=== PATIENT | female | born 1970 | race Caucasian/White ===

== ENCOUNTER 2016-05-22 15:23 | Emergency (ER) | payer MEDICAID ==
[2016-05-22] VITALS (7 sets, daily range): BP systolic 103–120; BP diastolic 65–81
[~2016-05-22] VITALS: Ht 157.5 cm; Wt 58.0 kg
[~2016-05-22 15:23] MED LIST: CEFD300C2 PO; CLIN300C93 PO; CLON2TAB PO; METH10SO PO; METH40TA3 PO; NICO1PAT5 TD; OXYC5CAP4 PO; PENI500T PO
[2016-05-22 17:10] LABS: BLOOD UREA NITROGEN 13 mg/dL (7-18)
[2016-05-22 17:11] LABS: HEMOGLOBIN 6.9 g/dL (11.7-16.4)
[2016-05-22 17:27] LABS: ANISOCYTOSIS 1+; HYPOCHROMIA 1+; MICROCYTOSIS 2+; OVALOCYTES 1+; POLYCHROMASIA 1+
[2016-05-23 00:34] VITALS: BP 110/75
[2016-05-23 01:20] VITALS: BP 119/78
== END 2016-05-23 01:24 | disposition home or self-care (01) ==
LOC: ED 21:46
DX: D50.0 Iron deficiency anemia secondary to blood loss (chronic) (principal); R60.0 Localized edema; E88.09 Other disorders of plasma-protein metabolism, not elsewhere classified; Z90.710 Acquired absence of both cervix and uterus; Z88.8 Allergy status to other drugs, medicaments and biological substances
CPT/HCPCS: 36415; 80048; 82040; 85025; 86850; 86900; 86923; 93005; 99285; P9016; 36430

== ENCOUNTER 2016-11-30 11:31 | Inpatient (IN) | payer MEDICAID ==
[~2016-11-30] VITALS: Ht 157.5 cm; Wt 72.3 kg
[2016-11-30] VITALS (13 sets, daily range): BP systolic 92–119; BP diastolic 57–78
[~2016-11-30 11:31] MED LIST changes: -CEFD300C2 PO; +CEFD300C37 PO; +CLIN300C8 PO; -CLIN300C93 PO; +NICO-487 TD; -NICO1PAT5 TD; +OXYC5CAP2 PO; -OXYC5CAP4 PO
[2016-11-30] MEDS ORDERED: SODIUM CHLORIDE 0.9% 1,000 ML IV ONE (12:14)
[2016-11-30] MEDS ORDERED: ASPIRIN 81 MG TABLET CHEW PO ONE (12:30)
[2016-11-30] MEDS ORDERED: LORazepam 2 MG/ML, 1ML IVPush ONE (12:30)
[2016-11-30 12:38] LABS: DAU SCREEN DISCLAIMER
[2016-11-30] MEDS ORDERED: ASPIRIN 81 MG TABLET CHEW ONE (12:39)
[2016-11-30] MEDS ORDERED: LORazepam 2 MG/ML, 1ML ONE (12:40)
[2016-11-30 12:56] LABS: BLOOD UREA NITROGEN 18 mg/dL (7-18)
[2016-11-30 12:57] LABS: WHITE BLOOD COUNT 15.3 x10^3/uL (3.4-10)
[2016-11-30 13:02] LABS: ASPARTATE AMINO TRANSFERASE 21 U/L (15-37)
[2016-11-30 13:03] LABS: IS PT STATUS REG ER OR PRE ER? YES
[2016-11-30 13:05] LABS: HEMOGLOBIN 5.2 g/dL (11.7-16.4)
[2016-11-30 13:06] LABS: HEMATOCRIT 18.3 % (34.6-47.8)
[2016-11-30 13:18] LABS: DIFF TOTAL CELLS COUNTED 100 CELL DIFF
[2016-11-30 13:21] LABS: ANISOCYTOSIS 2+; HYPOCHROMIA 1+; MICROCYTOSIS 2+; POLYCHROMASIA 1+; VERIFY COUNTS? YES
[2016-11-30 13:22] LABS: OVALOCYTES 1+; TARGET CELLS 1+
[2016-11-30 14:38] LABS: TOTAL IRON BINDING CAPACITY 584 mcg/dL (250-450)
[2016-11-30] MEDS ORDERED: OMNIPAQUE 350 MG/ML, 100ML BOTTLE ONE (15:24)
[2016-11-30] MEDS ORDERED: ACETAMINOPHEN 325 MG TABLET PO PRN (17:30)
[2016-11-30] MEDS ORDERED: ONDANSETRON ODT 4 MG PO PRN (17:30)
[2016-11-30] MEDS ORDERED: DOCUSATE 100 MG CAPSULE PO PRN (17:30)
[2016-11-30] MEDS ORDERED: BISACODYL 10 MG SUPP PR PRN (17:30)
[2016-11-30] MEDS ORDERED: ONDANSETRON 2MG/ML, 2ML IVPush PRN (17:30)
[2016-11-30] MEDS ORDERED: POLYETHYLENE GLYCOL 17 GM PACKET PO PRN (17:30)
[2016-11-30] MEDS: GUAIFENESIN 200 MG TABLET PO SCH ×2 (18:35→20:15)
[2016-11-30] MEDS: NICOTINE 7 MG/24 HR PATCH.TD24 TD SCH (19:17)
[2016-11-30] MEDS: AMOXICILLIN/CLAV 875-125MG TABLET PO SCH (20:15)
[2016-11-30] MEDS: SODIUM CHLORIDE NASAL SPRAY 45ML BOTTLE NAS SCH (21:41)
[2016-11-30] MEDS: FLUTICASONE NASAL SPRAY 16GM NAS SCH (21:41)
[2016-12-01] MEDS: SODIUM CHLORIDE 0.9% 1,000 ML IV SCH ×2 (00:15→11:41)
[2016-12-01 01:42] LABS: HEMATOCRIT 27.1 % (34.6-47.8); HEMOGLOBIN 8.4 g/dL (11.7-16.4)
[2016-12-01 01:49] VITALS: BP 103/63
[2016-12-01] MEDS: GUAIFENESIN 200 MG TABLET PO SCH ×3 (05:30→17:06)
[2016-12-01 06:28] LABS: BLOOD UREA NITROGEN 19 mg/dL (7-18)
[2016-12-01 06:32] LABS: ASPARTATE AMINO TRANSFERASE 14 U/L (15-37)
[2016-12-01 06:47] LABS: HEMATOCRIT 28.1 % (34.6-47.8); HEMOGLOBIN 8.7 g/dL (11.7-16.4); WHITE BLOOD COUNT 11.6 x10^3/uL (3.4-10)
[2016-12-01 06:48] LABS: DIFF TOTAL CELLS COUNTED 100 CELL DIFF
[2016-12-01 06:50] LABS: ANISOCYTOSIS 2+; HYPOCHROMIA 2+; MICROCYTOSIS 2+; POLYCHROMASIA 1+; VERIFY COUNTS? YES
[2016-12-01 06:51] LABS: OVALOCYTES 1+
[2016-12-01 07:00] LABS: SCHISTOCYTES 1+
[2016-12-01] MEDS ORDERED: PANTOPRAZOLE 40 MG IV IVPush SCH (07:30)
[2016-12-01 07:42] VITALS: BP 105/67
[2016-12-01] MEDS: AMOXICILLIN/CLAV 875-125MG TABLET PO SCH (08:31)
[2016-12-01] MEDS: SODIUM CHLORIDE NASAL SPRAY 45ML BOTTLE NAS SCH (08:31)
[2016-12-01] MEDS: FLUTICASONE NASAL SPRAY 16GM NAS SCH (08:31)
[2016-12-01] MEDS ORDERED: METHADONE 10 MG TABLET PO SCH (09:00)
[2016-12-01] MEDS ORDERED: IRON SUCROSE COMPLEX 100MG/5ML IV SCH (09:00)
[2016-12-01 11:54] LABS: HEMATOCRIT 27.4 % (34.6-47.8); HEMOGLOBIN 8.6 g/dL (11.7-16.4)
[2016-12-01 13:08] VITALS: BP 110/57
[2016-12-01] MEDS ORDERED: METH-356 PO (15:42)
[2016-12-01] MEDS ORDERED: FLUT16SP NAS (15:42)
[2016-12-01] MEDS ORDERED: AMOX1TAB12 PO (15:42)
[2016-12-01 16:16] LABS: HEMATOCRIT 27.2 % (34.6-47.8); HEMOGLOBIN 8.3 g/dL (11.7-16.4)
[2016-12-01] MEDS: NICOTINE 7 MG/24 HR PATCH.TD24 TD SCH (18:18)
[2016-12-02] MEDS ORDERED: METHADONE 10 MG TABLET PO SCH (09:00)
== END 2016-12-01 18:35 | disposition home or self-care (01) | DRG 812 ==
LOC: ED 15:26 → EDIP 15:27 → ED 15:36 → 3NW 16:31
PROVIDERS: ADMIT Hospitalist; ATTEND Hospitalist
PROC: 30233N1 Transfusion of Nonautologous Red Blood Cells into Peripheral Vein, Percutaneous Approach (ICD-10-PCS; principal; 2016-11-30)
DX: D50.9 Iron deficiency anemia, unspecified (principal); E44.0 Moderate protein-calorie malnutrition; E87.1 Hypo-osmolality and hyponatremia; D47.3 Essential (hemorrhagic) thrombocythemia; Z68.29 Body mass index [BMI] 29.0-29.9, adult; F15.10 Other stimulant abuse, uncomplicated; F17.200 Nicotine dependence, unspecified, uncomplicated; F41.1 Generalized anxiety disorder; I10 Essential (primary) hypertension; J01.90 Acute sinusitis, unspecified; J40 Bronchitis, not specified as acute or chronic; K44.9 Diaphragmatic hernia without obstruction or gangrene; Z85.43 Personal history of malignant neoplasm of ovary; Z87.11 Personal history of peptic ulcer disease; Z88.6 Allergy status to analgesic agent; Z88.8 Allergy status to other drugs, medicaments and biological substances
CPT/HCPCS: 36415; 71010; 71020; 71275; 80053; 80307; 82607; 82746; 83540; 83550; 83880; 84443; 84484; 85014; 85018; 85025; 85045; 85379; 85610; 86850; 86900; 86923; 93005; 93306; 94640; J1756; Q9967; C9113; G0479; J2060; J7030; P9016

== ENCOUNTER 2017-01-25 16:34 | Inpatient (IN) | payer MEDICAID ==
[~2017-01-25] VITALS: Ht 157.5 cm; Wt 76.8 kg
[2017-01-25] VITALS (7 sets, daily range): BP systolic 102–114; BP diastolic 63–78
[~2017-01-25 16:34] MED LIST changes: +AMOX1TAB12 PO; +FLUT16SP NAS; +METH-356 PO
[2017-01-25 17:31] LABS: ASPARTATE AMINO TRANSFERASE 14 U/L (15-37); BLOOD UREA NITROGEN 14 mg/dL (7-18); WHITE BLOOD COUNT 12.7 x10^3/uL (3.4-10)
[2017-01-25 17:33] LABS: HEMATOCRIT 16.1 % (34.6-47.8); HEMOGLOBIN 4.6 g/dL (11.7-16.4)
[2017-01-25] MEDS ORDERED: SODIUM CHLORIDE 0.9% 1,000ML IVBOLUS ONE (18:00)
[2017-01-25 18:06] LABS: DIFF TOTAL CELLS COUNTED 100 CELL DIFF
[2017-01-25 18:20] LABS: VERIFY COUNTS? YES
[2017-01-25 18:21] LABS: HYPOCHROMIA 3+; MICROCYTOSIS 2+; POLYCHROMASIA 1+
[2017-01-25 18:23] LABS: OVALOCYTES 1+; SPHEROCYTES 1+
[2017-01-25] MEDS ORDERED: SODIUM CHLORIDE FLUSH 10ML SYR IVF ONE (18:30)
[2017-01-25] MEDS ORDERED: SODIUM CHLORIDE FLUSH 10ML SYR IVF PRN (19:00)
[2017-01-25] MEDS ORDERED: CLON2TAB PO (20:40)
[2017-01-25] MEDS ORDERED: SODIUM CHLORIDE 0.9% 1,000 ML IV SCH (23:35)
[2017-01-26] VITALS (9 sets, daily range): BP systolic 99–124; BP diastolic 66–80
[2017-01-26] MEDS ORDERED: morphine SULFATE 10 MG/ML, 1ML IVPush PRN
[2017-01-26] MEDS ORDERED: POLYETHYLENE GLYCOL 17 GM PACKET PO PRN
[2017-01-26] MEDS ORDERED: hydrALAzine 20 MG/ML, 1ML IVPush PRN
[2017-01-26] MEDS ORDERED: OXYcodone IR 5MG TABLET PO PRN
[2017-01-26] MEDS ORDERED: ENALAPRILAT 1.25 MG/ML, 2ML IVPush PRN
[2017-01-26] MEDS ORDERED: BISACODYL 10 MG SUPP PR PRN
[2017-01-26] MEDS ORDERED: ONDANSETRON 2MG/ML, 2ML IVPush PRN
[2017-01-26] MEDS ORDERED: ACETAMINOPHEN 325 MG TABLET PO PRN
[2017-01-26] MEDS: NICOTINE 7 MG/24 HR PATCH.TD24 TD SCH (00:22)
[2017-01-26 01:33] LABS: C-REACTIVE PROTEIN, QUANT 0.31 mg/dL (0.02-0.49)
[2017-01-26 01:59] LABS: FERRITIN 1.4 ng/mL (8-252)
[2017-01-26 02:31] LABS: HIV 1&2 ANTIBODY SCREEN Nonreactive (Nonreactive); HIV-1 p24 ANTIGEN Nonreactive (Nonreactive)
[2017-01-26 06:23] LABS: WHITE BLOOD COUNT 7.8 x10^3/uL (3.4-10)
[2017-01-26 06:26] LABS: ASPARTATE AMINO TRANSFERASE 13 U/L (15-37); BLOOD UREA NITROGEN 15 mg/dL (7-18)
[2017-01-26 06:30] LABS: HEMATOCRIT 20.2 % (34.6-47.8); HEMOGLOBIN 6.3 g/dL (11.7-16.4)
[2017-01-26 06:40] LABS: DIFF TOTAL CELLS COUNTED 100 CELL DIFF
[2017-01-26 06:41] LABS: ANISOCYTOSIS 2+; HYPOCHROMIA 2+; MICROCYTOSIS 2+; OVALOCYTES 1+; VERIFY COUNTS? YES
[2017-01-26 06:42] LABS: SCHISTOCYTES 1+
[2017-01-26] MEDS: SENNA/DOCUSATE TABLET PO SCH (08:16)
[2017-01-26] MEDS: FLUTICASONE NASAL SPRAY 16GM NAS SCH ×3 (08:16→20:51)
[2017-01-26] MEDS ORDERED: METHADONE 10 MG TABLET PO SCH (09:00)
[2017-01-26] MEDS: IRON SUCROSE COMPLEX 100MG/5ML IV SCH (13:05)
[2017-01-26 13:56] LABS: HEMATOCRIT 26.6 % (34.6-47.8); HEMOGLOBIN 8.3 g/dL (11.7-16.4)
[2017-01-26 21:11] LABS: HEMATOCRIT 26.6 % (34.6-47.8); HEMOGLOBIN 8.3 g/dL (11.7-16.4)
[2017-01-27] MEDS: NICOTINE 7 MG/24 HR PATCH.TD24 TD SCH (00:53)
[2017-01-27 02:02] VITALS: BP 113/74
[2017-01-27 06:38] VITALS: BP 116/77
[2017-01-27] MEDS ORDERED: CHOL10003 PO (07:37)
[2017-01-27] MEDS ORDERED: FERR325T18 PO (07:37)
[2017-01-27] MEDS: FLUTICASONE NASAL SPRAY 16GM NAS SCH (07:49)
[2017-01-27] MEDS: IRON SUCROSE COMPLEX 100MG/5ML IV SCH (07:50)
[2017-01-27] MEDS: SENNA/DOCUSATE TABLET PO SCH (07:51)
[2017-01-27] MEDS: METHADONE 10 MG TABLET PO SCH ×2 (07:51→09:00)
[2017-01-27] MEDS ORDERED: CHOLECALCIFEROL 1,000 UNIT TABLET PO SCH (09:00)
[2017-01-27] MEDS ORDERED: PNEUMOCOCCAL 23 VACCINE IM-VACC ONE (10:30)
[2017-01-27] MEDS ORDERED: METR500T8 PO (14:22)
== END 2017-01-27 10:54 | disposition home or self-care (01) | DRG 812 ==
LOC: ED 18:31 → EDIP 18:32 → ED 18:36 → 4WST 20:12
PROVIDERS: ADMIT Internal Medicine; ATTEND Internal Medicine
PROC: 30233N1 Transfusion of Nonautologous Red Blood Cells into Peripheral Vein, Percutaneous Approach (ICD-10-PCS; principal; 2017-01-25)
DX: D50.0 Iron deficiency anemia secondary to blood loss (chronic) (principal); E44.0 Moderate protein-calorie malnutrition; I95.9 Hypotension, unspecified; B96.89 Other specified bacterial agents as the cause of diseases classified elsewhere; D58.9 Hereditary hemolytic anemia, unspecified; D72.829 Elevated white blood cell count, unspecified; F11.90 Opioid use, unspecified, uncomplicated; F15.10 Other stimulant abuse, uncomplicated; F17.200 Nicotine dependence, unspecified, uncomplicated; F41.1 Generalized anxiety disorder; J45.909 Unspecified asthma, uncomplicated; K44.9 Diaphragmatic hernia without obstruction or gangrene; N76.0 Acute vaginitis; Z90.710 Acquired absence of both cervix and uterus; G43.909 Migraine, unspecified, not intractable, without status migrainosus; Z90.49 Acquired absence of other specified parts of digestive tract; Z87.81 Personal history of (healed) traumatic fracture; Z71.6 Tobacco abuse counseling
CPT/HCPCS: 36415; 36430; 80053; 80061; 81001; 82247; 82248; 82306; 82607; 82728; 82746; 83010; 83036; 83540; 83550; 83615; 83735; 84439; 84443; 84466; 85014; 85018; 85025; 85045; 85610; 85651; 85730; 86140; 86157; 86703; 86850; 86900; 86923; 87086; 87899; 90732; 93005; 93306; J1756; G0435; J7030; P9016

== ENCOUNTER 2017-03-14 07:49 | Inpatient (IN) | payer MEDICAID ==
[2017-03-14] VITALS (9 sets, daily range): BP systolic 100–109; BP diastolic 63–77
[~2017-03-14] VITALS: Ht 157.5 cm; Wt 76.2 kg
[~2017-03-14 07:49] MED LIST changes: +CHOL10003 PO; +FERR325T18 PO; +METR500T8 PO
[2017-03-14] MEDS ORDERED: SODIUM CHLORIDE FLUSH 10ML SYR IVF ONE (08:00)
[2017-03-14] MEDS ORDERED: SODIUM CHLORIDE 0.9% 1,000ML IVBOLUS ONE (08:00)
[2017-03-14] MEDS ORDERED: MECLIZINE CHEWABLE 25 MG TAB PO ONE (08:00)
[2017-03-14 08:44] LABS: ANION GAP 6 mmol/L (5-15); CALCIUM 7.6 mg/dL (8.5-10.1); CHLORIDE 105 mmol/L (98-107); CREATININE 0.82 mg/dL (0.55-1.02)
[2017-03-14 08:45] LABS: MEAN CORPUSCULAR HEMOGLOBIN 19.1 pg (27.0-34.8); MEAN CORPUSCULAR VOLUME 64.6 fL (80-100); MEAN PLATELET VOLUME 8.9 fL (7.4-10.4); PLATELET COUNT 238 x10^3/uL (130-400); RED BLOOD COUNT 2.61 x10^6/uL (3.82-5.3); RED CELL DISTRIBUTION WIDTH 27.1 % (9.6-15.2)
[2017-03-14 08:48] LABS: TROPONIN I < 0.015 ng/mL (0.000-0.045)
[2017-03-14 08:57] LABS: MEAN CORPUSCULAR HGB CONC 29.2 g/dL (32.4-35.8)
[2017-03-14 08:58] LABS: HEMOGRAM NOTE RECHECKED
[2017-03-14 09:03] LABS: MD YES
[2017-03-14 09:05] LABS: BAND#(MANUAL) 0.11 x10^3/uL; BANDS%(MANUAL) 1 % (0-7); BASOS#(MANUAL) 0.11 x10^3/uL (0-0.1); BASOS% (MANUAL) 1 % (0-1); EOS#(MANUAL) 0.77 x10^3/uL (0.0-0.4); EOS% (MANUAL) 7 % (1-7); LYMPH#(MANUAL) 1.65 x10^3/uL (1-3.4); LYMPHS% (MANUAL) 15 % (22-44); MONOS#(MANUAL) 0.33 x10^3/uL (0.3-2.7); MONOS% (MANUAL) 3 % (2-9); SEG#(MANUAL) 8.03 x10^3/uL (1.8-6.8); SEGS% (MANUAL) 73 % (42-75)
[2017-03-14 09:09] LABS: ANISOCYTOSIS 2+; HYPOCHROMIA 2+; MICROCYTOSIS 2+; OVALOCYTES 1+
[2017-03-14 09:10] LABS: POLYCHROMASIA 1+; TEAR DROPS 1+
[2017-03-14 09:13] LABS: <PLATELET ESTIMATE> ADEQUATE; <PLT MORPHOLOGY> NORMAL PLT MORPH
[2017-03-14 09:28] LABS: INTERNATIONAL NORMALIZED RATIO 0.98 (0.93-1.1); PROTHROMBIN TIME 10.1 Seconds (9.6-11.5)
[2017-03-14] MEDS ORDERED: SODIUM CHLORIDE FLUSH 10ML SYR IVF PRN (09:30)
[2017-03-14] MEDS ORDERED: LABETALOL 5MG/ML, 20ML IVPush PRN (10:30)
[2017-03-14] MEDS ORDERED: HYDROcodone/APAP 5/325 TABLET PO PRN (10:30)
[2017-03-14] MEDS ORDERED: ONDANSETRON 2MG/ML, 2ML IVPush PRN (10:30)
[2017-03-14] MEDS ORDERED: ONDANSETRON ODT 4 MG PO PRN (10:30)
[2017-03-14] MEDS ORDERED: PANTOPRAZOLE 80 MG in SODIUM CHLORIDE 0.9% 50 ML IV ONE (12:16)
[2017-03-14 12:45] LABS: MICROSCOPIC AUTO
[2017-03-14 12:53] LABS: AMPHETAMINE SCREEN, URINE Positive (Negative); BARBITURATE SCREEN, URINE Negative (Negative); BENZODIAZEPINE SCREEN, URINE Positive (Negative); CANNABINOID SCREEN, URINE Negative (Negative); COCAINE SCREEN, URINE Negative (Negative); OPIATE SCREEN, URINE Negative (Negative)
[2017-03-14 12:54] LABS: METHADONE SCREEN, URINE Positive (Negative)
[2017-03-14] MEDS ORDERED: ALBUTEROL SULFATE 2.5 MG/3 ML NPPB PRN (16:00)
[2017-03-14] MEDS: D5%-0.45% NACL 1,000 ML IV SCH (16:33)
[2017-03-14] MEDS: PANTOPRAZOLE 80 MG in SODIUM CHLORIDE 0.9% 100 ML IV SCH (17:55)
[2017-03-14] MEDS: CEFTRIAXONE PMX 1GM/50ML 50 ML IV SCH (17:56)
[2017-03-14 18:31] LABS: RAPID INFLUENZA A Negative (Negative); RAPID INFLUENZA B Negative (Negative)
[2017-03-14] MEDS: FLUTICASONE NASAL SPRAY 16GM NAS SCH (21:02)
[2017-03-15] VITALS (8 sets, daily range): BP systolic 95–120; BP diastolic 58–78
[2017-03-15] MEDS: D5%-0.45% NACL 1,000 ML IV SCH ×2 (04:54→15:00)
[2017-03-15] MEDS: PANTOPRAZOLE 80 MG in SODIUM CHLORIDE 0.9% 100 ML IV SCH (04:54)
[2017-03-15 05:31] LABS: ALBUMIN 2.7 g/dL (3.4-5.0); ANION GAP 6 mmol/L (5-15); CALCIUM 7.6 mg/dL (8.5-10.1); CHLORIDE 107 mmol/L (98-107); CREATININE 0.82 mg/dL (0.55-1.02)
[2017-03-15] MEDS: METHADONE 10 MG TABLET PO SCH (06:05)
[2017-03-15 06:35] LABS: MEAN CORPUSCULAR HEMOGLOBIN 22.1 pg (27.0-34.8); MEAN CORPUSCULAR HGB CONC 31.2 g/dL (32.4-35.8); MEAN PLATELET VOLUME 10.5 fL (7.4-10.4); PLATELET COUNT 254 x10^3/uL (130-400); RED BLOOD COUNT 3.02 x10^6/uL (3.82-5.3); RED CELL DISTRIBUTION WIDTH 27.2 % (9.6-15.2)
[2017-03-15 06:38] LABS: MD YES
[2017-03-15 06:43] LABS: ANISOCYTOSIS 2+; LYMPH#(MANUAL) 0.74 x10^3/uL (1-3.4); LYMPHS% (MANUAL) 6 % (22-44); MONOS#(MANUAL) 0.74 x10^3/uL (0.3-2.7); MONOS% (MANUAL) 6 % (2-9); SEG#(MANUAL) 10.91 x10^3/uL (1.8-6.8); SEGS% (MANUAL) 88 % (42-75)
[2017-03-15 06:44] LABS: HYPOCHROMIA 1+; POLYCHROMASIA 1+
[2017-03-15 06:45] LABS: <PLATELET ESTIMATE> ADEQUATE; <PLT MORPHOLOGY> NORMAL PLT MORPH; MICROCYTOSIS 2+; OVALOCYTES 1+
[2017-03-15] MEDS ORDERED: METHADONE 10 MG TABLET PO SCH (09:00)
[2017-03-15] MEDS ORDERED: MIDAZOLAM 1 MG/ML, 2ML ONE (09:10)
[2017-03-15] MEDS ORDERED: FENTANYL PF 100 MCG/2ML ONE ×2 (09:10)
[2017-03-15] MEDS ORDERED: GOLYTELY 4,000ML ORAL.SOL PO ONE ×2 (10:00→22:00)
[2017-03-15] MEDS: CHOLECALCIFEROL 1,000 UNIT TABLET PO SCH (10:28)
[2017-03-15] MEDS: SENNA/DOCUSATE TABLET PO SCH (10:28)
[2017-03-15] MEDS: FLUTICASONE NASAL SPRAY 16GM NAS SCH ×2 (10:28→20:17)
[2017-03-15] MEDS: CEFTRIAXONE PMX 1GM/50ML 50 ML IV SCH (17:28)
[2017-03-15 18:05] LABS: OCCULT BLOOD POSITIVE (NEGATIVE)
[2017-03-15] MEDS: ACETAMINOPHEN 325 MG TABLET PO PRN (22:32)
[2017-03-16] MEDS: D5%-0.45% NACL 1,000 ML IV SCH ×2 (01:03→15:58)
[2017-03-16 01:35] VITALS: BP 124/73
[2017-03-16 06:35] LABS: MEAN CORPUSCULAR HEMOGLOBIN 22.4 pg (27.0-34.8); MEAN CORPUSCULAR HGB CONC 30.7 g/dL (32.4-35.8); MEAN CORPUSCULAR VOLUME 73.1 fL (80-100); MEAN PLATELET VOLUME 9.4 fL (7.4-10.4); PLATELET COUNT 212 x10^3/uL (130-400); RED BLOOD COUNT 3.42 x10^6/uL (3.82-5.3); RED CELL DISTRIBUTION WIDTH 26.3 % (9.6-15.2)
[2017-03-16 06:47] LABS: ALBUMIN 2.6 g/dL (3.4-5.0); ANION GAP 6 mmol/L (5-15); CALCIUM 7.8 mg/dL (8.5-10.1); CHLORIDE 107 mmol/L (98-107); CREATININE 0.69 mg/dL (0.55-1.02)
[2017-03-16 07:01] LABS: BASOPHILS # (AUTO) 0.01 x10^3/uL (0-0.1); BASOPHILS % (AUTO) 0 % (0-1); EOSINOPHILS # (AUTO) 0.09 x10^3/uL (0-0.4); EOSINOPHILS % (AUTO) 1 % (1-7); LYMPHOCYTES # (AUTO) 3.39 x10^3/uL (1-3.4); LYMPHOCYTES % (AUTO) 22 % (22-44); MD MORPH REVIEW ONLY; MONOCYTES % (AUTO) 6 % (2-9); NEUTROPHILS % (AUTO) 71 % (42-75)
[2017-03-16 07:04] LABS: <PLATELET ESTIMATE> ADEQUATE; <PLT MORPHOLOGY> NORMAL PLT MORPH; ANISOCYTOSIS 2+; HYPOCHROMIA 2+; MICROCYTOSIS 2+
[2017-03-16 08:13] VITALS: BP 116/72
[2017-03-16] MEDS ORDERED: MIDAZOLAM 1 MG/ML, 2ML ONE (08:26)
[2017-03-16] MEDS ORDERED: PROPOFOL 10 MG/ML, 20ML ONE (08:30)
[2017-03-16] MEDS: FLUTICASONE NASAL SPRAY 16GM NAS SCH ×2 (09:00→20:48)
[2017-03-16] MEDS: SENNA/DOCUSATE TABLET PO SCH (09:00)
[2017-03-16] MEDS ORDERED: FENTANYL PF 100 MCG/2ML IV PRN (09:00)
[2017-03-16] MEDS ORDERED: OXYcodone 5 MG/5 ML ORAL.SOL UDC PO PRN (09:00)
[2017-03-16] MEDS ORDERED: HYDROcodone/APAP 7.5-325MG/15ML UDC PO PRN (09:00)
[2017-03-16] MEDS ORDERED: ONDANSETRON 2MG/ML, 2ML IVPush PRN (09:00)
[2017-03-16] MEDS ORDERED: ACETAMINOPHEN 325 MG TABLET PO PRN (09:00)
[2017-03-16] MEDS ORDERED: ACETAMINOPHEN 650 MG/20.3 ML UDC ONE (09:07)
[2017-03-16] MEDS ORDERED: OXYcodone 5 MG/5 ML ORAL.SOL UDC ONE (09:07)
[2017-03-16] MEDS: ACETAMINOPHEN 325 MG TABLET PO PRN (09:10)
[2017-03-16] MEDS ORDERED: FENTANYL PF 100 MCG/2ML ONE (09:11)
[2017-03-16] MEDS: METHADONE 10 MG TABLET PO SCH (09:43)
[2017-03-16] MEDS: CHOLECALCIFEROL 1,000 UNIT TABLET PO SCH (09:45)
[2017-03-16] MEDS: OMEPRAZOLE 20 MG CAPSULE.DR PO SCH (09:46)
[2017-03-16] MEDS: IRON SUCROSE COMPLEX 100MG/5ML IV SCH (09:46)
[2017-03-16 15:20] VITALS: BP 123/75
[2017-03-16 15:59] VITALS: BP 123/75
[2017-03-16] MEDS: CEFTRIAXONE PMX 1GM/50ML 50 ML IV SCH (16:30)
[2017-03-16 19:26] VITALS: BP 123/74
[2017-03-17 01:10] VITALS: BP 110/69
[2017-03-17] MEDS: D5%-0.45% NACL 1,000 ML IV SCH ×2 (02:00→14:43)
[2017-03-17 02:57] LABS: MEAN CORPUSCULAR HEMOGLOBIN 22.3 pg (27.0-34.8); MEAN CORPUSCULAR HGB CONC 30.4 g/dL (32.4-35.8); MEAN CORPUSCULAR VOLUME 73.5 fL (80-100); MEAN PLATELET VOLUME 10.5 fL (7.4-10.4); PLATELET COUNT 238 x10^3/uL (130-400); RED BLOOD COUNT 3.36 x10^6/uL (3.82-5.3); RED CELL DISTRIBUTION WIDTH 27.9 % (9.6-15.2)
[2017-03-17 02:59] LABS: ALBUMIN 2.6 g/dL (3.4-5.0); ANION GAP 9 mmol/L (5-15); CALCIUM 7.7 mg/dL (8.5-10.1); CHLORIDE 106 mmol/L (98-107); CREATININE 0.75 mg/dL (0.55-1.02)
[2017-03-17 03:31] LABS: BASOPHILS # (AUTO) 0.01 x10^3/uL (0-0.1); BASOPHILS % (AUTO) 0 % (0-1); EOSINOPHILS # (AUTO) 0.01 x10^3/uL (0-0.4); EOSINOPHILS % (AUTO) 0 % (1-7); LYMPHOCYTES # (AUTO) 2.32 x10^3/uL (1-3.4); LYMPHOCYTES % (AUTO) 18 % (22-44); MD MORPH REVIEW ONLY; MONOCYTES # (AUTO) 0.78 x10^3/uL (0.2-0.8); MONOCYTES % (AUTO) 6 % (2-9); NEUTROPHILS # (AUTO) 10.11 x10^3/uL (1.8-6.8); NEUTROPHILS % (AUTO) 76 % (42-75)
[2017-03-17 03:32] LABS: ANISOCYTOSIS 2+; HYPOCHROMIA 2+; MICROCYTOSIS 2+; POLYCHROMASIA 1+
[2017-03-17 03:34] LABS: OVALOCYTES 1+; TEAR DROPS 1+
[2017-03-17 03:35] LABS: <PLATELET ESTIMATE> ADEQUATE; LARGE PLATELETS 1+
[2017-03-17] MEDS: METHADONE 10 MG TABLET PO SCH (05:39)
[2017-03-17 07:17] VITALS: BP 130/85
[2017-03-17] MEDS ORDERED: MAGNESIUM SULFATE PMX 2GM/50ML 50 ML IV ONE (08:00)
[2017-03-17] MEDS ORDERED: POTASSIUM CHLORIDE 20 MEQ TAB.ER.PRT PO ONE (08:00)
[2017-03-17] MEDS: SENNA/DOCUSATE TABLET PO SCH (08:02)
[2017-03-17] MEDS: CHOLECALCIFEROL 1,000 UNIT TABLET PO SCH (08:27)
[2017-03-17] MEDS: OMEPRAZOLE 20 MG CAPSULE.DR PO SCH (08:27)
[2017-03-17] MEDS: IRON SUCROSE COMPLEX 100MG/5ML IV SCH (08:27)
[2017-03-17] MEDS: FLUTICASONE NASAL SPRAY 16GM NAS SCH ×2 (09:00→21:07)
[2017-03-17 13:27] VITALS: BP 116/74
[2017-03-17] MEDS: CEFTRIAXONE PMX 1GM/50ML 50 ML IV SCH (18:12)
[2017-03-17 21:16] VITALS: BP 121/72
[2017-03-18 02:30] VITALS: BP 132/79
[2017-03-18] MEDS: D5%-0.45% NACL 1,000 ML IV SCH ×2 (03:10→11:00)
[2017-03-18 03:28] LABS: MEAN CORPUSCULAR HGB CONC 31.1 g/dL (32.4-35.8); MEAN CORPUSCULAR VOLUME 73.7 fL (80-100); MEAN PLATELET VOLUME 10.6 fL (7.4-10.4); PLATELET COUNT 247 x10^3/uL (130-400); RED BLOOD COUNT 3.41 x10^6/uL (3.82-5.3); RED CELL DISTRIBUTION WIDTH 27.8 % (9.6-15.2)
[2017-03-18 03:35] LABS: ALBUMIN 2.7 g/dL (3.4-5.0); ANION GAP 10 mmol/L (5-15); CALCIUM 7.8 mg/dL (8.5-10.1); CHLORIDE 106 mmol/L (98-107); CREATININE 0.84 mg/dL (0.55-1.02)
[2017-03-18 03:39] LABS: MD YES
[2017-03-18 03:47] LABS: ANISOCYTOSIS 2+; BASOS#(MANUAL) 0.14 x10^3/uL (0-0.1); BASOS% (MANUAL) 1 % (0-1); HYPOCHROMIA 2+; LYMPH#(MANUAL) 2.57 x10^3/uL (1-3.4); LYMPHS% (MANUAL) 18 % (22-44); MICROCYTOSIS 2+; MONOS#(MANUAL) 0.43 x10^3/uL (0.3-2.7); MONOS% (MANUAL) 3 % (2-9); POLYCHROMASIA 1+; SEG#(MANUAL) 11.15 x10^3/uL (1.8-6.8); SEGS% (MANUAL) 78 % (42-75)
[2017-03-18 03:49] LABS: <PLATELET ESTIMATE> ADEQUATE
[2017-03-18 03:50] LABS: LARGE PLATELETS 1+
[2017-03-18] MEDS: METHADONE 10 MG TABLET PO SCH (06:32)
[2017-03-18 06:55] VITALS: BP 137/88
[2017-03-18] MEDS: SENNA/DOCUSATE TABLET PO SCH (07:51)
[2017-03-18] MEDS: FLUTICASONE NASAL SPRAY 16GM NAS SCH (09:00)
[2017-03-18] MEDS: OMEPRAZOLE 20 MG CAPSULE.DR PO SCH (09:41)
[2017-03-18] MEDS: IRON SUCROSE COMPLEX 100MG/5ML IV SCH (09:41)
[2017-03-18] MEDS: CHOLECALCIFEROL 1,000 UNIT TABLET PO SCH (09:43)
[2017-03-18] MEDS ORDERED: OMEP-110 PO (11:21)
[2017-03-18] MEDS ORDERED: CEFTRIAXONE PMX 1GM/50ML 50 ML IV SCH (11:30)
[2017-03-18 13:31] VITALS: BP 127/76
== END 2017-03-18 15:55 | disposition home or self-care (01) | DRG 871 ==
LOC: ED 08:55 → EDIP 09:21 → 4WST 12:07
PROVIDERS: ADMIT Internal Medicine; ATTEND Internal Medicine
PROC: 30233N1 Transfusion of Nonautologous Red Blood Cells into Peripheral Vein, Percutaneous Approach (ICD-10-PCS; principal; 2017-03-14)
PROC: 02HV33Z Insertion of Infusion Device into Superior Vena Cava, Percutaneous Approach (ICD-10-PCS; 2017-03-14)
PROC: B5181ZA Fluoroscopy of Superior Vena Cava using Low Osmolar Contrast, Guidance (ICD-10-PCS; 2017-03-14)
PROC: B548ZZA Ultrasonography of Superior Vena Cava, Guidance (ICD-10-PCS; 2017-03-14)
PROC: 0DJ08ZZ Inspection of Upper Intestinal Tract, Via Natural or Artificial Opening Endoscopic (ICD-10-PCS; 2017-03-15)
DX: A41.9 Sepsis, unspecified organism (principal); E43 Unspecified severe protein-calorie malnutrition; J96.01 Acute respiratory failure with hypoxia; D62 Acute posthemorrhagic anemia; F11.10 Opioid abuse, uncomplicated; F15.10 Other stimulant abuse, uncomplicated; F17.200 Nicotine dependence, unspecified, uncomplicated; F41.9 Anxiety disorder, unspecified; I10 Essential (primary) hypertension; J45.909 Unspecified asthma, uncomplicated; K44.9 Diaphragmatic hernia without obstruction or gangrene; Z85.43 Personal history of malignant neoplasm of ovary; Z90.710 Acquired absence of both cervix and uterus; Z68.30 Body mass index [BMI] 30.0-30.9, adult
CPT/HCPCS: 36415; 36430; 36569; 71045; 71046; 76937; 77001; 80048; 80307; 81001; 82040; 82272; 82728; 83540; 83550; 83605; 83735; 84100; 84145; 84484; 85014; 85018; 85025; 85610; 85730; 86850; 86900; 86923; 87040; 87077; 87086; 87400; 93005; 99152; 99153; J0696; J1756; J2250; J2704; J3010; C1751; C9113; J3475; J7512; P9016

== ENCOUNTER 2017-05-02 20:54 | Inpatient (IN) | payer MEDICAID ==
[~2017-05-02] VITALS: Ht 157.5 cm; Wt 75.0 kg
[~2017-05-02 20:54] MED LIST changes: +OMEP-110 PO
[2017-05-02] MEDS ORDERED: CLINDAMYCIN PMX 600MG/50ML 50 ML IV ONE (22:00)
[2017-05-02] MEDS ORDERED: CLINDAMYCIN PMX 600MG/50ML 50 ML ONE ×2 (22:17→22:18)
[2017-05-02 22:29] LABS: MEAN CORPUSCULAR VOLUME 64.1 fL (80-100); MEAN PLATELET VOLUME 8.4 fL (7.4-10.4); PLATELET COUNT 450 x10^3/uL (130-400); RED BLOOD COUNT 3.17 x10^6/uL (3.82-5.3); RED CELL DISTRIBUTION WIDTH 26.5 % (9.6-15.2)
[2017-05-02 22:31] LABS: ALBUMIN 3.4 g/dL (3.4-5.0); ANION GAP 7 mmol/L (5-15); CALCIUM 7.8 mg/dL (8.5-10.1); CHLORIDE 106 mmol/L (98-107); CREATININE 1.22 mg/dL (0.55-1.02)
[2017-05-02 22:32] LABS: MEAN CORPUSCULAR HGB CONC 29.6 g/dL (32.4-35.8)
[2017-05-02 22:44] LABS: MD YES
[2017-05-02 22:47] LABS: LYMPH#(MANUAL) 3.69 x10^3/uL (1-3.4); LYMPHS% (MANUAL) 31 % (22-44); MONOS#(MANUAL) 0.12 x10^3/uL (0.3-2.7); MONOS% (MANUAL) 1 % (2-9); SEG#(MANUAL) 8.09 x10^3/uL (1.8-6.8); SEGS% (MANUAL) 68 % (42-75)
[2017-05-02 22:48] LABS: <PLATELET ESTIMATE> ADEQUATE; <PLT MORPHOLOGY> NORMAL PLT MORPH; ANISOCYTOSIS 2+; HYPOCHROMIA 2+; MICROCYTOSIS 2+; POLYCHROMASIA 1+
[2017-05-03] VITALS (13 sets, daily range): BP systolic 89–123; BP diastolic 49–81
[2017-05-03] MEDS ORDERED: ONDANSETRON 2MG/ML, 2ML IVPush PRN
[2017-05-03] MEDS ORDERED: HEPARIN 5,000 UNITS/ML, 1ML SQ SCH (00:30)
[2017-05-03] MEDS ORDERED: POLYETHYLENE GLYCOL 17 GM PACKET PO PRN (00:30)
[2017-05-03] MEDS ORDERED: BISACODYL 10 MG SUPP PR PRN (00:30)
[2017-05-03] MEDS ORDERED: KETOROLAC 30 MG/1 ML IVPush SCH (00:30)
[2017-05-03] MEDS ORDERED: POTASSIUM CHLORIDE 20 MEQ TAB.ER.PRT PO ONE (00:30)
[2017-05-03] MEDS ORDERED: CALCIUM GLUCONATE 4.6 MEQ in SODIUM CHLORIDE 0.9% 50 ML IV ONE (00:30)
[2017-05-03] MEDS ORDERED: ONDANSETRON ODT 4 MG PO PRN (00:30)
[2017-05-03] MEDS: CLINDAMYCIN PMX 600MG/50ML 50 ML IV SCH ×3 (01:23→20:15)
[2017-05-03] MEDS: ACETAMINOPHEN 325 MG TABLET PO PRN (01:24)
[2017-05-03] MEDS: ALPRazolam 1MG TABLET PO PRN ×2 (01:24→20:15)
[2017-05-03] MEDS: FERROUS SULFATE 325 MG TABLET PO SCH ×3 (02:54→12:26)
[2017-05-03] MEDS: METHADONE 10 MG TABLET PO SCH (06:44)
[2017-05-03 08:14] LABS: MEAN CORPUSCULAR HEMOGLOBIN 21.2 pg (27.0-34.8); MEAN CORPUSCULAR HGB CONC 30.5 g/dL (32.4-35.8); MEAN CORPUSCULAR VOLUME 69.6 fL (80-100); MEAN PLATELET VOLUME 9.3 fL (7.4-10.4); PLATELET COUNT 399 x10^3/uL (130-400); RED CELL DISTRIBUTION WIDTH 28.8 % (9.6-15.2)
[2017-05-03 08:18] LABS: ALANINE AMINOTRANSFERASE 17 U/L (12-78); ALBUMIN 2.9 g/dL (3.4-5.0); ANION GAP 7 mmol/L (5-15); CALCIUM 8.1 mg/dL (8.5-10.1); CHLORIDE 108 mmol/L (98-107); CREATININE 0.76 mg/dL (0.55-1.02)
[2017-05-03 08:21] LABS: ALKALINE PHOSPHATASE 75 U/L (45-117); BILIRUBIN,TOTAL 1.4 mg/dL (0.2-1.0); TOTAL PROTEIN 6.3 g/dL (6.4-8.2)
[2017-05-03] MEDS: OMEPRAZOLE 20 MG CAPSULE.DR PO SCH (08:30)
[2017-05-03 08:56] LABS: MD YES
[2017-05-03 08:59] LABS: ANISOCYTOSIS 2+; EOS#(MANUAL) 0.16 x10^3/uL (0.0-0.4); EOS% (MANUAL) 2 % (1-7); LYMPH#(MANUAL) 1.64 x10^3/uL (1-3.4); LYMPHS% (MANUAL) 20 % (22-44); MONOS#(MANUAL) 0.57 x10^3/uL (0.3-2.7); MONOS% (MANUAL) 7 % (2-9); SEG#(MANUAL) 5.82 x10^3/uL (1.8-6.8); SEGS% (MANUAL) 71 % (42-75)
[2017-05-03 09:00] LABS: HYPOCHROMIA 1+; MICROCYTOSIS 2+; POLYCHROMASIA 1+
[2017-05-03] MEDS ORDERED: METHADONE 10 MG TABLET PO SCH (09:00)
[2017-05-03 09:01] LABS: <PLATELET ESTIMATE> ADEQUATE; LARGE PLATELETS 1+
[2017-05-03] MEDS: CHOLECALCIFEROL 1,000 UNIT TABLET PO SCH (10:13)
[2017-05-03] MEDS: SENNA/DOCUSATE TABLET PO SCH (10:13)
[2017-05-03] MEDS: SODIUM CHLORIDE FLUSH 10ML SYR IVF SCH ×2 (10:16→20:23)
[2017-05-03] MEDS ORDERED: EPINEPHRINE 1 MG/ML, 1ML SQ ONE (13:30)
[2017-05-03] MEDS ORDERED: IRON DEXTRAN COMPLEX 25 MG in SODIUM CHLORIDE 0.9% 50 ML IV ONE (13:30)
[2017-05-03] MEDS ORDERED: IRON DEXTRAN IV PER PHARMACY IV PRN (13:30)
[2017-05-03] MEDS ORDERED: IRON DEXTRAN COMPLEX 1,450 MG in SODIUM CHLORIDE 0.9% 250 ML IV ONE (16:00)
[2017-05-04 01:14] VITALS: BP 103/70
[2017-05-04] MEDS: ACETAMINOPHEN 325 MG TABLET PO PRN (02:03)
[2017-05-04] MEDS: CLINDAMYCIN PMX 600MG/50ML 50 ML IV SCH ×3 (04:26→20:21)
[2017-05-04 05:37] LABS: MEAN CORPUSCULAR HEMOGLOBIN 21.8 pg (27.0-34.8); MEAN CORPUSCULAR HGB CONC 30.9 g/dL (32.4-35.8); MEAN CORPUSCULAR VOLUME 70.6 fL (80-100); MEAN PLATELET VOLUME 9.3 fL (7.4-10.4); PLATELET COUNT 408 x10^3/uL (130-400); RED BLOOD COUNT 3.67 x10^6/uL (3.82-5.3); RED CELL DISTRIBUTION WIDTH 29.2 % (9.6-15.2)
[2017-05-04 05:44] LABS: CALCIUM 7.9 mg/dL (8.5-10.1); CHLORIDE 112 mmol/L (98-107)
[2017-05-04 05:51] LABS: ALBUMIN 2.6 g/dL (3.4-5.0); ALKALINE PHOSPHATASE 75 U/L (45-117); ANION GAP 6 mmol/L (5-15); BILIRUBIN,TOTAL 0.2 mg/dL (0.2-1.0); CREATININE 0.82 mg/dL (0.55-1.02); TOTAL PROTEIN 6.1 g/dL (6.4-8.2)
[2017-05-04 05:54] LABS: ALANINE AMINOTRANSFERASE 15 U/L (12-78)
[2017-05-04 06:17] LABS: BASOPHILS % (AUTO) 0 % (0-1); EOSINOPHILS # (AUTO) 0.17 x10^3/uL (0-0.4); EOSINOPHILS % (AUTO) 2 % (1-7); LYMPHOCYTES # (AUTO) 2.59 x10^3/uL (1-3.4); LYMPHOCYTES % (AUTO) 26 % (22-44); MD MORPH REVIEW ONLY; MONOCYTES % (AUTO) 11 % (2-9); NEUTROPHILS % (AUTO) 62 % (42-75)
[2017-05-04] MEDS: METHADONE 10 MG TABLET PO SCH (06:25)
[2017-05-04 06:31] LABS: <PLATELET ESTIMATE> ADEQUATE; <PLT MORPHOLOGY> NORMAL PLT MORPH; ANISOCYTOSIS 2+; HYPOCHROMIA 2+; MICROCYTOSIS 2+
[2017-05-04 07:17] VITALS: BP 107/67
[2017-05-04] MEDS: CHOLECALCIFEROL 1,000 UNIT TABLET PO SCH (08:36)
[2017-05-04] MEDS: OMEPRAZOLE 20 MG CAPSULE.DR PO SCH (08:36)
[2017-05-04] MEDS: SODIUM CHLORIDE FLUSH 10ML SYR IVF SCH ×2 (08:37→20:22)
[2017-05-04] MEDS: SENNA/DOCUSATE TABLET PO SCH (08:40)
[2017-05-04] MEDS: ALPRazolam 1MG TABLET PO PRN ×2 (08:46→21:41)
[2017-05-04 14:25] VITALS: BP 94/62
[2017-05-04 15:00] LABS: ANION GAP 7 mmol/L (5-15); CALCIUM 7.8 mg/dL (8.5-10.1); CHLORIDE 111 mmol/L (98-107); CREATININE 0.89 mg/dL (0.55-1.02)
[2017-05-04 15:01] LABS: ALBUMIN 2.7 g/dL (3.4-5.0)
[2017-05-04 15:03] LABS: ALKALINE PHOSPHATASE 76 U/L (45-117); BILIRUBIN,TOTAL 0.2 mg/dL (0.2-1.0); TOTAL PROTEIN 6.2 g/dL (6.4-8.2)
[2017-05-04 15:18] LABS: BASOPHILS % (AUTO) 0 % (0-1); EOSINOPHILS # (AUTO) 0.24 x10^3/uL (0-0.4); EOSINOPHILS % (AUTO) 2 % (1-7); LYMPHOCYTES # (AUTO) 2.55 x10^3/uL (1-3.4); LYMPHOCYTES % (AUTO) 24 % (22-44); MD MORPH REVIEW ONLY; MEAN CORPUSCULAR HEMOGLOBIN 21.5 pg (27.0-34.8); MEAN CORPUSCULAR HGB CONC 30.4 g/dL (32.4-35.8); MEAN CORPUSCULAR VOLUME 70.7 fL (80-100); MEAN PLATELET VOLUME 9.2 fL (7.4-10.4); MONOCYTES # (AUTO) 1.22 x10^3/uL (0.2-0.8); MONOCYTES % (AUTO) 12 % (2-9); NEUTROPHILS # (AUTO) 6.47 x10^3/uL (1.8-6.8); NEUTROPHILS % (AUTO) 62 % (42-75); PLATELET COUNT 412 x10^3/uL (130-400); RED BLOOD COUNT 3.78 x10^6/uL (3.82-5.3); RED CELL DISTRIBUTION WIDTH 27.9 % (9.6-15.2)
[2017-05-04 15:19] LABS: <PLATELET ESTIMATE> ADEQUATE; ANISOCYTOSIS 2+; HYPOCHROMIA 2+; MICROCYTOSIS 1+; POLYCHROMASIA 1+
[2017-05-04 15:20] LABS: <PLT MORPHOLOGY> NORMAL PLT MORPH
[2017-05-04 15:23] LABS: ALANINE AMINOTRANSFERASE 16 U/L (12-78)
[2017-05-04 19:07] VITALS: BP 109/71
[2017-05-05 00:44] VITALS: BP 106/64
[2017-05-05] MEDS: CLINDAMYCIN PMX 600MG/50ML 50 ML IV SCH ×3 (03:59→19:46)
[2017-05-05] MEDS: METHADONE 10 MG TABLET PO SCH (05:37)
[2017-05-05] MEDS: ACETAMINOPHEN 325 MG TABLET PO PRN ×3 (05:58→21:47)
[2017-05-05 08:40] VITALS: BP 101/63
[2017-05-05] MEDS: CHOLECALCIFEROL 1,000 UNIT TABLET PO SCH (08:46)
[2017-05-05] MEDS: OMEPRAZOLE 20 MG CAPSULE.DR PO SCH (08:46)
[2017-05-05] MEDS: ALPRazolam 1MG TABLET PO PRN (08:46)
[2017-05-05] MEDS: SODIUM CHLORIDE FLUSH 10ML SYR IVF SCH ×2 (08:46→19:47)
[2017-05-05] MEDS: SENNA/DOCUSATE TABLET PO SCH (08:47)
[2017-05-05] MEDS ORDERED: ALPR0.25 PO (11:01)
[2017-05-05 12:09] VITALS: BP 113/77
[2017-05-05 19:10] VITALS: BP 119/72
[2017-05-06 02:19] VITALS: BP 108/67
[2017-05-06] MEDS: CLINDAMYCIN PMX 600MG/50ML 50 ML IV SCH ×2 (04:03→11:24)
[2017-05-06 05:06] LABS: ALANINE AMINOTRANSFERASE 11 U/L (12-78); ALBUMIN 2.6 g/dL (3.4-5.0); ANION GAP 9 mmol/L (5-15); CALCIUM 7.8 mg/dL (8.5-10.1); CHLORIDE 107 mmol/L (98-107); CREATININE 0.78 mg/dL (0.55-1.02)
[2017-05-06 05:09] LABS: ALKALINE PHOSPHATASE 71 U/L (45-117); BILIRUBIN,TOTAL 0.1 mg/dL (0.2-1.0); TOTAL PROTEIN 5.6 g/dL (6.4-8.2)
[2017-05-06] MEDS: METHADONE 10 MG TABLET PO SCH (06:00)
[2017-05-06 06:31] LABS: MEAN CORPUSCULAR HEMOGLOBIN 21.7 pg (27.0-34.8); MEAN CORPUSCULAR HGB CONC 30.3 g/dL (32.4-35.8); MEAN CORPUSCULAR VOLUME 71.6 fL (80-100); PLATELET COUNT 390 x10^3/uL (130-400); RED BLOOD COUNT 3.81 x10^6/uL (3.82-5.3); RED CELL DISTRIBUTION WIDTH 29.4 % (9.6-15.2)
[2017-05-06 06:47] LABS: MD MORPH REVIEW ONLY
[2017-05-06 06:48] LABS: ANISOCYTOSIS 1+; MICROCYTOSIS 1+
[2017-05-06 06:49] LABS: HYPOCHROMIA 2+; OVALOCYTES 1+; POLYCHROMASIA 1+; TARGET CELLS 1+
[2017-05-06 06:52] LABS: <PLATELET ESTIMATE> ADEQUATE
[2017-05-06 06:53] LABS: <PLT MORPHOLOGY> NORMAL PLT MORPH
[2017-05-06 06:54] LABS: BASOPHILS # (AUTO) 0.02 x10^3/uL (0-0.1); BASOPHILS % (AUTO) 0 % (0-1); EOSINOPHILS # (AUTO) 0.43 x10^3/uL (0-0.4); EOSINOPHILS % (AUTO) 5 % (1-7); LYMPHOCYTES # (AUTO) 2.23 x10^3/uL (1-3.4); LYMPHOCYTES % (AUTO) 26 % (22-44); MONOCYTES # (AUTO) 0.97 x10^3/uL (0.2-0.8); MONOCYTES % (AUTO) 12 % (2-9); NEUTROPHILS # (AUTO) 4.79 x10^3/uL (1.8-6.8); NEUTROPHILS % (AUTO) 57 % (42-75)
[2017-05-06 08:11] VITALS: BP 120/84
[2017-05-06] MEDS: SODIUM CHLORIDE FLUSH 10ML SYR IVF SCH (08:17)
[2017-05-06] MEDS: SENNA/DOCUSATE TABLET PO SCH (08:17)
[2017-05-06] MEDS: CHOLECALCIFEROL 1,000 UNIT TABLET PO SCH (08:17)
[2017-05-06] MEDS: ACETAMINOPHEN 325 MG TABLET PO PRN (11:30)
[2017-05-06] MEDS ORDERED: CLIN300C8 PO (13:53)
[2017-05-06] MEDS ORDERED: FERROUS SULFATE 325 MG TABLET PO SCH (14:00)
[2017-05-06 14:40] VITALS: BP 113/71
== END 2017-05-06 16:04 | disposition home or self-care (01) | DRG 602 ==
LOC: ED 22:00 → EDIP 23:49 → 4WST 05-03 00:27
PROVIDERS: ADMIT Internal Medicine; ATTEND Internal Medicine
PROC: 30233N1 Transfusion of Nonautologous Red Blood Cells into Peripheral Vein, Percutaneous Approach (ICD-10-PCS; principal; 2017-05-03)
DX: L03.113 Cellulitis of right upper limb (principal); E43 Unspecified severe protein-calorie malnutrition; N17.0 Acute kidney failure with tubular necrosis; F11.10 Opioid abuse, uncomplicated; D50.9 Iron deficiency anemia, unspecified; D72.829 Elevated white blood cell count, unspecified; E55.9 Vitamin D deficiency, unspecified; E87.6 Hypokalemia; F17.210 Nicotine dependence, cigarettes, uncomplicated; K21.9 Gastro-esophageal reflux disease without esophagitis; F41.9 Anxiety disorder, unspecified; I10 Essential (primary) hypertension; Z79.899 Other long term (current) drug therapy; Z68.30 Body mass index [BMI] 30.0-30.9, adult; Z88.8 Allergy status to other drugs, medicaments and biological substances
CPT/HCPCS: 36415; 80048; 80053; 82040; 82728; 83540; 83550; 83605; 83735; 84100; 84145; 85018; 85025; 86850; 86900; 86923; 87040; 87806; 96365; J0610; J1750; G0475; J7050; P9016

== ENCOUNTER 2017-09-08 11:00 | Emergency (ER) | payer MEDICAID ==
[~2017-09-08] VITALS: Ht 157.5 cm; Wt 75.1 kg
[~2017-09-08 11:00] MED LIST changes: +ALPR0.25 PO
[2017-09-08 11:05] VITALS: BP 120/81
[2017-09-08] MEDS ORDERED: LORazepam 1MG TABLET ONE (11:25)
[2017-09-08] MEDS ORDERED: LORazepam 1MG TABLET PO ONE (11:30)
[2017-09-08] MEDS ORDERED: ALBUTEROL/IPRATROPIUM 2.5MG/0.5MG, 3 ML ONE (11:30)
[2017-09-08] MEDS: ALBUTEROL/IPRATROPIUM 2.5MG/0.5MG, 3 ML NPPB SCH ×2 (11:40→11:41)
== END 2017-09-08 12:40 | disposition home or self-care (01) ==
LOC: ED 12:15
DX: J45.41 Moderate persistent asthma with (acute) exacerbation (principal); F17.200 Nicotine dependence, unspecified, uncomplicated; I10 Essential (primary) hypertension
CPT/HCPCS: 71046; 93005; 94640; 99284; J7512; J7620

== ENCOUNTER 2017-09-22 08:08 | Inpatient (IN) | payer MEDICAID ==
[~2017-09-22] VITALS: Ht 157.5 cm; Wt 68.0 kg
[2017-09-22] VITALS (12 sets, daily range): BP systolic 114–136; BP diastolic 76–94
[2017-09-22 09:07] LABS: BASOPHILS # (AUTO) 0.02 x10^3/uL (0-0.1); BASOPHILS % (AUTO) 0 % (0-1); EOSINOPHILS # (AUTO) 0.14 x10^3/uL (0-0.4); EOSINOPHILS % (AUTO) 2 % (1-7); LYMPHOCYTES # (AUTO) 1.64 x10^3/uL (1-3.4); LYMPHOCYTES % (AUTO) 19 % (22-44); MD NO; MEAN CORPUSCULAR HEMOGLOBIN 22.6 pg (27.0-34.8); MEAN PLATELET VOLUME 8.5 fL (7.4-10.4); MONOCYTES # (AUTO) 0.39 x10^3/uL (0.2-0.8); MONOCYTES % (AUTO) 4 % (2-9); NEUTROPHILS # (AUTO) 6.67 x10^3/uL (1.8-6.8); NEUTROPHILS % (AUTO) 75 % (42-75); PLATELET COUNT 358 x10^3/uL (130-400); RED BLOOD COUNT 3.24 x10^6/uL (3.82-5.3); RED CELL DISTRIBUTION WIDTH 16.1 % (9.6-15.2)
[2017-09-22 09:12] LABS: ALANINE AMINOTRANSFERASE 25 U/L (12-78); ALBUMIN 2.7 g/dL (3.4-5.0); ANION GAP 7 mmol/L (5-15); CALCIUM 7.9 mg/dL (8.5-10.1); CHLORIDE 105 mmol/L (98-107); CREATININE 0.79 mg/dL (0.55-1.02)
[2017-09-22 09:15] LABS: ALKALINE PHOSPHATASE 78 U/L (45-117); BILIRUBIN,TOTAL 0.2 mg/dL (0.2-1.0); TOTAL PROTEIN 6.8 g/dL (6.4-8.2)
[2017-09-22] MEDS ORDERED: LIDOCAINE 2%, 20ML SQ ONE (10:00)
[2017-09-22] MEDS ORDERED: LIDOCAINE-MPF 2%, 2ML ONE ×2 (10:06)
[2017-09-22] MEDS ORDERED: CLINDAMYCIN PMX 600MG/50ML 50 ML ONE (10:27)
[2017-09-22] MEDS ORDERED: PANTOPRAZOLE 40 MG IV ONE (10:27)
[2017-09-22] MEDS ORDERED: PANTOPRAZOLE 40 MG IV IVPush ONE (10:30)
[2017-09-22] MEDS ORDERED: CLINDAMYCIN PMX 600MG/50ML 50 ML IV ONE (10:30)
[2017-09-22] MEDS ORDERED: SODIUM CHLORIDE FLUSH 10ML SYR IVF ONE (10:30)
[2017-09-22] MEDS: PANTOPRAZOLE 80 MG in SODIUM CHLORIDE 0.9% 100 ML IV SCH ×2 (11:07→20:05)
[2017-09-22] MEDS ORDERED: ALPR1TAB2 PO (11:16)
[2017-09-22] MEDS ORDERED: SODIUM CHLORIDE FLUSH 10ML SYR IVF PRN (11:30)
[2017-09-22] MEDS ORDERED: SODIUM CHLORIDE 0.9% 1,000 ML IV SCH (11:48)
[2017-09-22] MEDS ORDERED: LORazepam 2 MG/ML, 1ML IVPush PRN (12:00)
[2017-09-22] MEDS ORDERED: ACETAMINOPHEN 325 MG TABLET PO PRN (12:00)
[2017-09-22] MEDS ORDERED: ONDANSETRON 2MG/ML, 2ML IVPush PRN (12:00)
[2017-09-22] MEDS: AMPICILLIN/SULBACTAM 3 GM in SODIUM CHLORIDE 0.9% 100 ML IV SCH ×2 (16:12→21:35)
[2017-09-22] MEDS: NICOTINE 14MG/24 HR PATCH.TD24 TD SCH (20:43)
[2017-09-22] MEDS: DOXYCYCLINE 100MG CAP PO SCH (21:35)
[2017-09-23 01:11] VITALS: BP 122/84
[2017-09-23] MEDS: AMPICILLIN/SULBACTAM 3 GM in SODIUM CHLORIDE 0.9% 100 ML IV SCH ×4 (04:14→22:11)
[2017-09-23 05:28] LABS: MEAN CORPUSCULAR HEMOGLOBIN 23.9 pg (27.0-34.8); MEAN CORPUSCULAR HGB CONC 31.5 g/dL (32.4-35.8); MEAN CORPUSCULAR VOLUME 75.9 fL (80-100); MEAN PLATELET VOLUME 9.1 fL (7.4-10.4); PLATELET COUNT 344 x10^3/uL (130-400); RED BLOOD COUNT 3.94 x10^6/uL (3.82-5.3); RED CELL DISTRIBUTION WIDTH 16.9 % (9.6-15.2)
[2017-09-23 05:30] LABS: ANION GAP 8 mmol/L (5-15); CHLORIDE 108 mmol/L (98-107); CREATININE 0.79 mg/dL (0.55-1.02)
[2017-09-23 06:00] LABS: BASOPHILS # (AUTO) 0.01 x10^3/uL (0-0.1); BASOPHILS % (AUTO) 0 % (0-1); EOSINOPHILS % (AUTO) 3 % (1-7); LYMPHOCYTES # (AUTO) 2.06 x10^3/uL (1-3.4); LYMPHOCYTES % (AUTO) 26 % (22-44); MD SCAN; MONOCYTES # (AUTO) 0.62 x10^3/uL (0.2-0.8); MONOCYTES % (AUTO) 8 % (2-9); NEUTROPHILS # (AUTO) 5.18 x10^3/uL (1.8-6.8); NEUTROPHILS % (AUTO) 64 % (42-75)
[2017-09-23] MEDS ORDERED: METHADONE 10 MG TABLET PO ONE (06:00)
[2017-09-23 07:33] VITALS: BP 116/82
[2017-09-23] MEDS: DOXYCYCLINE 100MG CAP PO SCH ×2 (09:03→22:10)
[2017-09-23] MEDS: NICOTINE 14MG/24 HR PATCH.TD24 TD SCH (12:00)
[2017-09-23 13:42] VITALS: BP 128/87
[2017-09-23 20:20] VITALS: BP 126/86
[2017-09-24 02:06] VITALS: BP 124/83
[2017-09-24] MEDS: AMPICILLIN/SULBACTAM 3 GM in SODIUM CHLORIDE 0.9% 100 ML IV SCH ×2 (04:19→09:53)
[2017-09-24] MEDS ORDERED: METHADONE 10 MG TABLET PO SCH (06:30)
[2017-09-24 07:44] VITALS: BP 123/93
[2017-09-24] MEDS: DOXYCYCLINE 100MG CAP PO SCH (08:43)
[2017-09-24 08:44] LABS: BASOPHILS # (AUTO) 0.01 x10^3/uL (0-0.1); BASOPHILS % (AUTO) 0 % (0-1); EOSINOPHILS # (AUTO) 0.26 x10^3/uL (0-0.4); EOSINOPHILS % (AUTO) 3 % (1-7); LYMPHOCYTES % (AUTO) 16 % (22-44); MD NO; MEAN CORPUSCULAR HEMOGLOBIN 23.7 pg (27.0-34.8); MEAN CORPUSCULAR HGB CONC 31.2 g/dL (32.4-35.8); MEAN CORPUSCULAR VOLUME 76.1 fL (80-100); MEAN PLATELET VOLUME 8.6 fL (7.4-10.4); MONOCYTES # (AUTO) 0.28 x10^3/uL (0.2-0.8); MONOCYTES % (AUTO) 3 % (2-9); NEUTROPHILS # (AUTO) 7.18 x10^3/uL (1.8-6.8); NEUTROPHILS % (AUTO) 78 % (42-75); PLATELET COUNT 356 x10^3/uL (130-400); RED BLOOD COUNT 4.38 x10^6/uL (3.82-5.3); RED CELL DISTRIBUTION WIDTH 16.9 % (9.6-15.2)
[2017-09-24 08:55] LABS: ANION GAP 7 mmol/L (5-15); CALCIUM 7.9 mg/dL (8.5-10.1); CHLORIDE 105 mmol/L (98-107); CREATININE 0.85 mg/dL (0.55-1.02)
[2017-09-24] MEDS ORDERED: DOXY100C2 PO (10:01)
[2017-09-24] MEDS ORDERED: AMOX1TAB64 PO (10:01)
[2017-09-24 10:27] VITALS: BP 123/93
[2017-09-24] MEDS: NICOTINE 14MG/24 HR PATCH.TD24 TD SCH (11:30)
[2017-09-24 12:42] VITALS: BP 149/64
== END 2017-09-24 13:00 | disposition home or self-care (01) | DRG 580 ==
LOC: ED 09:13 → EDIP 11:15 → 4NOR 12:41 → DCLOUNGE 09-24 12:50
PROVIDERS: ADMIT Internal Medicine; ATTEND Internal Medicine
PROC: 0J990ZZ Drainage of Buttock Subcutaneous Tissue and Fascia, Open Approach (ICD-10-PCS; principal; 2017-09-22)
PROC: 30233N1 Transfusion of Nonautologous Red Blood Cells into Peripheral Vein, Percutaneous Approach (ICD-10-PCS; 2017-09-22)
DX: L02.31 Cutaneous abscess of buttock (principal); L03.116 Cellulitis of left lower limb; D62 Acute posthemorrhagic anemia; K92.2 Gastrointestinal hemorrhage, unspecified; E44.0 Moderate protein-calorie malnutrition; F11.10 Opioid abuse, uncomplicated; I10 Essential (primary) hypertension; F15.90 Other stimulant use, unspecified, uncomplicated; M70.42 Prepatellar bursitis, left knee; F17.210 Nicotine dependence, cigarettes, uncomplicated; R73.9 Hyperglycemia, unspecified; B95.62 Methicillin resistant Staphylococcus aureus infection as the cause of diseases classified elsewhere; E66.01 Morbid (severe) obesity due to excess calories; Z87.11 Personal history of peptic ulcer disease; Z90.710 Acquired absence of both cervix and uterus; Z90.49 Acquired absence of other specified parts of digestive tract; Z91.19 Patient's noncompliance with other medical treatment and regimen; Z68.27 Body mass index [BMI] 27.0-27.9, adult; Z88.8 Allergy status to other drugs, medicaments and biological substances
CPT/HCPCS: 36415; 80048; 80053; 84702; 85025; 86850; 86900; 86923; 87070; 87077; 87186; 87205; 96365; 96375; 99285; J0295; J3490; C9113; J2060; P9016

== ENCOUNTER → 2017-10-01 | Outpatient (CLI) | payer MEDICAID ==
[~2017-10-01] MED LIST changes: +ALPR1TAB2 PO; +AMOX1TAB64 PO; +DOXY100C2 PO
== END | disposition home or self-care (01) ==
LOC: WOUND 12:47
PROVIDERS: ATTEND Internal Medicine
DX: L02.31 Cutaneous abscess of buttock (principal); J45.41 Moderate persistent asthma with (acute) exacerbation; F11.90 Opioid use, unspecified, uncomplicated; F17.210 Nicotine dependence, cigarettes, uncomplicated; F15.10 Other stimulant abuse, uncomplicated; I10 Essential (primary) hypertension; Z90.710 Acquired absence of both cervix and uterus; Z90.49 Acquired absence of other specified parts of digestive tract; Z88.8 Allergy status to other drugs, medicaments and biological substances
CPT/HCPCS: 99215

== ENCOUNTER 2017-11-11 16:19 | Emergency (ER) | payer MEDICAID ==
[~2017-11-11] VITALS: Ht 157.5 cm; Wt 73.0 kg
[2017-11-11] MEDS ORDERED: DIPHENHYDRAMINE 25 MG CAPSULE PO ONE (17:00)
[2017-11-11] MEDS ORDERED: DIPHENHYDRAMINE 25 MG CAPSULE ONE (17:02)
[2017-11-11 17:39] VITALS: BP 123/91
== END 2017-11-11 18:07 | disposition home or self-care (01) ==
LOC: ED 18:01
DX: S01.01XA Laceration without foreign body of scalp, initial encounter (principal); Y04.0XXA Assault by unarmed brawl or fight, initial encounter; I10 Essential (primary) hypertension; G43.909 Migraine, unspecified, not intractable, without status migrainosus; J45.909 Unspecified asthma, uncomplicated; Z90.89 Acquired absence of other organs; Z90.710 Acquired absence of both cervix and uterus; Y93.89 Activity, other specified; Y92.098 Other place in other non-institutional residence as the place of occurrence of the external cause; Y99.8 Other external cause status
CPT/HCPCS: 12001; 99283; Q0163

== ENCOUNTER 2017-11-27 12:40 | Inpatient (IN) | payer MEDICAID ==
[2017-11-27] VITALS (8 sets, daily range): BP systolic 108–125; BP diastolic 72–80
[~2017-11-27] VITALS: Ht 157.5 cm; Wt 77.0 kg
[2017-11-27] MEDS ORDERED: CLON0.5T20 PO (13:12)
[2017-11-27 14:09] LABS: ALANINE AMINOTRANSFERASE 18 U/L (12-78); ANION GAP 8 mmol/L (5-15); CHLORIDE 105 mmol/L (98-107); CREATININE 0.72 mg/dL (0.55-1.02)
[2017-11-27 14:13] LABS: ALKALINE PHOSPHATASE 75 U/L (45-117); BILIRUBIN,TOTAL 0.2 mg/dL (0.2-1.0); TOTAL PROTEIN 6.7 g/dL (6.4-8.2); TROPONIN I < 0.015 ng/mL (0.000-0.045)
[2017-11-27 14:27] LABS: MEAN CORPUSCULAR HEMOGLOBIN 18.5 pg (27.0-34.8); MEAN CORPUSCULAR VOLUME 62.9 fL (80-100); MEAN PLATELET VOLUME 10.2 fL (7.4-10.4); PLATELET COUNT 307 x10^3/uL (130-400); RED BLOOD COUNT 3.15 x10^6/uL (3.82-5.3)
[2017-11-27 14:33] LABS: MD YES; MEAN CORPUSCULAR HGB CONC 29.5 g/dL (32.4-35.8)
[2017-11-27 15:01] LABS: BASOS#(MANUAL) 0.07 x10^3/uL (0-0.1); BASOS% (MANUAL) 1 % (0-1); EOS#(MANUAL) 0.07 x10^3/uL (0.0-0.4); EOS% (MANUAL) 1 % (1-7); LYMPH#(MANUAL) 1.85 x10^3/uL (1-3.4); LYMPHS% (MANUAL) 26 % (22-44); MONOS#(MANUAL) 0.21 x10^3/uL (0.3-2.7); MONOS% (MANUAL) 3 % (2-9); SEGS% (MANUAL) 69 % (42-75)
[2017-11-27 15:02] LABS: ANISOCYTOSIS 2+; MICROCYTOSIS 2+
[2017-11-27 15:03] LABS: HYPOCHROMIA 2+; OVALOCYTES 1+; POLYCHROMASIA 1+
[2017-11-27 15:04] LABS: <PLATELET ESTIMATE> ADEQUATE; LARGE PLATELETS 1+
[2017-11-27] MEDS ORDERED: ONDANSETRON 2MG/ML, 2ML IVPush PRN (15:30)
[2017-11-27] MEDS ORDERED: NICOTINE 14MG/24 HR PATCH.TD24 TD SCH (15:30)
[2017-11-27] MEDS ORDERED: ONDANSETRON ODT 4 MG PO PRN (15:30)
[2017-11-27] MEDS ORDERED: ENALAPRILAT 1.25 MG/ML, 2ML IVPush PRN (15:30)
[2017-11-27] MEDS ORDERED: ACETAMINOPHEN 325 MG TABLET PO PRN (15:30)
[2017-11-27] MEDS ORDERED: FERROUS SULFATE 325 MG TABLET PO SCH (17:00)
[2017-11-28 02:00] VITALS: BP 120/73
[2017-11-28 05:22] LABS: MEAN CORPUSCULAR HEMOGLOBIN 19.7 pg (27.0-34.8); MEAN CORPUSCULAR HGB CONC 30.1 g/dL (32.4-35.8); MEAN CORPUSCULAR VOLUME 65.7 fL (80-100); MEAN PLATELET VOLUME 9.8 fL (7.4-10.4); PLATELET COUNT 279 x10^3/uL (130-400); RED BLOOD COUNT 3.48 x10^6/uL (3.82-5.3); RED CELL DISTRIBUTION WIDTH 22.1 % (9.6-15.2)
[2017-11-28 05:31] LABS: CHLORIDE 104 mmol/L (98-107)
[2017-11-28 05:36] LABS: ANION GAP 7 mmol/L (5-15); CALCIUM 8.6 mg/dL (8.5-10.1); CREATININE 0.76 mg/dL (0.55-1.02)
[2017-11-28 05:39] LABS: MD YES
[2017-11-28 05:41] LABS: BASOS#(MANUAL) 0.08 x10^3/uL (0-0.1); BASOS% (MANUAL) 1 % (0-1); EOS#(MANUAL) 0.24 x10^3/uL (0.0-0.4); EOS% (MANUAL) 3 % (1-7); LYMPH#(MANUAL) 2.37 x10^3/uL (1-3.4); LYMPHS% (MANUAL) 30 % (22-44); MONOS#(MANUAL) 0.32 x10^3/uL (0.3-2.7); MONOS% (MANUAL) 4 % (2-9); SEGS% (MANUAL) 62 % (42-75)
[2017-11-28 05:42] LABS: <PLATELET ESTIMATE> ADEQUATE; ANISOCYTOSIS 2+; HYPOCHROMIA 2+; LARGE PLATELETS 1+; MICROCYTOSIS 2+; OVALOCYTES 1+; POLYCHROMASIA 1+
[2017-11-28 07:27] VITALS: BP 115/76
[2017-11-28] MEDS ORDERED: METHADONE 10 MG TABLET PO SCH (09:00)
== END 2017-11-28 08:10 | disposition left against medical advice (07) | DRG 812 ==
LOC: ED 13:02 → EDIP 14:41 → 4EST 16:17
PROVIDERS: ADMIT Internal Medicine; ATTEND Internal Medicine
PROC: 30233N1 Transfusion of Nonautologous Red Blood Cells into Peripheral Vein, Percutaneous Approach (ICD-10-PCS; principal; 2017-11-27)
DX: D50.9 Iron deficiency anemia, unspecified (principal); F13.20 Sedative, hypnotic or anxiolytic dependence, uncomplicated; F19.20 Other psychoactive substance dependence, uncomplicated; F11.90 Opioid use, unspecified, uncomplicated; I10 Essential (primary) hypertension; J45.909 Unspecified asthma, uncomplicated; K44.9 Diaphragmatic hernia without obstruction or gangrene; G43.909 Migraine, unspecified, not intractable, without status migrainosus; F17.210 Nicotine dependence, cigarettes, uncomplicated; R00.0 Tachycardia, unspecified; F41.9 Anxiety disorder, unspecified; Z71.6 Tobacco abuse counseling; Z90.710 Acquired absence of both cervix and uterus; Z90.49 Acquired absence of other specified parts of digestive tract; Z91.19 Patient's noncompliance with other medical treatment and regimen; Z82.49 Family history of ischemic heart disease and other diseases of the circulatory system
CPT/HCPCS: 36415; 71045; 80048; 80053; 83880; 84484; 85014; 85018; 85025; 86850; 86900; 86923; 93005; 99285; G0378; P9016

== ENCOUNTER 2017-12-01 16:44 | Emergency (ER) | payer MEDICAID ==
[~2017-12-01] VITALS: Ht 157.5 cm; Wt 76.0 kg
[~2017-12-01 16:44] MED LIST changes: +CLON0.5T20 PO
[2017-12-01 17:51] LABS: MEAN CORPUSCULAR HEMOGLOBIN 19.4 pg (27.0-34.8); MEAN CORPUSCULAR VOLUME 65.7 fL (80-100); MEAN PLATELET VOLUME 8.8 fL (7.4-10.4); PLATELET COUNT 263 x10^3/uL (130-400); RED BLOOD COUNT 3.61 x10^6/uL (3.82-5.3); RED CELL DISTRIBUTION WIDTH 23.1 % (9.6-15.2)
[2017-12-01 17:56] LABS: ALBUMIN 3.5 g/dL (3.4-5.0); ANION GAP 11 mmol/L (5-15); CALCIUM 8.4 mg/dL (8.5-10.1); CHLORIDE 108 mmol/L (98-107)
[2017-12-01 18:07] LABS: MD YES
[2017-12-01 18:09] LABS: EOS#(MANUAL) 0.29 x10^3/uL (0.0-0.4); EOS% (MANUAL) 3 % (1-7); LYMPH#(MANUAL) 2.25 x10^3/uL (1-3.4); LYMPHS% (MANUAL) 23 % (22-44); SEG#(MANUAL) 6.76 x10^3/uL (1.8-6.8); SEGS% (MANUAL) 69 % (42-75)
[2017-12-01 18:10] LABS: <PLATELET ESTIMATE> ADEQUATE; ANISOCYTOSIS 2+; BASOS% (MANUAL) 2 % (0-1); HYPOCHROMIA 2+; MICROCYTOSIS 2+; MONOS#(MANUAL) 0.29 x10^3/uL (0.3-2.7); MONOS% (MANUAL) 3 % (2-9); OVALOCYTES 1+; POLYCHROMASIA 1+
[2017-12-01 18:11] LABS: LARGE PLATELETS 1+
[2017-12-01 18:14] LABS: MEAN CORPUSCULAR HGB CONC 29.6 g/dL (32.4-35.8)
[2017-12-01 18:36] VITALS: BP 114/61
[2017-12-01 18:52] VITALS: BP 105/66
[2017-12-01 19:52] VITALS: BP 97/65
[2017-12-01 20:26] VITALS: BP 108/65
== END 2017-12-01 20:55 | disposition home or self-care (01) ==
LOC: ED 20:49
DX: D50.8 Other iron deficiency anemias (principal); I10 Essential (primary) hypertension; G43.909 Migraine, unspecified, not intractable, without status migrainosus
CPT/HCPCS: 36415; 36430; 80048; 82040; 85025; 86850; 86900; 86923; 99285; P9016

== ENCOUNTER 2017-12-19 11:43 | Inpatient (IN) | payer MEDICAID ==
[~2017-12-19] VITALS: Ht 157.5 cm; Wt 79.8 kg
[2017-12-19 12:00] VITALS: BP 110/71
[2017-12-19 12:48] LABS: ALBUMIN 3.2 g/dL (3.4-5.0); ANION GAP 5 mmol/L (5-15); CALCIUM 7.9 mg/dL (8.5-10.1); CHLORIDE 106 mmol/L (98-107); CREATININE 0.85 mg/dL (0.55-1.02)
[2017-12-19 12:52] LABS: TROPONIN I < 0.015 ng/mL (0.000-0.045)
[2017-12-19 12:54] LABS: MEAN CORPUSCULAR HEMOGLOBIN 19.9 pg (27.0-34.8); MEAN CORPUSCULAR HGB CONC 29.9 g/dL (32.4-35.8); MEAN CORPUSCULAR VOLUME 66.4 fL (80-100); MEAN PLATELET VOLUME 9.4 fL (7.4-10.4); PLATELET COUNT 471 x10^3/uL (130-400); RED BLOOD COUNT 3.34 x10^6/uL (3.82-5.3); RED CELL DISTRIBUTION WIDTH 26.5 % (9.6-15.2)
[2017-12-19 13:02] LABS: MD YES
[2017-12-19 13:21] LABS: BAND#(MANUAL) 0.12 x10^3/uL; BANDS%(MANUAL) 1 % (0-7); EOS#(MANUAL) 0.23 x10^3/uL (0.0-0.4); EOS% (MANUAL) 2 % (1-7); LYMPH#(MANUAL) 2.42 x10^3/uL (1-3.4); LYMPHS% (MANUAL) 21 % (22-44); MONOS#(MANUAL) 0.46 x10^3/uL (0.3-2.7); MONOS% (MANUAL) 4 % (2-9); SEG#(MANUAL) 8.28 x10^3/uL (1.8-6.8); SEGS% (MANUAL) 72 % (42-75)
[2017-12-19 13:22] LABS: <PLATELET ESTIMATE> INCREASED; LARGE PLATELETS 1+
[2017-12-19 13:26] LABS: ANISOCYTOSIS 2+; HYPOCHROMIA 2+; MICROCYTOSIS 2+; POLYCHROMASIA 2+; SPHEROCYTES 1+
[2017-12-19] MEDS ORDERED: ONDANSETRON ODT 4 MG PO PRN (15:00)
[2017-12-19] MEDS ORDERED: ACETAMINOPHEN 325 MG TABLET PO PRN (15:00)
[2017-12-19 16:12] VITALS: BP 126/76
[2017-12-19 16:27] VITALS: BP 115/81
[2017-12-19 16:47] VITALS: BP 118/83
[2017-12-19 18:14] VITALS: BP 122/81
[2017-12-19] MEDS: LORazepam 1MG TABLET PO PRN (18:30)
[2017-12-19 20:00] VITALS: BP 120/82
[2017-12-19 20:46] LABS: AMPHETAMINE SCREEN, URINE Positive (Negative); BARBITURATE SCREEN, URINE Negative (Negative); BENZODIAZEPINE SCREEN, URINE Positive (Negative); CANNABINOID SCREEN, URINE Negative (Negative); COCAINE SCREEN, URINE Negative (Negative); METHADONE SCREEN, URINE Positive (Negative); OPIATE SCREEN, URINE Negative (Negative)
[2017-12-19] MEDS: PANTOPROZOLE 40MG TABLET PO SCH (21:42)
[2017-12-19] MEDS: NICOTINE 7 MG/24 HR PATCH.TD24 TD SCH (21:46)
[2017-12-20 02:00] VITALS: BP 101/65
[2017-12-20] MEDS: LORazepam 1MG TABLET PO PRN ×3 (04:23→20:33)
[2017-12-20 05:34] LABS: MEAN CORPUSCULAR HEMOGLOBIN 21.2 pg (27.0-34.8); MEAN CORPUSCULAR HGB CONC 30.6 g/dL (32.4-35.8); MEAN CORPUSCULAR VOLUME 69.4 fL (80-100); MEAN PLATELET VOLUME 9.2 fL (7.4-10.4); PLATELET COUNT 392 x10^3/uL (130-400); RED BLOOD COUNT 3.41 x10^6/uL (3.82-5.3); RED CELL DISTRIBUTION WIDTH 27.4 % (9.6-15.2)
[2017-12-20 05:36] LABS: ANION GAP 6 mmol/L (5-15); CALCIUM 8.1 mg/dL (8.5-10.1); CHLORIDE 107 mmol/L (98-107); CREATININE 0.88 mg/dL (0.55-1.02)
[2017-12-20 06:14] LABS: BASOPHILS # (AUTO) 0.05 x10^3/uL (0-0.1); BASOPHILS % (AUTO) 1 % (0-1); EOSINOPHILS # (AUTO) 0.31 x10^3/uL (0-0.4); EOSINOPHILS % (AUTO) 3 % (1-7); LYMPHOCYTES # (AUTO) 2.72 x10^3/uL (1-3.4); LYMPHOCYTES % (AUTO) 29 % (22-44); MD SCAN; MONOCYTES # (AUTO) 0.14 x10^3/uL (0.2-0.8); MONOCYTES % (AUTO) 2 % (2-9); NEUTROPHILS # (AUTO) 6.29 x10^3/uL (1.8-6.8); NEUTROPHILS % (AUTO) 66 % (42-75)
[2017-12-20 06:49] VITALS: BP 123/71
[2017-12-20] MEDS ORDERED: METHADONE 10 MG TABLET PO SCH (08:00)
[2017-12-20] MEDS: PANTOPROZOLE 40MG TABLET PO SCH ×2 (08:11→20:33)
[2017-12-20] MEDS: METHADONE 10 MG TABLET PO SCH (08:11)
[2017-12-20 10:45] LABS: OCCULT BLOOD POSITIVE (NEGATIVE)
[2017-12-20] MEDS: IRON SUCROSE COMPLEX 100MG/5ML IV SCH (12:20)
[2017-12-20 13:18] VITALS: BP 117/80
[2017-12-20 20:00] VITALS: BP 117/81
[2017-12-20] MEDS: NICOTINE 7 MG/24 HR PATCH.TD24 TD SCH (20:33)
[2017-12-21] VITALS (9 sets, daily range): BP systolic 114–136; BP diastolic 69–91
[2017-12-21] MEDS: LORazepam 1MG TABLET PO PRN ×2 (06:00→20:06)
[2017-12-21] MEDS ORDERED: METHADONE 5 MG TABLET ONE (06:05)
[2017-12-21 06:07] LABS: MEAN CORPUSCULAR HEMOGLOBIN 21.1 pg (27.0-34.8); MEAN CORPUSCULAR HGB CONC 30.2 g/dL (32.4-35.8); MEAN CORPUSCULAR VOLUME 69.8 fL (80-100); MEAN PLATELET VOLUME 9.4 fL (7.4-10.4); PLATELET COUNT 374 x10^3/uL (130-400); RED BLOOD COUNT 3.32 x10^6/uL (3.82-5.3); RED CELL DISTRIBUTION WIDTH 27.9 % (9.6-15.2)
[2017-12-21] MEDS: METHADONE 10 MG TABLET PO SCH (06:07)
[2017-12-21 06:29] LABS: MD YES
[2017-12-21 08:30] LABS: ANISOCYTOSIS 2+; LYMPHS% (MANUAL) 18 % (22-44); MICROCYTOSIS 2+; MONOS% (MANUAL) 2 % (2-9); SEGS% (MANUAL) 80 % (42-75)
[2017-12-21 08:31] LABS: HYPOCHROMIA 2+; TARGET CELLS 1+
[2017-12-21 08:32] LABS: <PLATELET ESTIMATE> ADEQUATE; <PLT MORPHOLOGY> NORMAL PLT MORPH; SPHEROCYTES 1+
[2017-12-21] MEDS: PANTOPROZOLE 40MG TABLET PO SCH ×2 (09:00→20:06)
[2017-12-21] MEDS: IRON SUCROSE COMPLEX 100MG/5ML IV SCH (13:15)
[2017-12-21] MEDS: NICOTINE 7 MG/24 HR PATCH.TD24 TD SCH (20:06)
[2017-12-22 00:02] VITALS: BP 126/87
[2017-12-22 05:15] LABS: ANION GAP 7 mmol/L (5-15); CALCIUM 8.6 mg/dL (8.5-10.1); CHLORIDE 101 mmol/L (98-107); CREATININE 0.76 mg/dL (0.55-1.02)
[2017-12-22 05:37] LABS: MEAN CORPUSCULAR HEMOGLOBIN 22.1 pg (27.0-34.8); MEAN CORPUSCULAR HGB CONC 30.8 g/dL (32.4-35.8); MEAN CORPUSCULAR VOLUME 71.8 fL (80-100); MEAN PLATELET VOLUME 9.7 fL (7.4-10.4); PLATELET COUNT 395 x10^3/uL (130-400); RED BLOOD COUNT 3.97 x10^6/uL (3.82-5.3); RED CELL DISTRIBUTION WIDTH 28.3 % (9.6-15.2)
[2017-12-22] MEDS: LORazepam 1MG TABLET PO PRN ×3 (06:00→21:31)
[2017-12-22] MEDS: METHADONE 10 MG TABLET PO SCH ×2 (06:00→09:37)
[2017-12-22 06:02] LABS: BASOPHILS # (AUTO) 0.06 x10^3/uL (0-0.1); BASOPHILS % (AUTO) 0 % (0-1); EOSINOPHILS # (AUTO) 0.56 x10^3/uL (0-0.4); EOSINOPHILS % (AUTO) 4 % (1-7); LYMPHOCYTES # (AUTO) 2.94 x10^3/uL (1-3.4); LYMPHOCYTES % (AUTO) 19 % (22-44); MD MORPH REVIEW ONLY; MONOCYTES # (AUTO) 1.07 x10^3/uL (0.2-0.8); MONOCYTES % (AUTO) 7 % (2-9); NEUTROPHILS # (AUTO) 10.52 x10^3/uL (1.8-6.8); NEUTROPHILS % (AUTO) 69 % (42-75)
[2017-12-22 06:48] LABS: <PLATELET ESTIMATE> ADEQUATE; <PLT MORPHOLOGY> NORMAL PLT MORPH; ANISOCYTOSIS 2+; HYPOCHROMIA 2+; MICROCYTOSIS 2+; OVALOCYTES 1+; SPHEROCYTES 2+; TARGET CELLS 1+
[2017-12-22 07:27] LABS: FOLATE LEVEL 11.4 ng/mL (3.1-17.5)
[2017-12-22 08:34] VITALS: BP 127/82
[2017-12-22] MEDS ORDERED: METHADONE 5 MG TABLET ONE (09:30)
[2017-12-22] MEDS: PANTOPROZOLE 40MG TABLET PO SCH ×2 (09:36→21:25)
[2017-12-22] MEDS: IRON SUCROSE COMPLEX 100MG/5ML IV SCH (09:36)
[2017-12-22 10:10] LABS: MICROSCOPIC NOT IND
[2017-12-22 14:22] VITALS: BP 140/96
[2017-12-22 18:26] VITALS: BP 122/84
[2017-12-22] MEDS: NICOTINE 7 MG/24 HR PATCH.TD24 TD SCH (21:25)
[2017-12-23 00:54] VITALS: BP 123/71
[2017-12-23] MEDS: METHADONE 10 MG TABLET PO SCH (05:31)
[2017-12-23 06:00] LABS: ALBUMIN 3.1 g/dL (3.4-5.0); ANION GAP 9 mmol/L (5-15); CALCIUM 8.5 mg/dL (8.5-10.1); CHLORIDE 100 mmol/L (98-107)
[2017-12-23 06:04] LABS: ALANINE AMINOTRANSFERASE 25 U/L (12-78); ALKALINE PHOSPHATASE 89 U/L (45-117); BILIRUBIN,TOTAL 0.3 mg/dL (0.2-1.0); CREATININE 0.75 mg/dL (0.55-1.02)
[2017-12-23 06:13] LABS: MEAN CORPUSCULAR HEMOGLOBIN 22.5 pg (27.0-34.8); MEAN CORPUSCULAR HGB CONC 31.4 g/dL (32.4-35.8); MEAN CORPUSCULAR VOLUME 71.4 fL (80-100); MEAN PLATELET VOLUME 10.7 fL (7.4-10.4); PLATELET COUNT 337 x10^3/uL (130-400); RED BLOOD COUNT 4.23 x10^6/uL (3.82-5.3); RED CELL DISTRIBUTION WIDTH 29.8 % (9.6-15.2)
[2017-12-23 06:14] LABS: MD YES
[2017-12-23] MEDS: LORazepam 1MG TABLET PO PRN ×3 (06:38→21:54)
[2017-12-23 07:03] LABS: ANISOCYTOSIS 2+; BANDS%(MANUAL) 2 % (0-7); BASOS% (MANUAL) 2 % (0-1); EOS#(MANUAL) 0.89 x10^3/uL (0.0-0.4); EOS% (MANUAL) 6 % (1-7); HYPOCHROMIA 2+; LYMPH#(MANUAL) 3.85 x10^3/uL (1-3.4); LYMPHS% (MANUAL) 26 % (22-44); METAMYELOCYTES% (MANUAL) 2 % (0-1); MICROCYTOSIS 2+; MONOS#(MANUAL) 0.59 x10^3/uL (0.3-2.7); MONOS% (MANUAL) 4 % (2-9); SEG#(MANUAL) 8.58 x10^3/uL (1.8-6.8); SEGS% (MANUAL) 58 % (42-75)
[2017-12-23 07:04] LABS: <PLATELET ESTIMATE> ADEQUATE; <PLT MORPHOLOGY> NORMAL PLT MORPH; SPHEROCYTES 1+; TARGET CELLS 1+
[2017-12-23 07:37] VITALS: BP 106/71
[2017-12-23] MEDS: PANTOPROZOLE 40MG TABLET PO SCH ×2 (10:04→21:53)
[2017-12-23] MEDS: IRON SUCROSE COMPLEX 100MG/5ML IV SCH (10:04)
[2017-12-23 13:50] VITALS: BP 109/74
[2017-12-23] MEDS ORDERED: GOLYTELY 4,000ML ORAL.SOL PO ONE (19:00)
[2017-12-23 19:01] VITALS: BP 115/83
[2017-12-23] MEDS: NICOTINE 7 MG/24 HR PATCH.TD24 TD SCH (21:54)
[2017-12-24 01:10] VITALS: BP 145/92
[2017-12-24 05:21] LABS: MEAN CORPUSCULAR HGB CONC 30.5 g/dL (32.4-35.8); MEAN CORPUSCULAR VOLUME 72.4 fL (80-100); MEAN PLATELET VOLUME 9.4 fL (7.4-10.4); PLATELET COUNT 342 x10^3/uL (130-400); RED BLOOD COUNT 4.26 x10^6/uL (3.82-5.3); RED CELL DISTRIBUTION WIDTH 31.3 % (9.6-15.2)
[2017-12-24] MEDS: METHADONE 10 MG TABLET PO SCH (05:35)
[2017-12-24 05:58] LABS: MD YES
[2017-12-24 06:02] LABS: <PLATELET ESTIMATE> ADEQUATE; ANISOCYTOSIS 2+; BAND#(MANUAL) 0.36 x10^3/uL; BANDS%(MANUAL) 3 % (0-7); EOS#(MANUAL) 0.12 x10^3/uL (0.0-0.4); EOS% (MANUAL) 1 % (1-7); HYPOCHROMIA 2+; LYMPH#(MANUAL) 2.02 x10^3/uL (1-3.4); LYMPHS% (MANUAL) 17 % (22-44); MICROCYTOSIS 2+; MONOS% (MANUAL) 5 % (2-9); SEG#(MANUAL) 8.81 x10^3/uL (1.8-6.8); SEGS% (MANUAL) 74 % (42-75)
[2017-12-24 06:03] LABS: GIANT PLATELETS 1+; LARGE PLATELETS 1+
[2017-12-24 06:05] LABS: BASOPHILLIC STIPPLING 1+
[2017-12-24 07:43] VITALS: BP 110/68
[2017-12-24] MEDS: PANTOPROZOLE 40MG TABLET PO SCH ×2 (08:44→20:37)
[2017-12-24] MEDS: IRON SUCROSE COMPLEX 100MG/5ML IV SCH (08:44)
[2017-12-24] MEDS: LORazepam 1MG TABLET PO PRN ×2 (08:45→20:42)
[2017-12-24] MEDS ORDERED: FENTANYL PF 250 MCG/5ML ONE (11:54)
[2017-12-24] MEDS ORDERED: MIDAZOLAM 1 MG/ML, 2ML ONE (11:54)
[2017-12-24] MEDS ORDERED: PROPOFOL 10 MG/ML, 20ML ONE (12:06)
[2017-12-24] MEDS ORDERED: SUCCINYLCHOLINE 20 MG/ML, 10ML ONE (12:06)
[2017-12-24] MEDS ORDERED: ONDANSETRON 2MG/ML, 2ML ONE (12:06)
[2017-12-24] MEDS ORDERED: DIPHENHYDRAMINE 50 MG/ML, 1ML IVPush PRN (13:00)
[2017-12-24] MEDS ORDERED: MEPERIDINE/PF 25MG/0.5ML IVPush PRN (13:00)
[2017-12-24] MEDS ORDERED: PROMETHAZINE 25 MG/ML, 1ML IV PRN (13:00)
[2017-12-24] MEDS ORDERED: OXYcodone 5 MG/5 ML ORAL.SOL UDC PO PRN (13:00)
[2017-12-24] MEDS ORDERED: ALBUTEROL/IPRATROPIUM 2.5MG/0.5MG, 3 ML NPPB PRN (13:00)
[2017-12-24] MEDS ORDERED: HYDROmorphone 1 MG/ML, 1ML IV PRN (13:00)
[2017-12-24] MEDS ORDERED: FENTANYL PF 100 MCG/2ML IV PRN (13:00)
[2017-12-24 14:00] VITALS: BP 110/68
[2017-12-24 19:42] VITALS: BP 116/74
[2017-12-24] MEDS: NICOTINE 7 MG/24 HR PATCH.TD24 TD SCH (20:37)
[2017-12-25 01:56] VITALS: BP 110/66
[2017-12-25 05:10] LABS: MEAN CORPUSCULAR HEMOGLOBIN 22.8 pg (27.0-34.8); MEAN CORPUSCULAR HGB CONC 31.1 g/dL (32.4-35.8); MEAN CORPUSCULAR VOLUME 73.2 fL (80-100); MEAN PLATELET VOLUME 9.9 fL (7.4-10.4); PLATELET COUNT 309 x10^3/uL (130-400); RED BLOOD COUNT 4.16 x10^6/uL (3.82-5.3)
[2017-12-25] MEDS: METHADONE 10 MG TABLET PO SCH (05:40)
[2017-12-25] MEDS: LORazepam 1MG TABLET PO PRN ×2 (05:42→09:27)
[2017-12-25 05:43] LABS: BASOPHILS % (AUTO) 0 % (0-1); EOSINOPHILS % (AUTO) 1 % (1-7); LYMPHOCYTES # (AUTO) 1.62 x10^3/uL (1-3.4); LYMPHOCYTES % (AUTO) 18 % (22-44); MD SCAN; MONOCYTES # (AUTO) 0.69 x10^3/uL (0.2-0.8); MONOCYTES % (AUTO) 8 % (2-9); NEUTROPHILS # (AUTO) 6.38 x10^3/uL (1.8-6.8); NEUTROPHILS % (AUTO) 73 % (42-75)
[2017-12-25 07:56] VITALS: BP 99/66
[2017-12-25] MEDS: PANTOPROZOLE 40MG TABLET PO SCH (09:28)
== END 2017-12-25 12:03 | disposition home or self-care (01) | DRG 394 ==
LOC: ED 12:08 → EDIP 12:55 → 3NE 13:28
PROVIDERS: ADMIT Hospitalist; ATTEND Family Medicine
PROC: 30233N1 Transfusion of Nonautologous Red Blood Cells into Peripheral Vein, Percutaneous Approach (ICD-10-PCS; 2017-12-19)
PROC: 0DJD8ZZ Inspection of Lower Intestinal Tract, Via Natural or Artificial Opening Endoscopic (ICD-10-PCS; 2017-12-24)
PROC: 0DB98ZX Excision of Duodenum, Via Natural or Artificial Opening Endoscopic, Diagnostic (ICD-10-PCS; principal; 2017-12-24 12:30)
DX: K64.8 Other hemorrhoids (principal); I82.611 Acute embolism and thrombosis of superficial veins of right upper extremity; D50.9 Iron deficiency anemia, unspecified; I10 Essential (primary) hypertension; F11.10 Opioid abuse, uncomplicated; D72.829 Elevated white blood cell count, unspecified; K44.9 Diaphragmatic hernia without obstruction or gangrene; Z72.0 Tobacco use; Z90.710 Acquired absence of both cervix and uterus; Z90.49 Acquired absence of other specified parts of digestive tract; F41.9 Anxiety disorder, unspecified; G43.909 Migraine, unspecified, not intractable, without status migrainosus; Z88.8 Allergy status to other drugs, medicaments and biological substances; Z79.899 Other long term (current) drug therapy
CPT/HCPCS: 36415; 71045; 80048; 80053; 80307; 81003; 82040; 82272; 82607; 82728; 82746; 83540; 83550; 83735; 83880; 84443; 84466; 84484; 85014; 85018; 85025; 86850; 86900; 86923; 88305; 93005; 99285; G0378; J1756; J2250; J2405; J2704; J3010; J0330; P9016

== ENCOUNTER 2018-02-05 11:25 | Emergency (ER) | payer MEDICAID ==
[2018-02-05] VITALS (9 sets, daily range): BP systolic 108–132; BP diastolic 64–87
[~2018-02-05] VITALS: Ht 157.5 cm; Wt 78.2 kg
[~2018-02-05 11:25] MED LIST changes: +METR-142 PO; -METR500T8 PO
--- NOTE | 2018-02-05 12:45 | NUR ---
PT ARRIVES TO ED WITH C/O OF NEEDING "BLOOD" PT REPORTS SHE GETS TRANSFUSION EVERY FEW MONTHS. PT HAS CHRONIC GI PROBLEMS THAT SHE HAS NOT FOLLOWED UP AT THIS TIME. PT IS PALE AND SOB AND HYPOXIC ON ARRIVAL. PT CONNECTED TO MONITORS AND PLACED ON SPO2. CALL LIGHT IN REACH, FALL TEACHING REVIEWED. AWAITING FURTHER ORDERS.
[2018-02-05 13:02] LABS: MEAN CORPUSCULAR HEMOGLOBIN 20.3 pg (27.0-34.8); MEAN CORPUSCULAR HGB CONC 30.2 g/dL (32.4-35.8); MEAN CORPUSCULAR VOLUME 67.2 fL (80-100); MEAN PLATELET VOLUME 8.7 fL (7.4-10.4); PLATELET COUNT 262 x10^3/uL (130-400); RED BLOOD COUNT 3.25 x10^6/uL (3.82-5.3); RED CELL DISTRIBUTION WIDTH 26.4 % (9.6-15.2)
[2018-02-05 13:03] LABS: INTERNATIONAL NORMALIZED RATIO 0.94 (0.93-1.1)
[2018-02-05 13:05] LABS: ALANINE AMINOTRANSFERASE 19 U/L (12-78); ALBUMIN 3.2 g/dL (3.4-5.0); ANION GAP 7 mmol/L (5-15); CALCIUM 8.2 mg/dL (8.5-10.1); CHLORIDE 105 mmol/L (98-107); CREATININE 0.82 mg/dL (0.55-1.02)
[2018-02-05 13:07] LABS: ALKALINE PHOSPHATASE 87 U/L (45-117); BILIRUBIN,TOTAL 0.2 mg/dL (0.2-1.0); TOTAL PROTEIN 6.9 g/dL (6.4-8.2)
[2018-02-05 13:17] LABS: MD YES
[2018-02-05 13:18] LABS: EOS% (MANUAL) 2 % (1-7); LYMPH#(MANUAL) 1.67 x10^3/uL (1-3.4); LYMPHS% (MANUAL) 17 % (22-44); MONOS#(MANUAL) 0.78 x10^3/uL (0.3-2.7); MONOS% (MANUAL) 8 % (2-9); SEG#(MANUAL) 7.15 x10^3/uL (1.8-6.8); SEGS% (MANUAL) 73 % (42-75)
[2018-02-05 13:20] LABS: ANISOCYTOSIS 2+; HYPOCHROMIA 2+; MICROCYTOSIS 2+; POLYCHROMASIA 1+
[2018-02-05 13:22] LABS: <PLATELET ESTIMATE> ADEQUATE; LARGE PLATELETS 1+
--- NOTE | 2018-02-05 14:16 | NUR ---
BLOOD INTIATED, TWO PIVS IN PLACE. NADN.
--- NOTE | 2018-02-05 14:53 | NUR ---
VITALS REMAIN STABLE AND NADN
--- NOTE | 2018-02-05 15:10 | NUR ---
PO FLUIDS PROVIDED FOR PATIENT.
--- NOTE | 2018-02-05 15:38 | NUR ---
First unit of Blood completed.
--- NOTE | 2018-02-05 15:49 | NUR ---
SECOND UNIT OF BLOOD STARTED.
--- NOTE | 2018-02-05 16:31 | NUR ---
PT GIVEN MEAL TRAY. TOLERATING TRANSFUSION WELL.
--- NOTE | 2018-02-05 16:58 | NUR ---
SECOND UNIT TOLERATED WELL, PT ABLE TO EAT MOST OF MEAL.
--- NOTE | 2018-02-05 17:23 | NUR ---
Patient/Caregiver given discharge instructions and they have confirmed that they understand the instructions. Patient ambulatory with steady gait.
== END 2018-02-05 17:24 | disposition home or self-care (01) ==
LOC: ED 11:50 → UNDOADMIN 13:19 → EDIP 13:19 → ED 17:24
DX: D50.0 Iron deficiency anemia secondary to blood loss (chronic) (principal); I10 Essential (primary) hypertension; Z90.49 Acquired absence of other specified parts of digestive tract; Z90.710 Acquired absence of both cervix and uterus
CPT/HCPCS: 36415; 36430; 71045; 80053; 85025; 85610; 85730; 86677; 86850; 86900; 86923; 93005; 99285; P9016

== ENCOUNTER 2018-02-23 19:09 | Emergency (ER) | payer MEDICAID ==
[~2018-02-23] VITALS: Ht 157.5 cm; Wt 77.0 kg
[~2018-02-23 19:09] MED LIST changes: -METH-356 PO; +METH10TA2 PO; -METR-142 PO; +METR-90 PO
[2018-02-23 19:15] VITALS: BP 125/83
== END 2018-02-23 19:45 | disposition home or self-care (01) ==
LOC: ED 19:39
DX: L02.414 Cutaneous abscess of left upper limb (principal); F17.200 Nicotine dependence, unspecified, uncomplicated
CPT/HCPCS: 99283

== ENCOUNTER 2018-04-15 15:16 | Inpatient (IN) | payer MEDICAID ==
[~2018-04-15] VITALS: Ht 157.5 cm; Wt 82.7 kg
[~2018-04-15 15:16] MED LIST changes: +PANT40TA3 PO
--- NOTE | 2018-04-15 15:44 | NUR ---
PT TO ED FOR SOB X4-5 DAYS. PT TO XRAY AT THIS TIME. AWAITING EDMD ASSESSMENT AND ORDERS.
[2018-04-15] MEDS ORDERED: ALBUTEROL/IPRATROPIUM 2.5MG/0.5MG, 3 ML ONE ×3 (15:46→21:55)
[2018-04-15] MEDS ORDERED: ALBUTEROL/IPRATROPIUM 2.5MG/0.5MG, 3 ML NPPB SCH (16:00)
--- NOTE | 2018-04-15 16:00 | NUR ---
pt back in room. connected to all monitors. placed on 2LNC for ra sat at 88%. sat recovered to 94%. all other vss. no needs at this time. call light within reach. no needs at this time. awaiting results at this time.
--- NOTE | 2018-04-15 16:24 | NUR ---
PT MEDICATED PER MAR. NO NEEDS AT THIS TIME. VSS. CALL LIGHT WITHIN REACH. AWAITING RESUTLS.
[2018-04-15 16:27] LABS: BASOPHILS # (AUTO) 0.02 x10^3/uL (0-0.1); BASOPHILS % (AUTO) 0 % (0-1); EOSINOPHILS # (AUTO) 0.47 x10^3/uL (0-0.4); EOSINOPHILS % (AUTO) 6 % (1-7); LYMPHOCYTES # (AUTO) 2.12 x10^3/uL (1-3.4); LYMPHOCYTES % (AUTO) 27 % (22-44); MD MORPH REVIEW ONLY; MEAN CORPUSCULAR HEMOGLOBIN 22.2 pg (27.0-34.8); MEAN CORPUSCULAR HGB CONC 30.2 g/dL (32.4-35.8); MEAN CORPUSCULAR VOLUME 73.4 fL (80-100); MEAN PLATELET VOLUME 9.1 fL (7.4-10.4); MONOCYTES # (AUTO) 0.49 x10^3/uL (0.2-0.8); MONOCYTES % (AUTO) 6 % (2-9); NEUTROPHILS # (AUTO) 4.74 x10^3/uL (1.8-6.8); NEUTROPHILS % (AUTO) 60 % (42-75); PLATELET COUNT 439 x10^3/uL (130-400); RED BLOOD COUNT 2.81 x10^6/uL (3.82-5.3); RED CELL DISTRIBUTION WIDTH 28.4 % (9.6-15.2)
[2018-04-15] MEDS ORDERED: ALBUTEROL/IPRATROPIUM 2.5MG/0.5MG, 3 ML NPPB ONE (16:30)
[2018-04-15 16:34] LABS: ALBUMIN 2.9 g/dL (3.4-5.0); ANION GAP 4 mmol/L (5-15); CALCIUM 7.8 mg/dL (8.5-10.1); CHLORIDE 107 mmol/L (98-107); CREATININE 0.79 mg/dL (0.55-1.02)
[2018-04-15 16:44] LABS: POLYCHROMASIA 1+
[2018-04-15 16:45] LABS: CRENATED 1+; HYPOCHROMIA 3+; OVALOCYTES 1+; TARGET CELLS 1+
[2018-04-15 16:46] LABS: <PLATELET ESTIMATE> ADEQUATE; <PLT MORPHOLOGY> NORMAL PLT MORPH
[2018-04-15] MEDS ORDERED: HEPARIN 5,000 UNITS/ML, 1ML SQ SCH (18:30)
[2018-04-15] MEDS ORDERED: ACETAMINOPHEN 325 MG TABLET PO PRN (18:30)
[2018-04-15] MEDS ORDERED: ONDANSETRON 2MG/ML, 2ML IVPush PRN (18:30)
[2018-04-15] MEDS ORDERED: ENALAPRILAT 1.25 MG/ML, 2ML IVPush PRN (18:30)
[2018-04-15 19:05] VITALS: BP 110/72
[2018-04-15 19:20] VITALS: BP 120/54
--- NOTE | 2018-04-15 19:45 | NUR ---
BREAK RN: BLOOD INFUSING. NO REACTION NOTED IN PT. VSS. BILAT BEDRAILS UP. PT REQUESTING FOOD. WILL VERIFY WITH ERP. CALL LIGHT WITHIN REACH.
--- NOTE | 2018-04-15 20:26 | NUR ---
pt given food
[2018-04-15 20:43] VITALS: BP 118/71
--- NOTE | 2018-04-15 20:44 | NUR ---
PT RESTING IN ROOM WATCHING TV. VSS. BLOOD INFUSING AT THIS TIME. NO NEEDS. CALL LIGHT WITHIN REACH.
[2018-04-15 21:50] VITALS: BP 112/67
--- NOTE | 2018-04-15 22:11 | NUR ---
ASSUMED CARE OF PT, BLOOD TRANSFUSION COMPLETED. PT WALKED TO RESTROOM. PT RESTING IN BED WITH GOOD APPETITE.
--- NOTE | 2018-04-15 22:54 | NUR ---
REPORT TO ERIKA ANAND
[2018-04-15 23:10] VITALS: BP 121/79
[2018-04-15] MEDS ORDERED: AZITHROMYCIN 500 MG in SODIUM CHLORIDE 0.9% 250 ML IV SCH (23:30)
[2018-04-16] VITALS (7 sets, daily range): BP systolic 98–133; BP diastolic 65–87
[2018-04-16 01:39] LABS: AMPHETAMINE SCREEN, URINE Positive (Negative); BARBITURATE SCREEN, URINE Negative (Negative); BENZODIAZEPINE SCREEN, URINE Positive (Negative); CANNABINOID SCREEN, URINE Negative (Negative); COCAINE SCREEN, URINE Negative (Negative); METHADONE SCREEN, URINE Positive (Negative); OPIATE SCREEN, URINE Positive (Negative)
[2018-04-16] MEDS ORDERED: METHADONE 10 MG TABLET PO SCH ×2 (06:00→09:00)
[2018-04-16] MEDS: methylPREDNISolone SOD SUCC 125 MG/2 ML IVPush SCH ×2 (06:01→12:00)
[2018-04-16] MEDS: FERROUS SULFATE 325 MG TABLET PO SCH ×2 (07:56→08:01)
[2018-04-16] MEDS: PANTOPROZOLE 40MG TABLET PO SCH ×2 (07:56→08:01)
[2018-04-16] MEDS: ALBUTEROL/IPRATROPIUM 2.5MG/0.5MG, 3 ML NPPB SCH ×3 (08:10→15:00)
[2018-04-16 09:04] LABS: MEAN CORPUSCULAR HEMOGLOBIN 22.7 pg (27.0-34.8); MEAN CORPUSCULAR VOLUME 75.6 fL (80-100); MEAN PLATELET VOLUME 9.8 fL (7.4-10.4); PLATELET COUNT 335 x10^3/uL (130-400); RED BLOOD COUNT 3.42 x10^6/uL (3.82-5.3)
[2018-04-16 09:07] LABS: ALANINE AMINOTRANSFERASE 22 U/L (12-78); ALBUMIN 2.9 g/dL (3.4-5.0); ANION GAP 5 mmol/L (5-15); CALCIUM 8.1 mg/dL (8.5-10.1); CHLORIDE 108 mmol/L (98-107); CREATININE 0.93 mg/dL (0.55-1.02)
[2018-04-16 09:10] LABS: ALKALINE PHOSPHATASE 84 U/L (45-117); BILIRUBIN,TOTAL 0.2 mg/dL (0.2-1.0); TOTAL PROTEIN 6.6 g/dL (6.4-8.2)
[2018-04-16 09:25] LABS: ANISOCYTOSIS 2+; BASOPHILS # (AUTO) 0.01 x10^3/uL (0-0.1); BASOPHILS % (AUTO) 0 % (0-1); EOSINOPHILS # (AUTO) 0.01 x10^3/uL (0-0.4); EOSINOPHILS % (AUTO) 0 % (1-7); LYMPHOCYTES % (AUTO) 7 % (22-44); MD MORPH REVIEW ONLY; MICROCYTOSIS 1+; MONOCYTES # (AUTO) 0.12 x10^3/uL (0.2-0.8); MONOCYTES % (AUTO) 1 % (2-9); NEUTROPHILS # (AUTO) 12.57 x10^3/uL (1.8-6.8); NEUTROPHILS % (AUTO) 92 % (42-75)
[2018-04-16 09:26] LABS: HYPOCHROMIA 2+; OVALOCYTES 1+; POLYCHROMASIA 1+; TARGET CELLS 1+
[2018-04-16 09:28] LABS: <PLATELET ESTIMATE> ADEQUATE; <PLT MORPHOLOGY> NORMAL PLT MORPH; TEAR DROPS 1+
[2018-04-16] MEDS ORDERED: AZIT500T PO (11:52)
[2018-04-16] MEDS ORDERED: FLUT1DIS3 INH (11:52)
[2018-04-16] MEDS ORDERED: GUAI1TBM11 PO (11:52)
[2018-04-16] MEDS ORDERED: IPRA3AMP30 NPPB (11:52)
[2018-04-16] MEDS ORDERED: PRED10TA PO (11:52)
== END 2018-04-16 16:48 | disposition home or self-care (01) | DRG 189 ==
LOC: SUATTDRO 17:37 → ED 17:46 → EDIP 17:47 → 4NOR 22:59
PROVIDERS: ADMIT Hospitalist; ATTEND Hospitalist
PROC: 30233N1 Transfusion of Nonautologous Red Blood Cells into Peripheral Vein, Percutaneous Approach (ICD-10-PCS; principal; 2018-04-15)
DX: J96.01 Acute respiratory failure with hypoxia (principal); J44.1 Chronic obstructive pulmonary disease with (acute) exacerbation; D50.0 Iron deficiency anemia secondary to blood loss (chronic); E66.9 Obesity, unspecified; F41.1 Generalized anxiety disorder; I10 Essential (primary) hypertension; K22.2 Esophageal obstruction; K44.9 Diaphragmatic hernia without obstruction or gangrene; Z68.33 Body mass index [BMI] 33.0-33.9, adult; Z82.49 Family history of ischemic heart disease and other diseases of the circulatory system; Z87.891 Personal history of nicotine dependence; Z90.710 Acquired absence of both cervix and uterus; Z88.8 Allergy status to other drugs, medicaments and biological substances; Z90.89 Acquired absence of other organs; Z90.49 Acquired absence of other specified parts of digestive tract
CPT/HCPCS: 36415; 99285; J7620; 71046; 80048; 80053; 80307; 82040; 83735; 83880; 84100; 85014; 85018; 85025; 86850; 86900; 86923; 93005; 93306; 94640; G0378; J0456; J2930; J7050; J7512; P9016

== ENCOUNTER 2018-06-05 10:54 | Emergency (ER) | payer MEDICAID ==
[~2018-06-05] VITALS: Ht 157.5 cm; Wt 78.6 kg
[2018-06-05] VITALS (11 sets, daily range): BP systolic 98–118; BP diastolic 54–77
[~2018-06-05 10:54] MED LIST changes: +AZIT500T PO; +FLUT1DIS3 INH; +GUAI1TBM11 PO; +IPRA3AMP30 NPPB; +PRED10TA PO
--- NOTE | 2018-06-05 11:15 | NUR ---
pt to ed for intermittent epigastric pain x1 hour. pt has hx of ulcers, gi bleeds and anemia. connected to monitors. vss. no needs at this time. awaiting edmd assessment.
--- NOTE | 2018-06-05 11:35 | NUR ---
edmd to bs for assessment.
[2018-06-05] MEDS ORDERED: ONDANSETRON 2MG/ML, 2ML IVPush ONE (12:00)
[2018-06-05] MEDS ORDERED: MORPHINE SULFATE 4 MG/ML, 1ML ONE ×2 (12:05→17:06)
[2018-06-05] MEDS ORDERED: ONDANSETRON 2MG/ML, 2ML ONE (12:05)
[2018-06-05] MEDS: MORPHINE SULFATE 4 MG/ML, 1ML IVPush PRN ×2 (12:21→17:09)
--- NOTE | 2018-06-05 12:24 | NUR ---
pt medicated per mar. vss. us at [facility].
[2018-06-05 12:30] LABS: INTERNATIONAL NORMALIZED RATIO 0.98 (0.93-1.1); PROTHROMBIN TIME 10.3 Seconds (9.6-11.5)
[2018-06-05 12:35] LABS: ANION GAP 4 mmol/L (5-15); CALCIUM 8.4 mg/dL (8.5-10.1); CHLORIDE 107 mmol/L (98-107)
[2018-06-05 12:38] LABS: CREATININE 0.91 mg/dL (0.55-1.02)
[2018-06-05 12:39] LABS: ALANINE AMINOTRANSFERASE 18 U/L (12-78); ALKALINE PHOSPHATASE 90 U/L (45-117); BILIRUBIN,TOTAL 0.4 mg/dL (0.2-1.0); TOTAL PROTEIN 6.7 g/dL (6.4-8.2)
[2018-06-05 12:47] LABS: MEAN CORPUSCULAR HEMOGLOBIN 17.8 pg (27.0-34.8); MEAN CORPUSCULAR VOLUME 61.1 fL (80-100); MEAN PLATELET VOLUME 8.9 fL (7.4-10.4); PLATELET COUNT 304 x10^3/uL (130-400); RED BLOOD COUNT 3.12 x10^6/uL (3.82-5.3); RED CELL DISTRIBUTION WIDTH 27.2 % (9.6-15.2)
[2018-06-05 12:48] LABS: MEAN CORPUSCULAR HGB CONC 29.1 g/dL (32.4-35.8)
--- NOTE | 2018-06-05 12:48 | NUR ---
critical h/h reported to edmd. pt resting in room. no needs requested. vss. call lit within reach.
[2018-06-05 12:57] LABS: MD YES
[2018-06-05] MEDS ORDERED: PANTOPRAZOLE 40 MG IV IVPush ONE (13:00)
[2018-06-05 13:05] LABS: BAND#(MANUAL) 0.07 x10^3/uL; BANDS%(MANUAL) 1 % (0-7); EOS#(MANUAL) 0.42 x10^3/uL (0.0-0.4); EOS% (MANUAL) 6 % (1-7); LYMPH#(MANUAL) 2.94 x10^3/uL (1-3.4); LYMPHS% (MANUAL) 42 % (22-44); MONOS#(MANUAL) 0.21 x10^3/uL (0.3-2.7); MONOS% (MANUAL) 3 % (2-9); SEG#(MANUAL) 3.36 x10^3/uL (1.8-6.8); SEGS% (MANUAL) 48 % (42-75)
[2018-06-05 13:06] LABS: ANISOCYTOSIS 2+
[2018-06-05 13:07] LABS: HYPOCHROMIA 3+; MICROCYTOSIS 1+
[2018-06-05 13:09] LABS: OVALOCYTES 1+; POLYCHROMASIA 1+; TARGET CELLS 1+
[2018-06-05 13:10] LABS: <PLATELET ESTIMATE> ADEQUATE
[2018-06-05 13:11] LABS: LARGE PLATELETS 1+
[2018-06-05] MEDS ORDERED: PANTOPRAZOLE 40 MG IV ONE (13:22)
--- NOTE | 2018-06-05 13:24 | NUR ---
RN NATIVIDAD IS ASSISTING THE PRIMARY CARE RN WITH THE PT.'S CARE. VITALS MONITORED. PT. IS RESTING WITHOUT CONCERNS. PULSE OX AND BP CUFF REMAIN IN PLACE. PT.'S HOB IS ELEVATED GREATER THAN 30 DEGREES. SIDERAILS REMAIN UP X 2 WITH THE CALL LIGHT IN PLACE.
--- NOTE | 2018-06-05 14:12 | NUR ---
PT RESTING IN ROOM. VSS. PT REQUESTING BREATHING TREATMENT. WILL NOTIFY EDMD. AWAITING BLOOD AT THIS TIME. CALL LIGHT WITHIN REACH.
--- NOTE | 2018-06-05 15:36 | NUR ---
bs report to jefferson renteria. blood verified with jefferson renteria and started.
--- NOTE | 2018-06-05 15:38 | NUR ---
BEDSIDE REPORT FROM CHENG SALTER. PT RESTING IN [facility] NOTED. FIRST UNIT PRB HUNG PER PROTOCOL W/ TWO RN SIGN OFF. PT EDUCATED ON S/S OF BLOOD TRANSFUSION REACTION AND AGREES TO NOTIFY RN IMMEDIATELY IN ANY OCCURE. BLOOD CONSENT SIGNED BY PT PRIOR TO RECEIVING TRANSFUSION BP/SPO2 MONITOR IN PLACE
--- NOTE | 2018-06-05 15:53 | NUR ---
BLOOD CONTINUES TO INFUSE. PT DENIES PAIN/WEAKNESS/DIZZINESS/NAUSEA/SOB. MILD WHEEZING UPON LUNG AUSCULTATION. NO S/S OF PULMONARY EDEMA NOTED. SPO2 >90% ON 2L BY NC. PT PROVIDED CRACKERS AND PO FLUIDS, OKAY PER ERP
--- NOTE | 2018-06-05 16:12 | NUR ---
PT CONTINUES TO DENY S/S OF TRANSFUSION RXN. VS REMAIN STABLE. LUNG THAO WITH DIFFUSE WHEEZING. NO S/S OF PULM EDEMA.
--- NOTE | 2018-06-05 17:03 | NUR ---
PT RESTING COMFORTABLY IN GURENY, NAD NOTED. TRANSFUSION ENDED. NO S/S OF TRANSFUSION RXN NOTED. SECOND UNIT REQUESTED FROM BB
--- NOTE | 2018-06-05 17:13 | NUR ---
PT MEDICATED PER EMAR FOR 9/10 ABD PAIN. AWAITING SECOND UNIT OF BLOOD
--- NOTE | 2018-06-05 17:20 | NUR ---
SECOND UNIT PRB HUNG. SECOND RN SIGN OFF BY CHENG VALDES.
--- NOTE | 2018-06-05 17:35 | NUR ---
SECOND UNIT TRANSFUSING. NO S/S OF TRANSFUSION RXN NOTED. LUNG THAO WITH DIFFUSE WHEEZING, OTHERWISE CLEAR. PT REPORTS IMPROVEMENT IN PAIN W MEDICATIONS.
--- NOTE | 2018-06-05 18:48 | NUR ---
PT RESTING IN GURNEY W/ EYES CLOSED, EASILY ARROUSABLE TO VOICE. PT PROVIDED CRACKERS/PO FLUIDS. PT SITTING UP EATING. PT CONTINUES TO DENY S/S OF TRANSFUSION RXN. DIFFUSE WHEEZING IN ALL LUNG THAO. NO EVIDENCE OF PULM EDEMA
--- NOTE | 2018-06-05 18:55 | NUR ---
REPORT TO CHENG KHAN
--- NOTE | 2018-06-05 19:54 | NUR ---
PT RESTING CALMLY IN BED. PT VSS. NO NOTED REACTION TO BLOOD PRODUCTS NOTED AT THIS TIME. IV REMOBED. WILL CONTINUE TO MONITOR.
--- NOTE | 2018-06-05 20:01 | NUR ---
PT SATING 85% ON RA. PT PLACED BACK ON 2L O2 PER N/C. WILL INFORM ERP. PT STATED SHE DOES NOT USE O2 T HOME.
== END 2018-06-05 20:55 | disposition home or self-care (01) ==
LOC: ED 16:52
DX: K26.4 Chronic or unspecified duodenal ulcer with hemorrhage (principal); J44.9 Chronic obstructive pulmonary disease, unspecified; I10 Essential (primary) hypertension; Z88.5 Allergy status to narcotic agent
CPT/HCPCS: 36415; 36430; 76700; 80053; 83690; 85025; 85610; 86850; 86900; 86923; 96374; 96375; 96376; 99285; C9113; J2405; P9016

== ENCOUNTER 2018-07-03 07:44 | Inpatient (IN) | payer MEDICAID ==
[~2018-07-03] VITALS: Ht 157.5 cm; Wt 80.4 kg
[2018-07-03] VITALS (9 sets, daily range): BP systolic 96–119; BP diastolic 62–80
--- NOTE | 2018-07-03 07:54 | NUR ---
Pt BIB EMS from methadone clinic for feeling weak. Pt states she has hx of duodenal ulcers and needs periodic transfusions with similar sx. Pt also states that she was sick last week with GI upset. Feels better but still feels dehydrated.
[2018-07-03] MEDS ORDERED: SODIUM CHLORIDE 0.9% 1,000ML IVBOLUS ONE (08:00)
[2018-07-03] MEDS ORDERED: FAMO-79 PO (08:01)
[2018-07-03 08:41] LABS: ALANINE AMINOTRANSFERASE 18 U/L (12-78); ANION GAP 7 mmol/L (5-15); CHLORIDE 106 mmol/L (98-107)
[2018-07-03 08:42] LABS: ALKALINE PHOSPHATASE 74 U/L (45-117); BILIRUBIN,TOTAL 0.2 mg/dL (0.2-1.0); CREATININE 0.79 mg/dL (0.55-1.02); TOTAL PROTEIN 6.4 g/dL (6.4-8.2)
[2018-07-03] MEDS ORDERED: SODIUM CHLORIDE FLUSH 10ML SYR IVF ONE (09:00)
[2018-07-03 10:44] LABS: MEAN CORPUSCULAR HEMOGLOBIN 18.8 pg (27.0-34.8); MEAN PLATELET VOLUME 8.9 fL (7.4-10.4); PLATELET COUNT 220 x10^3/uL (130-400); RED BLOOD COUNT 2.33 x10^6/uL (3.82-5.3); RED CELL DISTRIBUTION WIDTH 27.5 % (9.6-15.2)
[2018-07-03 10:46] LABS: MEAN CORPUSCULAR HGB CONC 28.9 g/dL (32.4-35.8)
[2018-07-03 10:56] LABS: MD YES
[2018-07-03] MEDS ORDERED: ALBUTEROL/IPRATROPIUM 2.5MG/0.5MG, 3 ML NPPB SCH (11:00)
[2018-07-03] MEDS ORDERED: ALBUTEROL/IPRATROPIUM 2.5MG/0.5MG, 3 ML ONE ×2 (11:03→11:04)
[2018-07-03 11:29] LABS: BASOS#(MANUAL) 0.07 x10^3/uL (0-0.1); BASOS% (MANUAL) 1 % (0-1); EOS#(MANUAL) 0.27 x10^3/uL (0.0-0.4); EOS% (MANUAL) 4 % (1-7); LYMPH#(MANUAL) 1.61 x10^3/uL (1-3.4); LYMPHS% (MANUAL) 24 % (22-44); MONOS#(MANUAL) 0.27 x10^3/uL (0.3-2.7); MONOS% (MANUAL) 4 % (2-9); NRBC % (MANUAL) 2 % (0-1); SEG#(MANUAL) 4.49 x10^3/uL (1.8-6.8); SEGS% (MANUAL) 67 % (42-75)
[2018-07-03 11:31] LABS: ANISOCYTOSIS 2+; OVALOCYTES 1+; POLYCHROMASIA 1+
[2018-07-03 11:32] LABS: <PLATELET ESTIMATE> ADEQUATE
[2018-07-03 11:34] LABS: HYPOCHROMIA 3+; LARGE PLATELETS 1+; TARGET CELLS 1+
[2018-07-03 11:35] LABS: MICROCYTOSIS 1+
[2018-07-03] MEDS ORDERED: ZOLPIDEM 5MG TABLET PO PRN (12:00)
[2018-07-03] MEDS ORDERED: ONDANSETRON 2MG/ML, 2ML IVPush PRN (12:00)
[2018-07-03] MEDS ORDERED: DOCUSATE 100 MG CAPSULE PO PRN (12:00)
--- NOTE | 2018-07-03 12:04 | NUR ---
TASK RN: PTS BLOOD INFUSING WITHOUT ISSUE, PT HAVING NO TRANSFUSION REACTION SYMPTOMS AT THIS TIME. PT GIVEN SNACKS.
--- NOTE | 2018-07-03 12:20 | NUR ---
SPOKE WITH HOSPITALIST REGARDING GETTING SOCIAL WORK AND CASE MANAGEMENT INVOLVED. AGREED AT THIS TIME FOR CONSULT.
[2018-07-03] MEDS ORDERED: MORPHINE SULFATE 4 MG/ML, 1ML ONE (12:24)
[2018-07-03] MEDS: morphine SULFATE 10 MG/ML, 1ML IVPush PRN ×2 (12:27→20:11)
--- NOTE | 2018-07-03 12:28 | NUR ---
TASK RN: PT MEDICATED FOR PAIN.
[2018-07-03] MEDS ORDERED: ESCI20TA10 PO (17:17)
[2018-07-03] MEDS ORDERED: PANTOPRAZOLE 40 MG IV IVPush ONE (17:30)
[2018-07-03] MEDS: PANTOPRAZOLE 40 MG IV IVPush SCH (18:07)
[2018-07-03 18:11] LABS: MEAN CORPUSCULAR HEMOGLOBIN 21.3 pg (27.0-34.8); MEAN CORPUSCULAR HGB CONC 30.1 g/dL (32.4-35.8); MEAN CORPUSCULAR VOLUME 70.8 fL (80-100); PLATELET COUNT 241 x10^3/uL (130-400); RED BLOOD COUNT 2.62 x10^6/uL (3.82-5.3); RED CELL DISTRIBUTION WIDTH 29.8 % (9.6-15.2)
[2018-07-03 18:13] LABS: HEMOGRAM NOTE RECHECKED
[2018-07-03 18:42] LABS: MD YES
[2018-07-03 18:49] LABS: BAND#(MANUAL) 0.06 x10^3/uL; BANDS%(MANUAL) 1 % (0-7); BASOS#(MANUAL) 0.06 x10^3/uL (0-0.1); BASOS% (MANUAL) 1 % (0-1); EOS#(MANUAL) 0.43 x10^3/uL (0.0-0.4); EOS% (MANUAL) 7 % (1-7); LYMPH#(MANUAL) 1.36 x10^3/uL (1-3.4); LYMPHS% (MANUAL) 22 % (22-44); MONOS#(MANUAL) 0.56 x10^3/uL (0.3-2.7); MONOS% (MANUAL) 9 % (2-9); NRBC % (MANUAL) 3 % (0-1); SEG#(MANUAL) 3.72 x10^3/uL (1.8-6.8); SEGS% (MANUAL) 60 % (42-75)
[2018-07-03 18:50] LABS: ANISOCYTOSIS 2+
[2018-07-03 18:51] LABS: HYPOCHROMIA 2+; OVALOCYTES 2+
[2018-07-03 18:52] LABS: MICROCYTOSIS 2+
[2018-07-03 18:53] LABS: <PLATELET ESTIMATE> ADEQUATE; LARGE PLATELETS 1+
[2018-07-03] MEDS: FERROUS SULFATE 325 MG TABLET PO SCH (20:10)
[2018-07-03] MEDS: ALBUTEROL/IPRATROPIUM 2.5MG/0.5MG, 3 ML NPPB PRN (20:31)
[2018-07-04] VITALS (9 sets, daily range): BP systolic 97–117; BP diastolic 55–76
[2018-07-04 00:01] LABS: MEAN CORPUSCULAR HEMOGLOBIN 22.2 pg (27.0-34.8); MEAN CORPUSCULAR VOLUME 74.1 fL (80-100); MEAN PLATELET VOLUME 9.2 fL (7.4-10.4); PLATELET COUNT 237 x10^3/uL (130-400); RED BLOOD COUNT 3.01 x10^6/uL (3.82-5.3); RED CELL DISTRIBUTION WIDTH 29.9 % (9.6-15.2)
[2018-07-04 00:33] LABS: BASOPHILS # (AUTO) 0.01 x10^3/uL (0-0.1); BASOPHILS % (AUTO) 0 % (0-1); EOSINOPHILS # (AUTO) 0.41 x10^3/uL (0-0.4); EOSINOPHILS % (AUTO) 6 % (1-7); LYMPHOCYTES % (AUTO) 28 % (22-44); MD MORPH REVIEW ONLY; MONOCYTES % (AUTO) 9 % (2-9); NEUTROPHILS # (AUTO) 3.58 x10^3/uL (1.8-6.8); NEUTROPHILS % (AUTO) 56 % (42-75)
[2018-07-04 00:34] LABS: ANISOCYTOSIS 2+; HYPOCHROMIA 2+; MICROCYTOSIS 2+; POLYCHROMASIA 1+; TARGET CELLS 1+
[2018-07-04 00:35] LABS: <PLATELET ESTIMATE> ADEQUATE; <PLT MORPHOLOGY> NORMAL PLT MORPH; OVALOCYTES 1+
[2018-07-04] MEDS: morphine SULFATE 10 MG/ML, 1ML IVPush PRN ×5 (01:50→20:26)
[2018-07-04] MEDS: ALBUTEROL/IPRATROPIUM 2.5MG/0.5MG, 3 ML NPPB PRN (01:58)
[2018-07-04] MEDS ORDERED: FUROSEMIDE 20 MG/2 ML IV ONE (04:00)
[2018-07-04] MEDS ORDERED: METHADONE 10 MG TABLET ONE ×2 (05:25→08:44)
[2018-07-04] MEDS: METHADONE 40 MG TABLET.SOL PO SCH ×2 (05:28→08:47)
[2018-07-04 06:26] LABS: MEAN CORPUSCULAR HEMOGLOBIN 23.6 pg (27.0-34.8); MEAN CORPUSCULAR HGB CONC 30.8 g/dL (32.4-35.8); MEAN CORPUSCULAR VOLUME 76.7 fL (80-100); MEAN PLATELET VOLUME 9.4 fL (7.4-10.4); PLATELET COUNT 227 x10^3/uL (130-400); RED BLOOD COUNT 3.42 x10^6/uL (3.82-5.3); RED CELL DISTRIBUTION WIDTH 29.7 % (9.6-15.2)
[2018-07-04 06:34] LABS: ANION GAP 8 mmol/L (5-15); CHLORIDE 106 mmol/L (98-107); CREATININE 0.85 mg/dL (0.55-1.02)
[2018-07-04 06:55] LABS: BASOPHILS # (AUTO) 0.08 x10^3/uL (0-0.1); BASOPHILS % (AUTO) 1 % (0-1); EOSINOPHILS # (AUTO) 0.44 x10^3/uL (0-0.4); EOSINOPHILS % (AUTO) 6 % (1-7); LYMPHOCYTES # (AUTO) 1.92 x10^3/uL (1-3.4); LYMPHOCYTES % (AUTO) 28 % (22-44); MD MORPH REVIEW ONLY; MONOCYTES # (AUTO) 0.64 x10^3/uL (0.2-0.8); MONOCYTES % (AUTO) 9 % (2-9); NEUTROPHILS # (AUTO) 3.82 x10^3/uL (1.8-6.8); NEUTROPHILS % (AUTO) 55 % (42-75)
[2018-07-04 06:58] LABS: ANISOCYTOSIS 2+; HYPOCHROMIA 2+; MICROCYTOSIS 1+; OVALOCYTES 1+; POLYCHROMASIA 1+
[2018-07-04 06:59] LABS: <PLATELET ESTIMATE> ADEQUATE; <PLT MORPHOLOGY> NORMAL PLT MORPH
[2018-07-04] MEDS ORDERED: PANTOPRAZOLE 40 MG IV IVPush SCH (07:30)
[2018-07-04] MEDS: FERROUS SULFATE 325 MG TABLET PO SCH ×2 (08:50→20:26)
[2018-07-04] MEDS: PANTOPRAZOLE 40 MG IV IVPush SCH (08:50)
[2018-07-04] MEDS ORDERED: METHADONE 10 MG TABLET PO SCH (09:00)
[2018-07-04] MEDS: ALBUTEROL/IPRATROPIUM 2.5MG/0.5MG, 3 ML NPPB SCH ×4 (09:41→19:10)
[2018-07-04] MEDS: SUCRALFATE 1 GM/10 ML UDC PO SCH ×3 (12:40→20:26)
[2018-07-04 12:57] LABS: MD YES; MEAN CORPUSCULAR HEMOGLOBIN 23.5 pg (27.0-34.8); MEAN CORPUSCULAR VOLUME 75.8 fL (80-100); PLATELET COUNT 239 x10^3/uL (130-400); RED BLOOD COUNT 3.45 x10^6/uL (3.82-5.3); RED CELL DISTRIBUTION WIDTH 29.6 % (9.6-15.2)
[2018-07-04 12:59] LABS: NRBC % (MANUAL) 4 % (0-1)
[2018-07-04 13:00] LABS: ANISOCYTOSIS 2+; BASOS#(MANUAL) 0.07 x10^3/uL (0-0.1); BASOS% (MANUAL) 1 % (0-1); EOS#(MANUAL) 0.54 x10^3/uL (0.0-0.4); EOS% (MANUAL) 8 % (1-7); HYPOCHROMIA 2+; LYMPH#(MANUAL) 1.36 x10^3/uL (1-3.4); LYMPHS% (MANUAL) 20 % (22-44); MICROCYTOSIS 1+; MONOS#(MANUAL) 0.34 x10^3/uL (0.3-2.7); MONOS% (MANUAL) 5 % (2-9); POLYCHROMASIA 1+; SEG#(MANUAL) 4.49 x10^3/uL (1.8-6.8); SEGS% (MANUAL) 66 % (42-75)
[2018-07-04 13:01] LABS: <PLATELET ESTIMATE> ADEQUATE; LARGE PLATELETS 1+; OVALOCYTES 1+
[2018-07-05 01:15] VITALS: BP 113/66
[2018-07-05] MEDS: morphine SULFATE 10 MG/ML, 1ML IVPush PRN ×2 (05:29→10:43)
[2018-07-05 05:59] LABS: ANION GAP 3 mmol/L (5-15); CALCIUM 8.6 mg/dL (8.5-10.1); CHLORIDE 105 mmol/L (98-107); CREATININE 0.84 mg/dL (0.55-1.02)
[2018-07-05] MEDS: ALBUTEROL/IPRATROPIUM 2.5MG/0.5MG, 3 ML NPPB SCH (06:00)
[2018-07-05 07:10] VITALS: BP 116/69
[2018-07-05] MEDS: PANTOPRAZOLE 40 MG IV IVPush SCH (07:40)
[2018-07-05] MEDS: SUCRALFATE 1 GM/10 ML UDC PO SCH ×2 (07:40→11:11)
[2018-07-05] MEDS ORDERED: METHADONE 10 MG TABLET ONE (07:57)
[2018-07-05] MEDS: FERROUS SULFATE 325 MG TABLET PO SCH (08:06)
[2018-07-05] MEDS: METHADONE 40 MG TABLET.SOL PO SCH (08:07)
[2018-07-05] MEDS ORDERED: PANT20TA3 PO (08:25)
[2018-07-05] MEDS ORDERED: SUCR1ORA5 PO (08:25)
[2018-07-05] MEDS ORDERED: PRED20TA PO (08:25)
[2018-07-05 09:14] LABS: MEAN CORPUSCULAR HEMOGLOBIN 22.8 pg (27.0-34.8); MEAN CORPUSCULAR VOLUME 76.9 fL (80-100); MEAN PLATELET VOLUME 10.3 fL (7.4-10.4); PLATELET COUNT 236 x10^3/uL (130-400); RED BLOOD COUNT 3.44 x10^6/uL (3.82-5.3); RED CELL DISTRIBUTION WIDTH 30.9 % (9.6-15.2)
[2018-07-05 09:15] LABS: MD YES; MEAN CORPUSCULAR HGB CONC 29.6 g/dL (32.4-35.8)
[2018-07-05 09:20] LABS: ANISOCYTOSIS 2+; BASOS#(MANUAL) 0.14 x10^3/uL (0-0.1); BASOS% (MANUAL) 1 % (0-1); HYPOCHROMIA 2+; LYMPH#(MANUAL) 1.29 x10^3/uL (1-3.4); LYMPHS% (MANUAL) 9 % (22-44); MICROCYTOSIS 1+; MONOS#(MANUAL) 0.14 x10^3/uL (0.3-2.7); MONOS% (MANUAL) 1 % (2-9); NRBC % (MANUAL) 3 % (0-1); POLYCHROMASIA 1+; SEG#(MANUAL) 12.73 x10^3/uL (1.8-6.8); SEGS% (MANUAL) 89 % (42-75)
[2018-07-05 09:21] LABS: <PLATELET ESTIMATE> ADEQUATE; LARGE PLATELETS 1+; OVALOCYTES 1+
== END 2018-07-05 11:30 | disposition home or self-care (01) | DRG 812 ==
LOC: ED 11:22 → OBSVTOIN 11:49 → EDIP 11:49 → 4EST 15:35
PROVIDERS: ADMIT Internal Medicine; ATTEND Internal Medicine
PROC: 30233N1 Transfusion of Nonautologous Red Blood Cells into Peripheral Vein, Percutaneous Approach (ICD-10-PCS; principal; 2018-07-03)
DX: D50.0 Iron deficiency anemia secondary to blood loss (chronic) (principal); J44.1 Chronic obstructive pulmonary disease with (acute) exacerbation; F17.210 Nicotine dependence, cigarettes, uncomplicated; F19.90 Other psychoactive substance use, unspecified, uncomplicated; F41.1 Generalized anxiety disorder; I10 Essential (primary) hypertension; G43.909 Migraine, unspecified, not intractable, without status migrainosus; K26.9 Duodenal ulcer, unspecified as acute or chronic, without hemorrhage or perforation; Z82.0 Family history of epilepsy and other diseases of the nervous system; Z83.3 Family history of diabetes mellitus; Z87.11 Personal history of peptic ulcer disease; Z90.710 Acquired absence of both cervix and uterus; Z88.6 Allergy status to analgesic agent
CPT/HCPCS: 36415; J7620; 36430; 71045; 80048; 80053; 85025; 86850; 86900; 86923; 93005; 94640; 99285; G0378; C9113; J1940; J2270; J7030; J7512; P9016

== ENCOUNTER 2018-08-16 01:22 | Inpatient (IN) | payer MEDICAID ==
[2018-08-16] VITALS (10 sets, daily range): BP systolic 115–140; BP diastolic 74–85
[~2018-08-16] VITALS: Ht 157.5 cm; Wt 76.0 kg
[~2018-08-16 01:22] MED LIST changes: +ESCI20TA10 PO; +FAMO-79 PO; -FLUT16SP NAS; +FLUT16SP24 NAS; +PANT20TA3 PO; +PRED20TA PO; +SUCR1ORA5 PO
[2018-08-16] MEDS ORDERED: CEPHALEXIN 500 MG CAPSULE PO ONE (02:00)
[2018-08-16] MEDS ORDERED: SULFAMETH./TRIMETHOPRIM DS 800MG/160MG TABLET PO ONE (02:00)
[2018-08-16] MEDS ORDERED: SULFAMETH./TRIMETHOPRIM DS 800MG/160MG TABLET ONE (02:09)
[2018-08-16] MEDS ORDERED: CEPHALEXIN 500 MG CAPSULE ONE (02:09)
--- NOTE | 2018-08-16 02:11 | NUR ---
PT MEDICATED PER APR. PT HAS CALL LIGHT WITHIN REACH AT THIS TIME.
[2018-08-16 02:18] LABS: ALBUMIN 3.2 g/dL (3.4-5.0); ANION GAP 7 mmol/L (5-15); CALCIUM 8.2 mg/dL (8.5-10.1); CHLORIDE 104 mmol/L (98-107); CREATININE 0.84 mg/dL (0.55-1.02)
[2018-08-16 02:22] LABS: MEAN CORPUSCULAR HEMOGLOBIN 18.8 pg (27.0-34.8); MEAN CORPUSCULAR VOLUME 65.2 fL (80-100); MEAN PLATELET VOLUME 8.9 fL (7.4-10.4); PLATELET COUNT 269 x10^3/uL (130-400); RED CELL DISTRIBUTION WIDTH 28.4 % (9.6-15.2)
[2018-08-16 02:24] LABS: MEAN CORPUSCULAR HGB CONC 28.8 g/dL (32.4-35.8)
--- NOTE | 2018-08-16 02:29 | NUR ---
PT AMBULATES TO RESTROOM WITH STEADY GAIT AT THIS TIME.
[2018-08-16 02:43] LABS: ANISOCYTOSIS 2+; BASOPHILS # (AUTO) 0.05 x10^3/uL (0-0.1); BASOPHILS % (AUTO) 1 % (0-1); EOSINOPHILS % (AUTO) 4 % (1-7); HYPOCHROMIA 2+; LYMPHOCYTES # (AUTO) 1.72 x10^3/uL (1-3.4); LYMPHOCYTES % (AUTO) 23 % (22-44); MD MORPH REVIEW ONLY; MICROCYTOSIS 1+; MONOCYTES # (AUTO) 0.53 x10^3/uL (0.2-0.8); MONOCYTES % (AUTO) 7 % (2-9); NEUTROPHILS # (AUTO) 4.91 x10^3/uL (1.8-6.8); NEUTROPHILS % (AUTO) 65 % (42-75)
[2018-08-16 02:44] LABS: OVALOCYTES 1+; POLYCHROMASIA 1+
[2018-08-16 02:45] LABS: <PLATELET ESTIMATE> ADEQUATE; LARGE PLATELETS 1+
--- NOTE | 2018-08-16 03:01 | NUR ---
IV ACCESS INITIATED. LABS DRAWN FOR TYPE AND MATCH AND GIVEN TO [employer] TECH. PT RESTING COMFORTABLY IN [facility] AT THIS TIME WITH CALL LIGHT WITHIN REACH.
[2018-08-16] MEDS: SODIUM CHLORIDE 0.9% 1,000 ML IV SCH ×2 (03:03→20:01)
[2018-08-16] MEDS: AMPICILLIN/SULBACTAM 3 GM in SODIUM CHLORIDE 0.9% 100 ML IV SCH ×4 (03:30→23:12)
[2018-08-16] MEDS ORDERED: hydrALAzine 20 MG/ML, 1ML IVPush PRN (03:30)
[2018-08-16] MEDS ORDERED: VANCOMYCIN PER PHARMACY MC PRN (03:30)
[2018-08-16 03:38] LABS: % IRON SATURATION 2 % (20-55); IRON LEVEL 10 mcg/dL (50-170); TOTAL IRON BINDING CAPACITY 523 mcg/dL (250-450)
--- NOTE | 2018-08-16 03:56 | NUR ---
PT RESTING IN [facility] AT THIS TIME. VSS. PURPLE SHEET SENT TO BLOOD BLANK FOR BLOOD AND YELLOW SHEET TO PHARMACY FOR IV ABX. AWAITING MEDICATIONS AND BLOOD AT THIS TIME.
--- NOTE | 2018-08-16 04:30 | NUR ---
REPORT OF PT TO CHENG HUBBARD, ALL QUESTIONS ANSWERED. PT EDUCATED ON ROOM ASSIGNMENT AND VERBALIZES UNDERSTANDING. BLOOD AND ABX STILL INFUSING PER MAR. VSS. PT DENIES ANY OTHER NEEDS AT THIS TIME. TECH PAGED FOR PT TRANSPORT.
[2018-08-16] MEDS ORDERED: PHARMACOKINETIC MONITORING MC PRN (05:00)
[2018-08-16] MEDS: VANCOMYCIN 1,600 MG in SODIUM CHLORIDE 0.9% 250 ML IV SCH ×2 (05:12→23:09)
[2018-08-16] MEDS ORDERED: FERROUS SULFATE 325 MG TABLET PO SCH (09:00)
[2018-08-16] MEDS ORDERED: METHADONE 10 MG TABLET PO SCH (09:00)
[2018-08-16] MEDS: IRON SUCROSE COMPLEX 100MG/5ML IV SCH (10:16)
[2018-08-16] MEDS: PANTOPRAZOLE 40 MG IV IVPush SCH ×2 (10:16→20:01)
[2018-08-17] MEDS: VANCOMYCIN 1,600 MG in SODIUM CHLORIDE 0.9% 250 ML IV SCH ×2 (00:08→19:39)
[2018-08-17 01:08] VITALS: BP 115/75
[2018-08-17] MEDS: AMPICILLIN/SULBACTAM 3 GM in SODIUM CHLORIDE 0.9% 100 ML IV SCH ×3 (05:03→18:51)
[2018-08-17] MEDS ORDERED: ALBUTEROL/IPRATROPIUM 2.5MG/0.5MG, 3 ML ONE (05:23)
[2018-08-17 05:36] LABS: ALBUMIN 3.2 g/dL (3.4-5.0); ANION GAP 6 mmol/L (5-15); CALCIUM 8.3 mg/dL (8.5-10.1); CHLORIDE 110 mmol/L (98-107)
[2018-08-17 05:39] LABS: ALANINE AMINOTRANSFERASE 14 U/L (12-78); ALKALINE PHOSPHATASE 94 U/L (45-117); BILIRUBIN,TOTAL 0.6 mg/dL (0.2-1.0); CREATININE 0.85 mg/dL (0.55-1.02); TOTAL PROTEIN 6.8 g/dL (6.4-8.2)
[2018-08-17 06:00] LABS: MEAN CORPUSCULAR HEMOGLOBIN 20.6 pg (27.0-34.8); MEAN CORPUSCULAR HGB CONC 30.2 g/dL (32.4-35.8); MEAN CORPUSCULAR VOLUME 68.1 fL (80-100); MEAN PLATELET VOLUME 8.8 fL (7.4-10.4); PLATELET COUNT 267 x10^3/uL (130-400); RED BLOOD COUNT 3.95 x10^6/uL (3.82-5.3); RED CELL DISTRIBUTION WIDTH 30.2 % (9.6-15.2)
[2018-08-17] MEDS: METHADONE 10 MG TABLET PO SCH (06:03)
[2018-08-17 06:25] LABS: MD YES
[2018-08-17 06:31] LABS: EOS#(MANUAL) 0.66 x10^3/uL (0.0-0.4); EOS% (MANUAL) 8 % (1-7); LYMPH#(MANUAL) 1.56 x10^3/uL (1-3.4); LYMPHS% (MANUAL) 19 % (22-44); MONOS#(MANUAL) 0.49 x10^3/uL (0.3-2.7); MONOS% (MANUAL) 6 % (2-9); SEG#(MANUAL) 5.49 x10^3/uL (1.8-6.8); SEGS% (MANUAL) 67 % (42-75)
[2018-08-17 06:32] LABS: ANISOCYTOSIS 2+; HYPOCHROMIA 2+; POLYCHROMASIA 1+
[2018-08-17 06:34] LABS: MICROCYTOSIS 2+
[2018-08-17 06:35] LABS: <PLATELET ESTIMATE> ADEQUATE; LARGE PLATELETS 1+
[2018-08-17 07:37] VITALS: BP 138/84
[2018-08-17] MEDS: IRON SUCROSE COMPLEX 100MG/5ML IV SCH (08:53)
[2018-08-17] MEDS: PANTOPRAZOLE 40 MG IV IVPush SCH ×2 (08:53→22:04)
[2018-08-17] MEDS: ALBUTEROL/IPRATROPIUM 2.5MG/0.5MG, 3 ML NPPB SCH ×2 (09:00→21:30)
[2018-08-17] MEDS: SODIUM CHLORIDE 0.9% 1,000 ML IV SCH (12:24)
[2018-08-17 15:16] VITALS: BP 145/89
[2018-08-17 21:25] VITALS: BP 127/79
[2018-08-18] MEDS: AMPICILLIN/SULBACTAM 3 GM in SODIUM CHLORIDE 0.9% 100 ML IV SCH ×4 (00:48→17:58)
[2018-08-18] MEDS: SODIUM CHLORIDE 0.9% 1,000 ML IV SCH ×3 (01:20→20:54)
[2018-08-18 03:11] VITALS: BP 170/91
[2018-08-18 03:20] VITALS: BP 136/80
[2018-08-18 05:29] LABS: ANION GAP 7 mmol/L (5-15); CALCIUM 8.4 mg/dL (8.5-10.1); CHLORIDE 108 mmol/L (98-107); CREATININE 0.87 mg/dL (0.55-1.02)
[2018-08-18 05:31] LABS: MEAN CORPUSCULAR HGB CONC 29.9 g/dL (32.4-35.8); MEAN CORPUSCULAR VOLUME 70.2 fL (80-100); MEAN PLATELET VOLUME 10.4 fL (7.4-10.4); PLATELET COUNT 353 x10^3/uL (130-400); RED BLOOD COUNT 4.14 x10^6/uL (3.82-5.3); RED CELL DISTRIBUTION WIDTH 31.5 % (9.6-15.2)
[2018-08-18 06:04] LABS: MD YES
[2018-08-18 06:06] LABS: EOS#(MANUAL) 0.63 x10^3/uL (0.0-0.4); EOS% (MANUAL) 4 % (1-7); LYMPH#(MANUAL) 2.05 x10^3/uL (1-3.4); LYMPHS% (MANUAL) 13 % (22-44); MONOS#(MANUAL) 0.47 x10^3/uL (0.3-2.7); MONOS% (MANUAL) 3 % (2-9); SEG#(MANUAL) 12.64 x10^3/uL (1.8-6.8); SEGS% (MANUAL) 80 % (42-75)
[2018-08-18 06:07] LABS: <PLATELET ESTIMATE> ADEQUATE; ANISOCYTOSIS 2+; HYPOCHROMIA 2+; MICROCYTOSIS 1+; OVALOCYTES 1+; POLYCHROMASIA 1+
[2018-08-18 06:08] LABS: LARGE PLATELETS 1+
[2018-08-18 06:12] LABS: SPHEROCYTES 1+
[2018-08-18] MEDS: METHADONE 10 MG TABLET PO SCH (06:18)
[2018-08-18 08:20] VITALS: BP 112/70
[2018-08-18] MEDS: IRON SUCROSE COMPLEX 100MG/5ML IV SCH (08:52)
[2018-08-18] MEDS: PANTOPRAZOLE 40 MG IV IVPush SCH ×2 (08:52→20:54)
[2018-08-18] MEDS: ALBUTEROL/IPRATROPIUM 2.5MG/0.5MG, 3 ML NPPB SCH ×2 (09:45→19:40)
[2018-08-18] MEDS: VANCOMYCIN 1,600 MG in SODIUM CHLORIDE 0.9% 250 ML IV SCH (12:00)
[2018-08-18] MEDS: VANCOMYCIN 1,800 MG in SODIUM CHLORIDE 0.9% 250 ML IV SCH (13:22)
[2018-08-18 14:53] VITALS: BP 139/81
[2018-08-18 21:36] VITALS: BP 111/66
[2018-08-19] MEDS: AMPICILLIN/SULBACTAM 3 GM in SODIUM CHLORIDE 0.9% 100 ML IV SCH ×2 (01:00→06:11)
[2018-08-19 03:06] VITALS: BP 140/86
[2018-08-19 05:31] LABS: MEAN CORPUSCULAR HEMOGLOBIN 20.5 pg (27.0-34.8); MEAN CORPUSCULAR VOLUME 71.4 fL (80-100); MEAN PLATELET VOLUME 10.7 fL (7.4-10.4); PLATELET COUNT 298 x10^3/uL (130-400); RED CELL DISTRIBUTION WIDTH 31.6 % (9.6-15.2)
[2018-08-19 05:38] LABS: ANION GAP 7 mmol/L (5-15); CALCIUM 8.2 mg/dL (8.5-10.1); CHLORIDE 109 mmol/L (98-107)
[2018-08-19 05:39] LABS: CREATININE 0.87 mg/dL (0.55-1.02)
[2018-08-19] MEDS: METHADONE 10 MG TABLET PO SCH (06:11)
[2018-08-19 06:13] LABS: MD YES; MEAN CORPUSCULAR HGB CONC 28.8 g/dL (32.4-35.8)
[2018-08-19 06:15] LABS: ANISOCYTOSIS 2+; EOS#(MANUAL) 0.54 x10^3/uL (0.0-0.4); EOS% (MANUAL) 6 % (1-7); LYMPH#(MANUAL) 2.07 x10^3/uL (1-3.4); LYMPHS% (MANUAL) 23 % (22-44); METAMYELOCYTES# (MANUAL) 0.09 x10^3/uL (0-0); METAMYELOCYTES% (MANUAL) 1 % (0-1); MONOS#(MANUAL) 0.27 x10^3/uL (0.3-2.7); MONOS% (MANUAL) 3 % (2-9); MYELOCYTES# (MANUAL) 0.18 x10^3/uL (0-0); MYELOCYTES% (MANUAL) 2 % (0-0); SEG#(MANUAL) 5.85 x10^3/uL (1.8-6.8); SEGS% (MANUAL) 65 % (42-75)
[2018-08-19 06:16] LABS: <PLATELET ESTIMATE> ADEQUATE; HYPOCHROMIA 2+; LARGE PLATELETS 1+; OVALOCYTES 1+; POLYCHROMASIA 1+; SPHEROCYTES 1+; TARGET CELLS 1+
[2018-08-19 06:17] LABS: MICROCYTOSIS 2+
[2018-08-19 06:53] VITALS: BP 129/79
[2018-08-19] MEDS: VANCOMYCIN 1,800 MG in SODIUM CHLORIDE 0.9% 250 ML IV SCH (08:47)
[2018-08-19] MEDS: PANTOPRAZOLE 40 MG IV IVPush SCH (08:47)
[2018-08-19] MEDS: SODIUM CHLORIDE 0.9% 1,000 ML IV SCH (08:47)
[2018-08-19 09:23] LABS: OCCULT BLOOD NEGATIVE (NEGATIVE)
[2018-08-19] MEDS ORDERED: AMOXICILLIN/CLAV 875-125MG TABLET PO SCH (09:30)
[2018-08-19] MEDS ORDERED: AMOX1TAB12 PO (11:53)
[2018-08-19] MEDS ORDERED: FERR325T18 PO (11:53)
[2018-08-19] MEDS ORDERED: SULF1TAB24 PO (12:01)
[2018-08-19 13:25] VITALS: BP 132/86
[2018-08-19] MEDS ORDERED: ALBUTEROL/IPRATROPIUM 2.5MG/0.5MG, 3 ML NPPB SCH (21:00)
== END 2018-08-19 13:40 | disposition home or self-care (01) | DRG 603 ==
LOC: ED 01:39 → EDIP 02:47 → 4NOR 04:43
PROVIDERS: ADMIT Family Medicine; ATTEND Family Medicine
PROC: 30233N1 Transfusion of Nonautologous Red Blood Cells into Peripheral Vein, Percutaneous Approach (ICD-10-PCS; principal; 2018-08-16)
DX: L03.115 Cellulitis of right lower limb (principal); D50.9 Iron deficiency anemia, unspecified; L03.116 Cellulitis of left lower limb; F11.10 Opioid abuse, uncomplicated; F17.200 Nicotine dependence, unspecified, uncomplicated; F41.9 Anxiety disorder, unspecified; I10 Essential (primary) hypertension; J44.9 Chronic obstructive pulmonary disease, unspecified; K27.9 Peptic ulcer, site unspecified, unspecified as acute or chronic, without hemorrhage or perforation; Z79.899 Other long term (current) drug therapy; Z86.14 Personal history of Methicillin resistant Staphylococcus aureus infection; Z90.710 Acquired absence of both cervix and uterus
CPT/HCPCS: 36415; 76881; 80048; 80053; 80202; 82040; 82272; 83540; 83550; 84145; 85014; 85018; 85025; 86850; 86900; 86923; 94640; G0378; J0295; J1756; J3370; C9113; J7030; J7050; P9016

== ENCOUNTER 2019-01-06 07:56 | Emergency (ER) | payer MEDICAID ==
[~2019-01-06] VITALS: Ht 157.5 cm; Wt 70.9 kg
[~2019-01-06 07:56] MED LIST changes: +SULF1TAB24 PO
--- NOTE | 2019-01-06 08:49 | NUR ---
PT HERE WITH SOB AND LIGHTHEADEDNESS. STATES SHE IS HERE ABOUT ONCE A MONTH FOR TRANSFUSION FOR ANEMIA. DENIES BLEEDING. TALKING IN FULL SENTENCES. REPORT TO PRIMARY RN BRANDO.
--- NOTE | 2019-01-06 08:50 | NUR ---
report received from CHENG Garcia at bedside. pt attached to all monitors. pt a&o, resps even and unlabored, nadn. awaiting lab results and dispo at this time.
--- NOTE | 2019-01-06 08:55 | NUR ---
EDTA at bedside for PIV start. lab at bedside.
[2019-01-06] MEDS ORDERED: SODIUM CHLORIDE FLUSH 10ML SYR IVF ONE (09:00)
[2019-01-06 09:17] LABS: ALANINE AMINOTRANSFERASE 22 U/L (12-78); ALBUMIN 3.4 g/dL (3.4-5.0); ANION GAP 9 mmol/L (5-15); CALCIUM 8.6 mg/dL (8.5-10.1); CHLORIDE 102 mmol/L (98-107); CREATININE 0.83 mg/dL (0.55-1.02)
[2019-01-06 09:20] LABS: ALKALINE PHOSPHATASE 112 U/L (45-117); BILIRUBIN,TOTAL 0.3 mg/dL (0.2-1.0); TOTAL PROTEIN 8.1 g/dL (6.4-8.2)
[2019-01-06] MEDS ORDERED: PANTOPRAZOLE 40 MG IV ONE (09:20)
[2019-01-06] MEDS ORDERED: PANTOPRAZOLE 40 MG IV IVPush ONE (09:30)
[2019-01-06 09:31] LABS: INTERNATIONAL NORMALIZED RATIO 0.98 (0.93-1.1); PROTHROMBIN TIME 10.3 Seconds (9.6-11.5)
[2019-01-06] MEDS ORDERED: METH10TA2 PO (09:34)
[2019-01-06] MEDS ORDERED: CLON0.5T11 PO (09:34)
[2019-01-06 09:37] LABS: MEAN CORPUSCULAR HEMOGLOBIN 16.3 pg (27.0-34.8); MEAN CORPUSCULAR VOLUME 57.6 fL (80-100); MEAN PLATELET VOLUME 9.7 fL (7.4-10.4); PLATELET COUNT 481 x10^3/uL (130-400); RED BLOOD COUNT 3.62 x10^6/uL (3.82-5.3); RED CELL DISTRIBUTION WIDTH 30.6 % (9.6-15.2)
[2019-01-06 09:39] LABS: MEAN CORPUSCULAR HGB CONC 28.3 g/dL (32.4-35.8)
--- NOTE | 2019-01-06 09:41 | NUR ---
EDMD RADHA NOTIFIED OF CRITICAL HEMOGLOBIN AND HEMATOCRIT LEVELS, MD NOTIFIED OF EXP WHEEZES NOTED TO LEFT LOWER LOBE, AND PATIENT REPORT OF COUGH. NO ORDERS RECEIVED AT THIS TIME.
[2019-01-06 09:48] LABS: MD YES
[2019-01-06 09:51] LABS: ANISOCYTOSIS 2+; BASOS#(MANUAL) 0.08 x10^3/uL (0-0.1); BASOS% (MANUAL) 1 % (0-1); EOS#(MANUAL) 0.16 x10^3/uL (0.0-0.4); EOS% (MANUAL) 2 % (1-7); LYMPH#(MANUAL) 1.84 x10^3/uL (1-3.4); LYMPHS% (MANUAL) 23 % (22-44); MICROCYTOSIS 2+; MONOS% (MANUAL) 5 % (2-9); OVALOCYTES 1+; POLYCHROMASIA 1+; SEG#(MANUAL) 5.52 x10^3/uL (1.8-6.8); SEGS% (MANUAL) 69 % (42-75)
[2019-01-06 09:52] LABS: <PLATELET ESTIMATE> INCREASED; <PLT MORPHOLOGY> NORMAL PLT MORPH; HYPOCHROMIA 3+
--- NOTE | 2019-01-06 09:52 | NUR ---
REPORT GIVEN TO CHENG SALTER WHO IS TO ASSUME CARE AT THIS TIME.
--- NOTE | 2019-01-06 09:52 | NUR ---
report from CHENG Medina. assumed care of pt at this time.
--- NOTE | 2019-01-06 10:09 | NUR ---
PT RESTING IN ROOM. VSS. AWAITING BLOOD FROM BLOOD BANK.
[2019-01-06 10:51] VITALS: BP 123/72
[2019-01-06 11:07] VITALS: BP 117/65
[2019-01-06 11:42] VITALS: BP 111/75
--- NOTE | 2019-01-06 11:45 | NUR ---
blood transfusion complete. vss. no reaction noted. chart up for recheck.
[2019-01-06 12:39] VITALS: BP 121/71
--- NOTE | 2019-01-06 12:39 | NUR ---
pt resting in room. vss. no needs expressed. awaiting gi consult.
== END 2019-01-06 13:24 | disposition home or self-care (01) ==
LOC: ED 10:15
DX: D50.0 Iron deficiency anemia secondary to blood loss (chronic) (principal); I10 Essential (primary) hypertension; J44.9 Chronic obstructive pulmonary disease, unspecified; R53.1 Weakness
CPT/HCPCS: 36415; 36430; 80053; 84703; 85025; 85610; 85730; 86850; 86900; 86923; 93005; 96374; 99285; C9113; P9016

== ENCOUNTER 2019-02-18 14:53 | Inpatient (IN) | payer MEDICAID ==
[2019-02-18] VITALS (9 sets, daily range): BP systolic 96–132; BP diastolic 58–85
[~2019-02-18] VITALS: Ht 157.5 cm; Wt 71.3 kg
[~2019-02-18 14:53] MED LIST changes: +CLON0.5T11 PO
[2019-02-18] MEDS ORDERED: SODIUM CHLORIDE FLUSH 10ML SYR IVF ONE (15:30)
--- NOTE | 2019-02-18 15:38 | NUR ---
IRON MINER BLASTING: PT TO ROOM FROM LOBBY, GAIT SLOW AND STEADY
[2019-02-18 15:57] LABS: ALANINE AMINOTRANSFERASE 15 U/L (12-78); ALBUMIN 2.8 g/dL (3.4-5.0); ANION GAP 7 mmol/L (5-15); CALCIUM 7.7 mg/dL (8.5-10.1); CHLORIDE 107 mmol/L (98-107)
--- NOTE | 2019-02-18 16:00 | NUR ---
THIS IS A 48 YO F WHO STATES "I NEED A BLOOD TRANSFUSION". C/O DIZZINES AND WEAKNESS WELL INTERMITTENT NAUSEA. DENIES CP/SOB. RESPIRATIONS ARE EVEN AND UNLABORED. NADN. PT IS RESTING ON GURNEY WITH CALL LIGHT IN REACH. DENIES FURTHER NEEDS AT THIS TIME.
[2019-02-18 16:01] LABS: ALKALINE PHOSPHATASE 86 U/L (45-117); BILIRUBIN,TOTAL 0.3 mg/dL (0.2-1.0); CREATININE 0.85 mg/dL (0.55-1.02); TROPONIN I 0.035 ng/mL (0.000-0.045)
[2019-02-18 16:12] LABS: MD YES; MEAN CORPUSCULAR HEMOGLOBIN 14.7 pg (27.0-34.8); MEAN CORPUSCULAR VOLUME 54.7 fL (80-100); MEAN PLATELET VOLUME 11.1 fL (7.4-10.4); PLATELET COUNT 297 x10^3/uL (130-400); RED BLOOD COUNT 2.25 x10^6/uL (3.82-5.3); RED CELL DISTRIBUTION WIDTH 24.9 % (9.6-15.2)
[2019-02-18 16:15] LABS: MEAN CORPUSCULAR HGB CONC 26.9 g/dL (32.4-35.8)
[2019-02-18 16:19] LABS: ANISOCYTOSIS 2+; BASOS#(MANUAL) 0.12 x10^3/uL (0-0.1); BASOS% (MANUAL) 1 % (0-1); EOS#(MANUAL) 0.36 x10^3/uL (0.0-0.4); EOS% (MANUAL) 3 % (1-7); LYMPH#(MANUAL) 2.06 x10^3/uL (1-3.4); LYMPHS% (MANUAL) 17 % (22-44); MICROCYTOSIS 2+; MONOS#(MANUAL) 0.36 x10^3/uL (0.3-2.7); MONOS% (MANUAL) 3 % (2-9); SEGS% (MANUAL) 76 % (42-75)
--- NOTE | 2019-02-18 16:19 | NUR ---
RECEIVED PHONE CALL FROM ALEJANDRA W. CRITICAL VALUES. PROVIDER UPDATED.
[2019-02-18 16:20] LABS: <PLATELET ESTIMATE> ADEQUATE; HYPOCHROMIA 3+; LARGE PLATELETS 2+; OVALOCYTES 1+; POLYCHROMASIA 1+
--- NOTE | 2019-02-18 16:22 | NUR ---
PROVIDER AT BEDSIDE, UPDATING PT ON POC.
--- NOTE | 2019-02-18 16:36 | NUR ---
BLOOD REQUEST SENT TO BLOOD BANK.
--- NOTE | 2019-02-18 17:32 | NUR ---
PT AMBULATED TO THE BATHROOM W/ A STEADY GAIT. GIVEN URINE COLLECTION CUP.
[2019-02-18 18:07] LABS: MICROSCOPIC AUTO
[2019-02-18 18:08] LABS: CULTURE INDICATED? YES
--- NOTE | 2019-02-18 18:10 | NUR ---
ATTEMPTED TO CALL REPORT WITH NO ANSWER.
--- NOTE | 2019-02-18 18:22 | NUR ---
ADMITTED PROVIDER AT BEDSIDE.
--- NOTE | 2019-02-18 18:46 | NUR ---
REPORT GIVEN TO CINDY ANAND. PT READY FOR TRANSPORT TO FLOOR.
[2019-02-18] MEDS: PANTOPRAZOLE 40 MG IV IVPush SCH (22:30)
[2019-02-18] MEDS: NICOTINE 14MG/24 HR PATCH.TD24 TD SCH (22:31)
[2019-02-19] VITALS (11 sets, daily range): BP systolic 114–132; BP diastolic 75–89
[2019-02-19] MEDS: METHADONE 10 MG TABLET PO SCH ×2 (06:11→09:00)
[2019-02-19 06:17] LABS: MEAN CORPUSCULAR HEMOGLOBIN 20.3 pg (27.0-34.8); MEAN CORPUSCULAR VOLUME 67.4 fL (80-100); PLATELET COUNT 257 x10^3/uL (130-400); RED BLOOD COUNT 3.26 x10^6/uL (3.82-5.3); RED CELL DISTRIBUTION WIDTH 35.4 % (9.6-15.2)
[2019-02-19 06:22] LABS: ANION GAP 7 mmol/L (5-15); CALCIUM 7.8 mg/dL (8.5-10.1); CHLORIDE 108 mmol/L (98-107)
[2019-02-19 07:37] LABS: MD YES
[2019-02-19 07:40] LABS: BASOS#(MANUAL) 0.12 x10^3/uL (0-0.1); BASOS% (MANUAL) 1 % (0-1); EOS#(MANUAL) 0.36 x10^3/uL (0.0-0.4); EOS% (MANUAL) 3 % (1-7); LYMPH#(MANUAL) 0.73 x10^3/uL (1-3.4); LYMPHS% (MANUAL) 6 % (22-44); MONOS#(MANUAL) 0.48 x10^3/uL (0.3-2.7); MONOS% (MANUAL) 4 % (2-9); SEG#(MANUAL) 10.41 x10^3/uL (1.8-6.8); SEGS% (MANUAL) 86 % (42-75)
[2019-02-19 07:44] LABS: ANISOCYTOSIS 2+; HYPOCHROMIA 3+; MICROCYTOSIS 2+; OVALOCYTES 1+; POLYCHROMASIA 1+
[2019-02-19 07:46] LABS: TARGET CELLS 1+
[2019-02-19 07:47] LABS: <PLATELET ESTIMATE> ADEQUATE; <PLT MORPHOLOGY> NORMAL PLT MORPH
[2019-02-19] MEDS: PANTOPRAZOLE 40 MG IV IVPush SCH ×2 (08:00→21:07)
[2019-02-19] MEDS ORDERED: FERROUS SULFATE 325 MG TABLET PO SCH (08:00)
[2019-02-19] MEDS: ALBUTEROL SULFATE 2.5 MG/3 ML NPPB PRN (14:03)
[2019-02-19] MEDS ORDERED: GOLYTELY 4,000ML ORAL.SOL PO ONE (15:00)
[2019-02-19] MEDS: IRON SUCROSE COMPLEX 100MG/5ML IV SCH (18:04)
[2019-02-19 19:08] LABS: CLOSTRIDIUM DIFFICILE ANTIGEN NEGATIVE; CLOSTRIDIUM DIFFICILE TOXIN NEGATIVE (Negative)
[2019-02-19] MEDS: NICOTINE 14MG/24 HR PATCH.TD24 TD SCH (21:06)
[2019-02-20 00:05] VITALS: BP 129/81
[2019-02-20] MEDS: METHADONE 10 MG TABLET PO SCH (05:35)
[2019-02-20 08:34] VITALS: BP 119/80
[2019-02-20 09:02] LABS: MEAN CORPUSCULAR HEMOGLOBIN 21.5 pg (27.0-34.8); MEAN CORPUSCULAR HGB CONC 30.2 g/dL (32.4-35.8); MEAN CORPUSCULAR VOLUME 71.2 fL (80-100); RED BLOOD COUNT 3.62 x10^6/uL (3.82-5.3); RED CELL DISTRIBUTION WIDTH 35.9 % (9.6-15.2)
[2019-02-20 09:05] LABS: INTERNATIONAL NORMALIZED RATIO 0.99 (0.93-1.1); PROTHROMBIN TIME 10.5 Seconds (9.6-11.5)
[2019-02-20 09:26] LABS: MD YES
[2019-02-20 09:28] LABS: ANION GAP 7 mmol/L (5-15); CHLORIDE 108 mmol/L (98-107)
[2019-02-20 09:29] LABS: CREATININE 0.77 mg/dL (0.55-1.02)
[2019-02-20 09:56] LABS: MEAN PLATELET VOLUME 10.2 fL (7.4-10.4); PLATELET COUNT 320 x10^3/uL (130-400)
[2019-02-20 09:59] LABS: ANISOCYTOSIS 2+; BANDS%(MANUAL) 2 % (0-7); EOS#(MANUAL) 0.89 x10^3/uL (0.0-0.4); EOS% (MANUAL) 6 % (1-7); LYMPH#(MANUAL) 1.18 x10^3/uL (1-3.4); LYMPHS% (MANUAL) 8 % (22-44); MICROCYTOSIS 2+; MONOS#(MANUAL) 0.74 x10^3/uL (0.3-2.7); MONOS% (MANUAL) 5 % (2-9); SEG#(MANUAL) 11.69 x10^3/uL (1.8-6.8); SEGS% (MANUAL) 79 % (42-75)
[2019-02-20 10:00] LABS: HYPOCHROMIA 3+; OVALOCYTES 1+; POLYCHROMASIA 1+; TEAR DROPS 1+
[2019-02-20 10:01] LABS: <PLATELET ESTIMATE> ADEQUATE; LARGE PLATELETS 2+
[2019-02-20] MEDS: PANTOPRAZOLE 40 MG IV IVPush SCH ×2 (10:44→21:36)
[2019-02-20] MEDS: IRON SUCROSE COMPLEX 100MG/5ML IV SCH (10:44)
[2019-02-20] MEDS: ALBUTEROL SULFATE 2.5 MG/3 ML NPPB PRN (11:11)
[2019-02-20] MEDS ORDERED: SIMETHICONE DROPS 40 MG/0.6 ML BOTTLE ONE (12:17)
[2019-02-20] MEDS ORDERED: MIDAZOLAM 1 MG/ML, 2ML ONE (12:33)
[2019-02-20] MEDS ORDERED: FENTANYL PF 100 MCG/2ML ONE (12:33)
[2019-02-20] MEDS ORDERED: PROPOFOL 10 MG/ML, 20ML ONE (12:40)
[2019-02-20] MEDS ORDERED: KETAMINE 10 MG/ML, 20ML ONE (12:40)
[2019-02-20] MEDS ORDERED: MEPERIDINE/PF 25MG/ML,1ML IVPush PRN (13:30)
[2019-02-20] MEDS ORDERED: HYDROmorphone 2 MG/ML, 1ML IVPush PRN (13:30)
[2019-02-20] MEDS ORDERED: FENTANYL PF 100 MCG/2ML IV PRN (13:30)
[2019-02-20] MEDS ORDERED: hydrALAzine 20 MG/ML, 1ML IV PRN (13:30)
[2019-02-20] MEDS ORDERED: ONDANSETRON 2MG/ML, 2ML IV PRN (13:30)
[2019-02-20] MEDS ORDERED: BISACODYL 5 MG EC TABLET PO ONE (13:30)
[2019-02-20] MEDS ORDERED: OXYcodone 5 MG/5 ML ORAL.SOL UDC PO PRN (13:30)
[2019-02-20 14:22] VITALS: BP 138/74
[2019-02-20] MEDS ORDERED: IRON DEXTRAN COMPLEX 25 MG in SODIUM CHLORIDE 0.9% 50 ML IV ONE (16:00)
[2019-02-20] MEDS ORDERED: EPINEPHRINE SYRINGE 0.1 MG/ML, 10ML IVPush PRN (16:30)
[2019-02-20] MEDS ORDERED: EPINEPHRINE 1 MG/ML, 1ML IVPush PRN (16:34)
[2019-02-20] MEDS ORDERED: IRON DEXTRAN COMPLEX 1,300 MG in SODIUM CHLORIDE 0.9% 250 ML IV ONE (17:30)
[2019-02-20] MEDS ORDERED: MAGNESIUM CITRATE 300ML ORAL SOL PO ONE (18:00)
[2019-02-20 18:46] VITALS: BP 129/85
[2019-02-20] MEDS: NICOTINE 14MG/24 HR PATCH.TD24 TD SCH (21:36)
[2019-02-20] MEDS ORDERED: ACETAMINOPHEN 325 MG TABLET PO PRN (22:30)
[2019-02-20 23:38] VITALS: BP 128/81
[2019-02-20 23:48] LABS: MICROSCOPIC INDICATED
[2019-02-20 23:49] LABS: CULTURE INDICATED? YES
[2019-02-21 00:02] VITALS: BP 116/77
[2019-02-21] MEDS: CEFTRIAXONE PMX 1GM/50ML 50 ML IV SCH (01:12)
[2019-02-21 02:52] LABS: ANION GAP 9 mmol/L (5-15); CALCIUM 8.2 mg/dL (8.5-10.1); CHLORIDE 107 mmol/L (98-107); CREATININE 0.75 mg/dL (0.55-1.02)
[2019-02-21 03:07] LABS: MEAN CORPUSCULAR HEMOGLOBIN 22.1 pg (27.0-34.8); MEAN CORPUSCULAR VOLUME 71.2 fL (80-100); MEAN PLATELET VOLUME 10.6 fL (7.4-10.4); PLATELET COUNT 345 x10^3/uL (130-400); RED BLOOD COUNT 3.51 x10^6/uL (3.82-5.3); RED CELL DISTRIBUTION WIDTH 37.5 % (9.6-15.2)
[2019-02-21 03:43] LABS: MD YES
[2019-02-21 03:44] LABS: EOS#(MANUAL) 0.53 x10^3/uL (0.0-0.4); EOS% (MANUAL) 2 % (1-7); LYMPH#(MANUAL) 0.27 x10^3/uL (1-3.4); LYMPHS% (MANUAL) 1 % (22-44); MONOS#(MANUAL) 1.33 x10^3/uL (0.3-2.7); MONOS% (MANUAL) 5 % (2-9); SEG#(MANUAL) 24.47 x10^3/uL (1.8-6.8); SEGS% (MANUAL) 92 % (42-75)
[2019-02-21 03:45] LABS: ANISOCYTOSIS 2+; HYPOCHROMIA 3+; MICROCYTOSIS 2+; POLYCHROMASIA 1+
[2019-02-21 03:46] LABS: <PLATELET ESTIMATE> ADEQUATE; OVALOCYTES 1+; SCHISTOCYTES 1+; TEAR DROPS 1+
[2019-02-21 03:47] LABS: LARGE PLATELETS 1+
[2019-02-21] MEDS ORDERED: GOLYTELY 4,000ML ORAL.SOL PO ONE (04:00)
[2019-02-21] MEDS: METHADONE 10 MG TABLET PO SCH (05:31)
[2019-02-21 07:01] VITALS: BP 107/75
[2019-02-21] MEDS: PANTOPRAZOLE 40 MG IV IVPush SCH ×3 (08:58→21:32)
[2019-02-21] MEDS ORDERED: PROMETHAZINE 25 MG/ML, 1ML IV PRN (11:30)
[2019-02-21] MEDS ORDERED: FENTANYL PF 100 MCG/2ML IV PRN (11:30)
[2019-02-21] MEDS ORDERED: ONDANSETRON 2MG/ML, 2ML IV PRN (11:30)
[2019-02-21] MEDS ORDERED: hydrALAzine 20 MG/ML, 1ML IV PRN (11:30)
[2019-02-21] MEDS ORDERED: OXYcodone 5 MG/5 ML ORAL.SOL UDC PO PRN (11:30)
[2019-02-21] MEDS ORDERED: MIDAZOLAM 1 MG/ML, 2ML IV PRN (11:30)
[2019-02-21] MEDS ORDERED: LABETALOL 5MG/ML, 20ML IV PRN (11:30)
[2019-02-21] MEDS ORDERED: HYDROmorphone 2 MG/ML, 1ML IVPush PRN (11:30)
[2019-02-21] MEDS ORDERED: FENTANYL PF 100 MCG/2ML ONE (13:51)
[2019-02-21] MEDS ORDERED: MIDAZOLAM 1 MG/ML, 2ML ONE (13:52)
[2019-02-21] MEDS ORDERED: PROPOFOL 10 MG/ML, 20ML ONE ×3 (14:48→15:28)
[2019-02-21] MEDS ORDERED: VANCOMYCIN PER PHARMACY MC PRN (17:00)
[2019-02-21 17:22] VITALS: BP 137/82
[2019-02-21] MEDS ORDERED: PHARMACOKINETIC MONITORING MC PRN (18:00)
[2019-02-21] MEDS: VANCOMYCIN 1,500 MG in SODIUM CHLORIDE 0.9% 250 ML IV SCH (18:46)
[2019-02-21] MEDS: ALBUTEROL SULFATE 2.5 MG/3 ML NPPB PRN (19:51)
[2019-02-21 20:43] VITALS: BP 123/72
[2019-02-21] MEDS: NICOTINE 14MG/24 HR PATCH.TD24 TD SCH (21:42)
[2019-02-21] MEDS ORDERED: OMNIPAQUE 350 MG/ML, 100ML BOTTLE ONE (23:53)
[2019-02-22] MEDS: CEFTRIAXONE PMX 1GM/50ML 50 ML IV SCH (01:03)
[2019-02-22 03:19] VITALS: BP 129/76
[2019-02-22] MEDS: VANCOMYCIN 1,500 MG in SODIUM CHLORIDE 0.9% 250 ML IV SCH (05:42)
[2019-02-22] MEDS: METHADONE 10 MG TABLET PO SCH (05:43)
[2019-02-22 05:59] LABS: MEAN CORPUSCULAR HEMOGLOBIN 22.4 pg (27.0-34.8); MEAN CORPUSCULAR HGB CONC 30.5 g/dL (32.4-35.8); MEAN CORPUSCULAR VOLUME 73.5 fL (80-100); MEAN PLATELET VOLUME 10.9 fL (7.4-10.4); PLATELET COUNT 357 x10^3/uL (130-400); RED BLOOD COUNT 3.58 x10^6/uL (3.82-5.3)
[2019-02-22 06:00] LABS: ALBUMIN 2.6 g/dL (3.4-5.0); ANION GAP 7 mmol/L (5-15); CALCIUM 7.7 mg/dL (8.5-10.1); CHLORIDE 107 mmol/L (98-107)
[2019-02-22 06:04] LABS: ALKALINE PHOSPHATASE 88 U/L (45-117); BILIRUBIN,TOTAL 0.2 mg/dL (0.2-1.0); CREATININE 0.84 mg/dL (0.55-1.02); TOTAL PROTEIN 6.4 g/dL (6.4-8.2)
[2019-02-22 06:07] LABS: ALANINE AMINOTRANSFERASE < 6 U/L (12-78)
[2019-02-22 06:35] LABS: MD YES
[2019-02-22 06:36] LABS: ANISOCYTOSIS 2+; EOS#(MANUAL) 0.54 x10^3/uL (0.0-0.4); EOS% (MANUAL) 4 % (1-7); HYPOCHROMIA 3+; LYMPH#(MANUAL) 1.77 x10^3/uL (1-3.4); LYMPHS% (MANUAL) 13 % (22-44); MICROCYTOSIS 2+; MONOS#(MANUAL) 1.09 x10^3/uL (0.3-2.7); MONOS% (MANUAL) 8 % (2-9); NRBC % (MANUAL) 1 % (0-1); SEGS% (MANUAL) 75 % (42-75)
[2019-02-22 06:37] LABS: OVALOCYTES 1+; POLYCHROMASIA 1+; TEAR DROPS 1+
[2019-02-22 06:38] LABS: SPHEROCYTES 1+
[2019-02-22 06:39] LABS: <PLATELET ESTIMATE> ADEQUATE; LARGE PLATELETS 1+
[2019-02-22 07:14] VITALS: BP 115/71
[2019-02-22] MEDS: PANTOPRAZOLE 40 MG IV IVPush SCH (08:16)
[2019-02-22] MEDS: IRON SUCROSE COMPLEX 100MG/5ML IV SCH (08:16)
[2019-02-22] MEDS ORDERED: POTASSIUM CHLORIDE 20 MEQ TAB.ER.PRT PO ONE (10:30)
[2019-02-22 15:14] VITALS: BP 137/94
[2019-02-22 16:27] LABS: CRYPTOSPORIDIUM ANTIGEN Negative (Negative)
[2019-02-22 20:24] VITALS: BP 132/77
[2019-02-22] MEDS: DOXYCYCLINE 100MG TABLET PO SCH (21:32)
[2019-02-22] MEDS: NICOTINE 14MG/24 HR PATCH.TD24 TD SCH (21:32)
[2019-02-22] MEDS: GUAIFENESIN ER 600 MG TABLET PO SCH (21:32)
[2019-02-22] MEDS: PANTOPROZOLE 40MG TABLET PO SCH (21:32)
[2019-02-22] MEDS: ALBUTEROL SULFATE 2.5 MG/3 ML NPPB PRN (21:39)
[2019-02-23] MEDS: CEFTRIAXONE PMX 1GM/50ML 50 ML IV SCH (00:56)
[2019-02-23 01:55] VITALS: BP 142/87
[2019-02-23] MEDS: METHADONE 10 MG TABLET PO SCH (05:45)
[2019-02-23 06:22] LABS: CHLORIDE 111 mmol/L (98-107)
[2019-02-23 06:28] LABS: ANION GAP 9 mmol/L (5-15); CALCIUM 8.1 mg/dL (8.5-10.1); CREATININE 0.73 mg/dL (0.55-1.02)
[2019-02-23 06:45] LABS: MD YES; MEAN CORPUSCULAR HEMOGLOBIN 22.6 pg (27.0-34.8); MEAN CORPUSCULAR HGB CONC 30.3 g/dL (32.4-35.8); MEAN CORPUSCULAR VOLUME 74.6 fL (80-100); MEAN PLATELET VOLUME 11.2 fL (7.4-10.4); PLATELET COUNT 358 x10^3/uL (130-400); RED BLOOD COUNT 3.62 x10^6/uL (3.82-5.3); RED CELL DISTRIBUTION WIDTH 40.3 % (9.6-15.2)
[2019-02-23 06:46] LABS: BAND#(MANUAL) 0.12 x10^3/uL; BANDS%(MANUAL) 1 % (0-7); LYMPH#(MANUAL) 0.62 x10^3/uL (1-3.4); LYMPHS% (MANUAL) 5 % (22-44); MONOS#(MANUAL) 0.37 x10^3/uL (0.3-2.7); MONOS% (MANUAL) 3 % (2-9)
[2019-02-23 06:47] LABS: ANISOCYTOSIS 3+; EOS#(MANUAL) 0.49 x10^3/uL (0.0-0.4); EOS% (MANUAL) 4 % (1-7); HYPOCHROMIA 3+; MICROCYTOSIS 2+; OVALOCYTES 1+; POLYCHROMASIA 1+; SEGS% (MANUAL) 87 % (42-75); SPHEROCYTES 1+
[2019-02-23 06:48] LABS: TEAR DROPS 1+
[2019-02-23 06:49] LABS: <PLATELET ESTIMATE> ADEQUATE; LARGE PLATELETS 2+
[2019-02-23] MEDS: PANTOPROZOLE 40MG TABLET PO SCH (07:21)
[2019-02-23] MEDS: DOXYCYCLINE 100MG TABLET PO SCH (07:21)
[2019-02-23] MEDS: GUAIFENESIN ER 600 MG TABLET PO SCH (07:21)
[2019-02-23] MEDS: IRON SUCROSE COMPLEX 100MG/5ML IV SCH (07:22)
[2019-02-23 08:03] VITALS: BP 127/86
[2019-02-23] MEDS ORDERED: POTASSIUM CHLORIDE 20 MEQ TAB.ER.PRT PO ONE (08:30)
[2019-02-23] MEDS: ALBUTEROL SULFATE 2.5 MG/3 ML NPPB PRN (09:25)
[2019-02-23] MEDS ORDERED: DOXY100T PO (11:49)
[2019-02-23] MEDS ORDERED: CEFD300C37 PO (11:49)
[2019-02-23] MEDS ORDERED: PANT40TA5 PO (11:49)
[2019-02-23 13:16] VITALS: BP 144/92
== END 2019-02-23 15:47 | disposition home or self-care (01) | DRG 394 ==
LOC: ED 17:04 → EDIP 17:05 → ED 17:09 → 3N 19:06
PROVIDERS: ADMIT Internal Medicine; ATTEND Internal Medicine
PROC: 30233N1 Transfusion of Nonautologous Red Blood Cells into Peripheral Vein, Percutaneous Approach (ICD-10-PCS; 2019-02-18)
PROC: 0DB98ZX Excision of Duodenum, Via Natural or Artificial Opening Endoscopic, Diagnostic (ICD-10-PCS; 2019-02-20)
PROC: 0DB68ZX Excision of Stomach, Via Natural or Artificial Opening Endoscopic, Diagnostic (ICD-10-PCS; 2019-02-20)
PROC: 0DJD8ZZ Inspection of Lower Intestinal Tract, Via Natural or Artificial Opening Endoscopic (ICD-10-PCS; 2019-02-20)
PROC: 0DBH8ZX Excision of Cecum, Via Natural or Artificial Opening Endoscopic, Diagnostic (ICD-10-PCS; principal; 2019-02-21 14:15)
DX: K63.3 Ulcer of intestine (principal); E87.2 Acidosis; F11.20 Opioid dependence, uncomplicated; R65.10 Systemic inflammatory response syndrome (SIRS) of non-infectious origin without acute organ dysfunction; D62 Acute posthemorrhagic anemia; F17.200 Nicotine dependence, unspecified, uncomplicated; F32.9 Major depressive disorder, single episode, unspecified; F41.1 Generalized anxiety disorder; G89.29 Other chronic pain; E66.9 Obesity, unspecified; R19.7 Diarrhea, unspecified; I10 Essential (primary) hypertension; J44.9 Chronic obstructive pulmonary disease, unspecified; Z87.11 Personal history of peptic ulcer disease; Z90.710 Acquired absence of both cervix and uterus; Z91.14 Patient's other noncompliance with medication regimen; Z91.19 Patient's noncompliance with other medical treatment and regimen; Z90.49 Acquired absence of other specified parts of digestive tract; Z79.899 Other long term (current) drug therapy; Z68.28 Body mass index [BMI] 28.0-28.9, adult
CPT/HCPCS: 36415; 84145; 87046; 87427; 99291; J7613; 36430; 71045; 74177; 76881; 80048; 80053; 81001; 83605; 84484; 85014; 85018; 85025; 85610; 86850; 86900; 86923; 87040; 87086; 87186; 87324; 87328; 87329; 88305; 93005; 93306; 94640; G0378; J0696; J1750; J1756; J2250; J2704; J3010; J3370; Q9967; C9113; J7050; P9016

== ENCOUNTER 2019-03-14 09:35 | Emergency (ER) | payer MEDICAID ==
[~2019-03-14] VITALS: Ht 157.5 cm; Wt 72.2 kg
[~2019-03-14 09:35] MED LIST changes: +CLON-364 PO; -CLON0.5T11 PO; +DOXY100T PO; +PANT40TA5 PO
--- NOTE | 2019-03-14 10:02 | NUR ---
PT CAME STRAIGHT HERE FROM [facility] AFTER NURSE AT CLINIC NOTED PT TO BE SATING 83% ON RA. PT CURRENTLY ON 3LNC AT THIS TIME SATING 93%. PT DROWSY STATES SHE WAS GIVEN 60MG METHADONE. PT WITH RECENT PNA PER PT AND HX COPD, PT STATES OUT OF BREATHING TX MEDICATIONS
[2019-03-14] MEDS ORDERED: methylPREDNISolone SOD SUCC 125 MG/2 ML ONE (10:41)
[2019-03-14] MEDS ORDERED: ALBUTEROL SULFATE 2.5 MG/3 ML ONE (10:49)
[2019-03-14] MEDS ORDERED: ALBUTEROL/IPRATROPIUM 2.5MG/0.5MG, 3 ML ONE (10:49)
[2019-03-14] MEDS ORDERED: ALBUTEROL SULFATE 2.5 MG/3 ML NPPB ONE (11:00)
[2019-03-14] MEDS ORDERED: ALBUTEROL/IPRATROPIUM 2.5MG/0.5MG, 3 ML NEB ONE (11:00)
[2019-03-14] MEDS ORDERED: SODIUM CHLORIDE FLUSH 10ML SYR IVF ONE (11:00)
[2019-03-14] MEDS ORDERED: methylPREDNISolone SOD SUCC 125 MG/2 ML IV ONE (11:00)
--- NOTE | 2019-03-14 11:06 | NUR ---
PIV INITITATED, PT MEDICATED PER APR, RT IN TO GIVE BREATHING TX. DX CHEST COMPLETED. VSS, NAD NOTED AT THIS TIME
--- NOTE | 2019-03-14 12:06 | NUR ---
UNABLE TO WEEN PT OFF O2 AT THIS TIME, PT DESATING TO 83-85% ON RA, ERMD UPDATED. ERMD IN TO UPDATE PT ON POC, THIS RN IN WHILE ERMD PERFORMED RECTAL EXAM, PT TOLERATED WELL. PT TO REMAIN NPO AT THIS TIME.
[2019-03-14 12:08] LABS: INTERNATIONAL NORMALIZED RATIO 0.95 (0.93-1.1); PROTHROMBIN TIME 10.1 Seconds (9.6-11.5)
[2019-03-14 12:09] LABS: ALBUMIN 3.2 g/dL (3.4-5.0); ANION GAP 6 mmol/L (5-15); CALCIUM 8.2 mg/dL (8.5-10.1); CHLORIDE 108 mmol/L (98-107)
[2019-03-14 12:11] LABS: MEAN CORPUSCULAR HEMOGLOBIN 25.3 pg (27.0-34.8); MEAN CORPUSCULAR HGB CONC 31.4 g/dL (32.4-35.8); MEAN CORPUSCULAR VOLUME 80.5 fL (80-100); MEAN PLATELET VOLUME 10.8 fL (7.4-10.4); PLATELET COUNT 344 x10^3/uL (130-400); RED BLOOD COUNT 3.87 x10^6/uL (3.82-5.3); RED CELL DISTRIBUTION WIDTH 33.8 % (9.6-15.2)
[2019-03-14 12:14] LABS: ALANINE AMINOTRANSFERASE 18 U/L (12-78); ALKALINE PHOSPHATASE 83 U/L (45-117); BILIRUBIN,TOTAL 0.2 mg/dL (0.2-1.0); CREATININE 0.75 mg/dL (0.55-1.02); TOTAL PROTEIN 7.1 g/dL (6.4-8.2)
[2019-03-14 12:39] LABS: BASOPHILS # (AUTO) 0.01 x10^3/uL (0-0.1); BASOPHILS % (AUTO) 0 % (0-1); EOSINOPHILS # (AUTO) 1.08 x10^3/uL (0-0.4); EOSINOPHILS % (AUTO) 12 % (1-7); LYMPHOCYTES # (AUTO) 1.95 x10^3/uL (1-3.4); LYMPHOCYTES % (AUTO) 21 % (22-44); MD MORPH REVIEW ONLY; MONOCYTES # (AUTO) 0.68 x10^3/uL (0.2-0.8); MONOCYTES % (AUTO) 8 % (2-9); NEUTROPHILS # (AUTO) 5.38 x10^3/uL (1.8-6.8); NEUTROPHILS % (AUTO) 59 % (42-75)
[2019-03-14 12:41] LABS: <PLATELET ESTIMATE> ADEQUATE; ANISOCYTOSIS 2+; HYPOCHROMIA 1+; MICROCYTOSIS 2+; POLYCHROMASIA 1+
[2019-03-14 12:42] LABS: LARGE PLATELETS 1+
[2019-03-14 12:43] LABS: OVALOCYTES 1+
[2019-03-14 12:47] VITALS: BP 108/63
[2019-03-14] MEDS ORDERED: PANTOPRAZOLE 80 MG in SODIUM CHLORIDE 0.9% 50 ML IV ONE (13:00)
[2019-03-14] MEDS ORDERED: PANTOPRAZOLE 80 MG in SODIUM CHLORIDE 0.9% 100 ML IV SCH (13:30)
== END 2019-03-14 14:44 | disposition left against medical advice (07) ==
LOC: ED 12:50 → EDIP 13:23 → UNDOADMIN 13:23 → ED 14:44
DX: J44.1 Chronic obstructive pulmonary disease with (acute) exacerbation (principal); J96.01 Acute respiratory failure with hypoxia; K92.2 Gastrointestinal hemorrhage, unspecified; F41.1 Generalized anxiety disorder; I10 Essential (primary) hypertension
CPT/HCPCS: 36415; 71045; 80053; 82728; 83540; 83550; 84466; 85025; 85610; 85730; 94640; 96374; 99291; J2930; J7613; J7620

== ENCOUNTER 2019-04-13 04:21 | Inpatient (IN) | payer MEDICAID ==
[~2019-04-13] VITALS: Ht 157.5 cm; Wt 76.8 kg
[2019-04-13] MEDS ORDERED: PROP10TA16 PO (04:32)
[2019-04-13] MEDS ORDERED: OLAN7.5T5 PO (04:32)
[2019-04-13] MEDS ORDERED: ALBUTEROL/IPRATROPIUM 2.5MG/0.5MG, 3 ML ONE ×2 (04:53→06:21)
[2019-04-13] MEDS ORDERED: methylPREDNISolone SOD SUCC 125 MG/2 ML IV ONE (05:00)
[2019-04-13] MEDS ORDERED: SODIUM CHLORIDE FLUSH 10ML SYR IVF ONE (05:00)
[2019-04-13] MEDS ORDERED: ALBUTEROL/IPRATROPIUM 2.5MG/0.5MG, 3 ML NPPB PRN ×2 (05:00→15:00)
--- NOTE | 2019-04-13 05:04 | NUR ---
THIS IS A 48Y F COMES IN TODAY FOR SOB AND NOT BEING ABLE TO BREATHE. PT HAS HX OF PNA RECENTLY. PT ON 6L O2 VIA MASK SATS MID 90'S. PT CONNECTED TO ALL MONITORING.
--- NOTE | 2019-04-13 05:07 | NUR ---
LAB AT BEDSIDE
[2019-04-13] MEDS ORDERED: methylPREDNISolone SOD SUCC 125 MG/2 ML ONE (05:17)
[2019-04-13 05:32] LABS: BASOPHILS # (AUTO) 0.07 x10^3/uL (0-0.1); BASOPHILS % (AUTO) 1 % (0-1); EOSINOPHILS # (AUTO) 0.98 x10^3/uL (0-0.4); EOSINOPHILS % (AUTO) 12 % (1-7); LYMPHOCYTES # (AUTO) 2.02 x10^3/uL (1-3.4); LYMPHOCYTES % (AUTO) 24 % (22-44); MD NO; MEAN CORPUSCULAR HEMOGLOBIN 26.1 pg (27.0-34.8); MEAN CORPUSCULAR HGB CONC 31.6 g/dL (32.4-35.8); MEAN CORPUSCULAR VOLUME 82.7 fL (80-100); MEAN PLATELET VOLUME 9.3 fL (7.4-10.4); MONOCYTES % (AUTO) 6 % (2-9); NEUTROPHILS # (AUTO) 4.93 x10^3/uL (1.8-6.8); NEUTROPHILS % (AUTO) 58 % (42-75); PLATELET COUNT 392 x10^3/uL (130-400); RED BLOOD COUNT 3.26 x10^6/uL (3.82-5.3); RED CELL DISTRIBUTION WIDTH 16.8 % (9.6-15.2)
[2019-04-13 05:43] LABS: ALBUMIN 2.9 g/dL (3.4-5.0); ANION GAP 5 mmol/L (5-15); CALCIUM 7.9 mg/dL (8.5-10.1); CHLORIDE 108 mmol/L (98-107); CREATININE 0.64 mg/dL (0.55-1.02)
[2019-04-13 05:47] LABS: TROPONIN I < 0.015 ng/mL (0.000-0.045)
[2019-04-13] MEDS ORDERED: MAGNESIUM SULFATE PMX 2GM/50ML 50 ML IV ONE (06:00)
[2019-04-13] MEDS ORDERED: CEFTRIAXONE PMX 1GM/50ML 50 ML IV ONE (06:00)
[2019-04-13] MEDS ORDERED: AZITHROMYCIN 500 MG in SODIUM CHLORIDE 0.9% 250 ML IV ONE (06:00)
[2019-04-13] MEDS ORDERED: ALBUTEROL SULFATE 2.5 MG/3 ML NPPB ONE (06:00)
[2019-04-13] MEDS ORDERED: MAGNESIUM SULFATE PMX 2GM/50ML 50 ML ONE (06:06)
[2019-04-13] MEDS ORDERED: CEFTRIAXONE PMX 1GM/50ML 50 ML ONE (06:19)
--- NOTE | 2019-04-13 06:21 | NUR ---
ADDITIONAL PIV ATTEMPT. US IV AT BEDSIDE FOR 2ND IV PLACEMENT
[2019-04-13] MEDS ORDERED: morphine SULFATE 10 MG/ML, 1ML IVPush PRN (06:30)
[2019-04-13] MEDS ORDERED: ENOXAPARIN 40 MG/0.4 ML SQ SCH (06:30)
[2019-04-13] MEDS ORDERED: ACETAMINOPHEN 325 MG TABLET PO PRN (06:30)
--- NOTE | 2019-04-13 06:32 | NUR ---
ABX STARTED CULTURES X2 DRAWN PRIOR TO ABX START
--- NOTE | 2019-04-13 06:38 | NUR ---
REPORT CALLED TO FLOOR RN
[2019-04-13 07:41] VITALS: BP 115/82
[2019-04-13] MEDS ORDERED: methylPREDNISolone SOD SUCC 40 MG/ML IV SCH (09:00)
[2019-04-13] MEDS: METHADONE 10 MG TABLET PO SCH (09:07)
[2019-04-13] MEDS: PANTOPROZOLE 40MG TABLET PO SCH ×2 (09:07→21:10)
[2019-04-13] MEDS: PROPRANOLOL 10 MG TABLET PO SCH (09:08)
[2019-04-13] MEDS: FERROUS SULFATE 325 MG TABLET PO SCH ×2 (09:08→16:04)
[2019-04-13] MEDS: methylPREDNISolone SOD SUCC 40 MG/ML IV SCH ×3 (09:08→21:10)
[2019-04-13] MEDS: SODIUM CHLORIDE 0.9% 1,000 ML IV SCH ×2 (10:28→21:10)
[2019-04-13 12:15] VITALS: BP 113/74
[2019-04-13] MEDS: ALBUTEROL/IPRATROPIUM 2.5MG/0.5MG, 3 ML NPPB SCH ×2 (15:25→20:00)
[2019-04-13 19:16] VITALS: BP 112/69
[2019-04-13] MEDS: OLANZAPINE 2.5 MG TABLET PO SCH (21:10)
[2019-04-14 01:30] VITALS: BP 100/66
[2019-04-14 06:39] VITALS: BP 116/72
[2019-04-14 06:48] LABS: BASOPHILS % (AUTO) 0 % (0-1); EOSINOPHILS # (AUTO) 0.12 x10^3/uL (0-0.4); EOSINOPHILS % (AUTO) 1 % (1-7); LYMPHOCYTES # (AUTO) 0.75 x10^3/uL (1-3.4); LYMPHOCYTES % (AUTO) 6 % (22-44); MD NO; MEAN CORPUSCULAR HEMOGLOBIN 25.7 pg (27.0-34.8); MEAN PLATELET VOLUME 9.5 fL (7.4-10.4); MONOCYTES # (AUTO) 0.27 x10^3/uL (0.2-0.8); MONOCYTES % (AUTO) 2 % (2-9); NEUTROPHILS # (AUTO) 10.53 x10^3/uL (1.8-6.8); NEUTROPHILS % (AUTO) 90 % (42-75); PLATELET COUNT 344 x10^3/uL (130-400); RED CELL DISTRIBUTION WIDTH 16.8 % (9.6-15.2)
[2019-04-14 06:57] LABS: ANION GAP 7 mmol/L (5-15); CALCIUM 8.2 mg/dL (8.5-10.1); CHLORIDE 107 mmol/L (98-107); CREATININE 0.65 mg/dL (0.55-1.02)
[2019-04-14] MEDS: SODIUM CHLORIDE 0.9% 1,000 ML IV SCH ×2 (08:01→22:43)
[2019-04-14] MEDS: methylPREDNISolone SOD SUCC 40 MG/ML IV SCH ×3 (08:08→22:43)
[2019-04-14] MEDS: AZITHROMYCIN 500 MG TABLET PO SCH (08:09)
[2019-04-14] MEDS: PROPRANOLOL 10 MG TABLET PO SCH (08:09)
[2019-04-14] MEDS: PANTOPROZOLE 40MG TABLET PO SCH ×2 (08:09→20:09)
[2019-04-14] MEDS: FERROUS SULFATE 325 MG TABLET PO SCH ×2 (08:09→17:39)
[2019-04-14] MEDS: METHADONE 10 MG TABLET PO SCH (08:09)
[2019-04-14] MEDS: ALBUTEROL/IPRATROPIUM 2.5MG/0.5MG, 3 ML NPPB SCH ×4 (08:52→20:15)
[2019-04-14] MEDS: INSULIN LISPRO 100 UNITS/ML, PEN SQ-INSULIN SCH ×3 (12:00→20:10)
[2019-04-14 13:09] VITALS: BP 128/81
[2019-04-14 18:51] VITALS: BP 128/76
[2019-04-14] MEDS: OLANZAPINE 2.5 MG TABLET PO SCH (20:09)
[2019-04-15 00:28] VITALS: BP 151/80
[2019-04-15 05:50] VITALS: BP 130/77
[2019-04-15] MEDS: METHADONE 10 MG TABLET PO SCH (05:52)
[2019-04-15 06:52] LABS: BASOPHILS % (AUTO) 0 % (0-1); EOSINOPHILS # (AUTO) 0.09 x10^3/uL (0-0.4); EOSINOPHILS % (AUTO) 1 % (1-7); LYMPHOCYTES % (AUTO) 6 % (22-44); MD NO; MEAN CORPUSCULAR HEMOGLOBIN 25.8 pg (27.0-34.8); MEAN CORPUSCULAR VOLUME 83.1 fL (80-100); MEAN PLATELET VOLUME 9.8 fL (7.4-10.4); MONOCYTES # (AUTO) 0.19 x10^3/uL (0.2-0.8); MONOCYTES % (AUTO) 1 % (2-9); NEUTROPHILS # (AUTO) 15.87 x10^3/uL (1.8-6.8); NEUTROPHILS % (AUTO) 92 % (42-75); PLATELET COUNT 374 x10^3/uL (130-400); RED BLOOD COUNT 3.34 x10^6/uL (3.82-5.3); RED CELL DISTRIBUTION WIDTH 16.9 % (9.6-15.2)
[2019-04-15 07:06] LABS: ANION GAP 7 mmol/L (5-15); CHLORIDE 107 mmol/L (98-107)
[2019-04-15 07:07] LABS: CREATININE 0.76 mg/dL (0.55-1.02)
[2019-04-15 07:13] VITALS: BP 144/86
[2019-04-15] MEDS: ALBUTEROL/IPRATROPIUM 2.5MG/0.5MG, 3 ML NPPB SCH ×4 (08:06→19:32)
[2019-04-15] MEDS: methylPREDNISolone SOD SUCC 40 MG/ML IV SCH ×3 (08:30→20:21)
[2019-04-15] MEDS: AZITHROMYCIN 500 MG TABLET PO SCH (08:31)
[2019-04-15] MEDS: PROPRANOLOL 10 MG TABLET PO SCH (08:31)
[2019-04-15] MEDS: SODIUM CHLORIDE 0.9% 1,000 ML IV SCH (08:31)
[2019-04-15] MEDS: FERROUS SULFATE 325 MG TABLET PO SCH ×2 (08:31→16:27)
[2019-04-15] MEDS: PANTOPROZOLE 40MG TABLET PO SCH ×2 (08:31→20:19)
[2019-04-15] MEDS: INSULIN LISPRO 100 UNITS/ML, PEN SQ-INSULIN SCH ×4 (08:32→20:20)
[2019-04-15 13:54] VITALS: BP 149/80
[2019-04-15 17:22] LABS: OCCULT BLOOD POSITIVE (NEGATIVE)
[2019-04-15 19:17] VITALS: BP 153/82
[2019-04-15] MEDS: OLANZAPINE 2.5 MG TABLET PO SCH (20:19)
[2019-04-16 00:02] VITALS: BP 147/78
[2019-04-16] MEDS: METHADONE 10 MG TABLET PO SCH ×2 (05:28→09:19)
[2019-04-16 06:04] LABS: BASOPHILS # (AUTO) 0.01 x10^3/uL (0-0.1); BASOPHILS % (AUTO) 0 % (0-1); EOSINOPHILS # (AUTO) 0.07 x10^3/uL (0-0.4); EOSINOPHILS % (AUTO) 1 % (1-7); LYMPHOCYTES # (AUTO) 1.32 x10^3/uL (1-3.4); LYMPHOCYTES % (AUTO) 8 % (22-44); MD NO; MEAN CORPUSCULAR HEMOGLOBIN 25.9 pg (27.0-34.8); MEAN CORPUSCULAR HGB CONC 31.2 g/dL (32.4-35.8); MEAN CORPUSCULAR VOLUME 82.9 fL (80-100); MEAN PLATELET VOLUME 10.5 fL (7.4-10.4); MONOCYTES # (AUTO) 0.34 x10^3/uL (0.2-0.8); MONOCYTES % (AUTO) 2 % (2-9); NEUTROPHILS # (AUTO) 14.09 x10^3/uL (1.8-6.8); NEUTROPHILS % (AUTO) 89 % (42-75); PLATELET COUNT 371 x10^3/uL (130-400); RED BLOOD COUNT 3.47 x10^6/uL (3.82-5.3); RED CELL DISTRIBUTION WIDTH 16.9 % (9.6-15.2)
[2019-04-16 06:16] LABS: ANION GAP 5 mmol/L (5-15); CALCIUM 8.3 mg/dL (8.5-10.1); CHLORIDE 107 mmol/L (98-107)
[2019-04-16 06:17] LABS: CREATININE 0.66 mg/dL (0.55-1.02)
[2019-04-16 06:39] VITALS: BP 160/89
[2019-04-16] MEDS: ALBUTEROL/IPRATROPIUM 2.5MG/0.5MG, 3 ML NPPB SCH ×2 (07:35→11:00)
[2019-04-16] MEDS: INSULIN LISPRO 100 UNITS/ML, PEN SQ-INSULIN SCH ×2 (08:39→12:22)
[2019-04-16] MEDS: methylPREDNISolone SOD SUCC 40 MG/ML IV SCH (09:19)
[2019-04-16] MEDS: PANTOPROZOLE 40MG TABLET PO SCH (09:19)
[2019-04-16] MEDS: FERROUS SULFATE 325 MG TABLET PO SCH (09:19)
[2019-04-16] MEDS: AZITHROMYCIN 500 MG TABLET PO SCH (09:19)
[2019-04-16] MEDS: PROPRANOLOL 10 MG TABLET PO SCH (09:20)
[2019-04-16] MEDS ORDERED: ALBU18HF INH (11:25)
[2019-04-16] MEDS ORDERED: FERR-51 PO (11:25)
[2019-04-16] MEDS ORDERED: TIOT18CA INH (11:25)
[2019-04-16] MEDS ORDERED: AZIT500T10 PO (11:25)
[2019-04-16] MEDS ORDERED: FLU VACC QS2019-20 36MOS UP/PF 0.5 ML IM ONE (12:30)
[2019-04-16 13:13] VITALS: BP 144/96
== END 2019-04-16 15:45 | disposition home or self-care (01) | DRG 871 ==
LOC: ED 05:25 → EDIP 07:08 → 4WST 07:36 → 4EST 04-15 10:42 → DCLOUNGE 04-16 15:38
PROVIDERS: ADMIT Internal Medicine Infectious Disease; ATTEND Internal Medicine
DX: A41.9 Sepsis, unspecified organism (principal); J18.0 Bronchopneumonia, unspecified organism; J96.21 Acute and chronic respiratory failure with hypoxia; J44.0 Chronic obstructive pulmonary disease with (acute) lower respiratory infection; J44.1 Chronic obstructive pulmonary disease with (acute) exacerbation; K63.3 Ulcer of intestine; D50.0 Iron deficiency anemia secondary to blood loss (chronic); D72.1 Eosinophilia; F15.10 Other stimulant abuse, uncomplicated; F41.1 Generalized anxiety disorder; G89.29 Other chronic pain; K44.9 Diaphragmatic hernia without obstruction or gangrene; I10 Essential (primary) hypertension; Z87.11 Personal history of peptic ulcer disease; Z87.891 Personal history of nicotine dependence; Z90.710 Acquired absence of both cervix and uterus; Z23 Encounter for immunization; Z88.8 Allergy status to other drugs, medicaments and biological substances; Z90.49 Acquired absence of other specified parts of digestive tract; Z90.89 Acquired absence of other organs
CPT/HCPCS: 36415; 71045; 80048; 82040; 82272; 82728; 82962; 83540; 83550; 83605; 83735; 83880; 84100; 84145; 84484; 85025; 87040; 90686; 93005; 94640; 96365; 96375; G0378; J0456; J0696; J1815; J2920; J2930; J3475; J7030; J7050

== ENCOUNTER 2019-05-15 07:26 | Inpatient (IN) | payer MEDICAID ==
[~2019-05-15] VITALS: Ht 157.5 cm; Wt 74.0 kg
[2019-05-15] VITALS (11 sets, daily range): BP systolic 98–122; BP diastolic 70–81
[~2019-05-15 07:26] MED LIST changes: +ALBU18HF INH; +AZIT500T10 PO; +FERR-51 PO; +OLAN7.5T5 PO; +PROP10TA16 PO; +TIOT18CA INH
--- NOTE | 2019-05-15 07:50 | NUR ---
Pt ambulated back to room, smooth and steady gait, even and unlabored respirations, changed into gown and resting on gurney. Dr Marley in room at , assessing and disucssing plan of care. Pt call light within reach, denies additional needs at this time. WCTM.
[2019-05-15] MEDS ORDERED: ALBU90AE2 PO (07:57)
[2019-05-15] MEDS ORDERED: METH10SO PO (07:57)
[2019-05-15 08:29] LABS: MEAN CORPUSCULAR HEMOGLOBIN 22.9 pg (27.0-34.8); MEAN CORPUSCULAR HGB CONC 30.3 g/dL (32.4-35.8); MEAN CORPUSCULAR VOLUME 75.5 fL (80-100); MEAN PLATELET VOLUME 8.8 fL (7.4-10.4); PLATELET COUNT 397 x10^3/uL (130-400); RED BLOOD COUNT 3.01 x10^6/uL (3.82-5.3)
[2019-05-15 08:30] LABS: ALBUMIN 2.9 g/dL (3.4-5.0); ANION GAP 5 mmol/L (5-15); CALCIUM 7.9 mg/dL (8.5-10.1); CHLORIDE 110 mmol/L (98-107); CREATININE 0.73 mg/dL (0.55-1.02)
[2019-05-15] MEDS ORDERED: PANTOPRAZOLE 80 MG in SODIUM CHLORIDE 0.9% 50 ML IVPB ONE (08:33)
[2019-05-15] MEDS ORDERED: PANTOPRAZOLE 80 MG in SODIUM CHLORIDE 0.9% 100 ML IV SCH (08:33)
[2019-05-15 08:52] LABS: ANISOCYTOSIS 2+; BASOPHILS # (AUTO) 0.05 x10^3/uL (0-0.1); BASOPHILS % (AUTO) 1 % (0-1); EOSINOPHILS # (AUTO) 0.45 x10^3/uL (0-0.4); EOSINOPHILS % (AUTO) 7 % (1-7); LYMPHOCYTES # (AUTO) 1.13 x10^3/uL (1-3.4); LYMPHOCYTES % (AUTO) 17 % (22-44); MD MORPH REVIEW ONLY; MICROCYTOSIS 1+; MONOCYTES % (AUTO) 6 % (2-9); NEUTROPHILS # (AUTO) 4.64 x10^3/uL (1.8-6.8); NEUTROPHILS % (AUTO) 70 % (42-75)
[2019-05-15 08:53] LABS: <PLATELET ESTIMATE> ADEQUATE; <PLT MORPHOLOGY> NORMAL PLT MORPH; HYPOCHROMIA 2+; POLYCHROMASIA 1+
[2019-05-15] MEDS ORDERED: SODIUM CHLORIDE 0.9% 1,000ML IVBOLUS ONE (09:00)
--- NOTE | 2019-05-15 09:10 | NUR ---
pt resting in gurney, even and unlabored respirations, eyes closed, waiting on blood bank, NAD, call light within reach, WCTM.
[2019-05-15] MEDS ORDERED: ALBUTEROL HFA 90 MCG/SPRAY INH SCH (09:30)
[2019-05-15] MEDS ORDERED: morphine SULFATE 10 MG/ML, 1ML IVPush PRN (10:00)
--- NOTE | 2019-05-15 10:00 | NUR ---
pt consents blood transfusion, resting in gurney, even and unlabored respirations, NAD, call light within reach, denies additional needs at this time, consent sheet with chart. WCTM. waiting for blood to be prepared
[2019-05-15] MEDS: methylPREDNISolone SOD SUCC 40 MG/ML IV SCH ×2 (10:33→17:14)
[2019-05-15] MEDS: SODIUM CHLORIDE 0.9% 1,000 ML IV SCH ×2 (10:33→23:21)
--- NOTE | 2019-05-15 11:00 | NUR ---
Late Entry: Pt resting in gurney, even unlabored respriations, NAD, eyes closed, call light within reach, on monitor, WCTM.
--- NOTE | 2019-05-15 11:26 | NUR ---
pt transferring to floor, report given to Loan ANAND.
[2019-05-15] MEDS: IRON SUCROSE COMPLEX 100MG/5ML IV SCH (12:05)
[2019-05-15] MEDS ORDERED: ALBUTEROL HFA 90 MCG/SPRAY INH PRN (14:00)
[2019-05-15] MEDS: FERROUS SULFATE 325 MG TABLET PO SCH (17:14)
[2019-05-15] MEDS: OLANZAPINE 2.5 MG TABLET PO SCH (20:10)
[2019-05-16 01:45] VITALS: BP 116/72
[2019-05-16] MEDS: methylPREDNISolone SOD SUCC 40 MG/ML IV SCH ×3 (02:04→18:25)
[2019-05-16] MEDS ORDERED: METHADONE INTENSOL 10 MG/ML ORAL CONC PO SCH (06:00)
[2019-05-16] MEDS: PANTOPRAZOLE 40MG TABLET PO SCH (06:12)
[2019-05-16 06:17] LABS: ANION GAP 6 mmol/L (5-15); CALCIUM 8.6 mg/dL (8.5-10.1); CHLORIDE 111 mmol/L (98-107); CREATININE 0.54 mg/dL (0.55-1.02)
[2019-05-16 06:29] LABS: MEAN CORPUSCULAR HEMOGLOBIN 23.8 pg (27.0-34.8); MEAN CORPUSCULAR HGB CONC 30.5 g/dL (32.4-35.8); MEAN CORPUSCULAR VOLUME 77.9 fL (80-100); MEAN PLATELET VOLUME 8.6 fL (7.4-10.4); PLATELET COUNT 401 x10^3/uL (130-400); RED BLOOD COUNT 3.51 x10^6/uL (3.82-5.3); RED CELL DISTRIBUTION WIDTH 23.1 % (9.6-15.2)
[2019-05-16 06:51] LABS: BASOPHILS # (AUTO) 0.02 x10^3/uL (0-0.1); BASOPHILS % (AUTO) 0 % (0-1); EOSINOPHILS # (AUTO) 0.21 x10^3/uL (0-0.4); EOSINOPHILS % (AUTO) 3 % (1-7); LYMPHOCYTES # (AUTO) 0.87 x10^3/uL (1-3.4); LYMPHOCYTES % (AUTO) 11 % (22-44); MD SCAN; MONOCYTES # (AUTO) 0.03 x10^3/uL (0.2-0.8); MONOCYTES % (AUTO) 1 % (2-9); NEUTROPHILS # (AUTO) 6.71 x10^3/uL (1.8-6.8); NEUTROPHILS % (AUTO) 86 % (42-75)
[2019-05-16 07:16] VITALS: BP 122/75
[2019-05-16] MEDS: IRON SUCROSE COMPLEX 100MG/5ML IV SCH (08:42)
[2019-05-16] MEDS: AMOXICILLIN 500 MG CAPSULE PO SCH ×2 (08:43→20:57)
[2019-05-16] MEDS: CLARITHROMYCIN 500 MG TABLET PO SCH ×2 (08:43→20:57)
[2019-05-16] MEDS: PROPRANOLOL 10 MG TABLET PO SCH (08:43)
[2019-05-16] MEDS: FERROUS SULFATE 325 MG TABLET PO SCH ×2 (08:43→18:25)
[2019-05-16] MEDS ORDERED: METHADONE 40 MG TABLET.SOL PO SCH (09:00)
[2019-05-16] MEDS ORDERED: ALBUTEROL SULFATE 2.5 MG/3 ML ONE (09:02)
[2019-05-16] MEDS: ALBUTEROL SULFATE 2.5 MG/3 ML NPPB PRN (09:05)
[2019-05-16] MEDS ORDERED: OMNIPAQUE 350 MG/ML, 100ML BOTTLE ONE (10:00)
[2019-05-16 10:54] LABS: OCCULT BLOOD POSITIVE (NEGATIVE)
[2019-05-16 12:16] VITALS: BP 123/77
[2019-05-16] MEDS: SODIUM CHLORIDE 0.9% 1,000 ML IV SCH (15:53)
[2019-05-16 20:51] VITALS: BP 146/84
[2019-05-16] MEDS: OLANZAPINE 2.5 MG TABLET PO SCH (20:58)
[2019-05-17 00:32] VITALS: BP 134/82
[2019-05-17] MEDS: methylPREDNISolone SOD SUCC 40 MG/ML IV SCH ×2 (02:16→08:46)
[2019-05-17] MEDS: SODIUM CHLORIDE 0.9% 1,000 ML IV SCH (04:38)
[2019-05-17 05:27] LABS: CHLORIDE 108 mmol/L (98-107)
[2019-05-17 05:35] LABS: ANION GAP 5 mmol/L (5-15); CALCIUM 8.7 mg/dL (8.5-10.1); CREATININE 0.76 mg/dL (0.55-1.02)
[2019-05-17 05:44] LABS: MEAN CORPUSCULAR HEMOGLOBIN 23.8 pg (27.0-34.8); MEAN CORPUSCULAR HGB CONC 30.5 g/dL (32.4-35.8); MEAN CORPUSCULAR VOLUME 78.1 fL (80-100); PLATELET COUNT 396 x10^3/uL (130-400); RED BLOOD COUNT 3.69 x10^6/uL (3.82-5.3); RED CELL DISTRIBUTION WIDTH 24.5 % (9.6-15.2)
[2019-05-17] MEDS: PANTOPRAZOLE 40MG TABLET PO SCH (05:53)
[2019-05-17] MEDS ORDERED: METHADONE 10 MG TABLET PO SCH (06:00)
[2019-05-17 06:19] LABS: MD YES
[2019-05-17 06:26] LABS: BAND#(MANUAL) 0.21 x10^3/uL; BANDS%(MANUAL) 1 % (0-7); LYMPH#(MANUAL) 1.06 x10^3/uL (1-3.4); LYMPHS% (MANUAL) 5 % (22-44); NRBC % (MANUAL) 1 % (0-1); SEG#(MANUAL) 19.83 x10^3/uL (1.8-6.8); SEGS% (MANUAL) 94 % (42-75)
[2019-05-17 06:27] LABS: ANISOCYTOSIS 2+
[2019-05-17 06:28] LABS: HYPOCHROMIA 2+; MICROCYTOSIS 1+; POLYCHROMASIA 1+; TARGET CELLS 1+
[2019-05-17 06:29] LABS: <PLATELET ESTIMATE> ADEQUATE; LARGE PLATELETS 1+; TEAR DROPS 1+
[2019-05-17 07:01] VITALS: BP 138/82
[2019-05-17] MEDS ORDERED: CLAR-14 PO (07:44)
[2019-05-17] MEDS ORDERED: ALBU90AE2 PO (07:44)
[2019-05-17] MEDS ORDERED: AMOX-291 PO (07:44)
[2019-05-17] MEDS ORDERED: FERR-51 PO (07:44)
[2019-05-17] MEDS ORDERED: PANT40TA5 PO (07:44)
[2019-05-17] MEDS ORDERED: ALBU1.25 NEB (07:44)
[2019-05-17] MEDS ORDERED: PRED20TA PO (07:44)
[2019-05-17] MEDS: CLARITHROMYCIN 500 MG TABLET PO SCH (08:38)
[2019-05-17] MEDS: IRON SUCROSE COMPLEX 100MG/5ML IV SCH (08:38)
[2019-05-17] MEDS: AMOXICILLIN 500 MG CAPSULE PO SCH (08:39)
[2019-05-17] MEDS: PROPRANOLOL 10 MG TABLET PO SCH (08:39)
[2019-05-17] MEDS: FERROUS SULFATE 325 MG TABLET PO SCH (08:39)
[2019-05-17] MEDS: ALBUTEROL SULFATE 2.5 MG/3 ML NPPB PRN (09:09)
== END 2019-05-17 10:11 | disposition home or self-care (01) | DRG 811 ==
LOC: ED 07:41 → EDIP 09:14 → 4EST 11:31
PROVIDERS: ADMIT Internal Medicine Infectious Disease; ATTEND Internal Medicine Infectious Disease
PROC: 30233N1 Transfusion of Nonautologous Red Blood Cells into Peripheral Vein, Percutaneous Approach (ICD-10-PCS; principal; 2019-05-15)
DX: D50.9 Iron deficiency anemia, unspecified (principal); J96.01 Acute respiratory failure with hypoxia; J44.1 Chronic obstructive pulmonary disease with (acute) exacerbation; I10 Essential (primary) hypertension; F41.1 Generalized anxiety disorder; G89.29 Other chronic pain; D72.1 Eosinophilia; G43.909 Migraine, unspecified, not intractable, without status migrainosus; F17.210 Nicotine dependence, cigarettes, uncomplicated; B96.81 Helicobacter pylori [H. pylori] as the cause of diseases classified elsewhere; Z87.11 Personal history of peptic ulcer disease; Z90.710 Acquired absence of both cervix and uterus; Z90.49 Acquired absence of other specified parts of digestive tract; Z90.89 Acquired absence of other organs; Z79.891 Long term (current) use of opiate analgesic; Z79.899 Other long term (current) drug therapy
CPT/HCPCS: 36415; 87338; 96374; 96375; 99285; J7613; 36430; 71045; 74177; 80048; 82040; 82272; 82728; 83540; 83550; 85014; 85018; 85025; 86850; 86900; 86923; 93005; 94640; G0378; J1756; Q9967; C9113; J2920; J7030; J7512; P9016

== ENCOUNTER 2019-10-18 10:50 | Inpatient (IN) | payer MEDICAID ==
[~2019-10-18] VITALS: Ht 157.5 cm; Wt 76.8 kg
[2019-10-18] VITALS (10 sets, daily range): BP systolic 95–148; BP diastolic 65–83
[~2019-10-18 10:50] MED LIST changes: +ALBU1.25 NEB; +ALBU90AE2 PO; +AMOX-291 PO; +CLAR-14 PO; -PANT20TA3 PO; +PANT20TA4 PO; -PANT40TA5 PO; +PANT40TA6 PO
--- NOTE | 2019-10-18 11:11 | NUR ---
PT STATES SHE'S "DUE FOR A BLOOD TRANSFUSION, BY THE WAY I FEEL. I HAVEN'T HAD ONE IN OVER 6 MONTHS". PT STATES SHE HAS A BLEEDING ULCER, BUT HAS NOT FOLLOWED UP WITH GI. PT CONNECTED TO MONITORING. CALL LIGHT IN REACH.
[2019-10-18] MEDS ORDERED: PANTOPRAZOLE 80 MG in SODIUM CHLORIDE 0.9% 50 ML IVPB ONE (11:33)
[2019-10-18] MEDS ORDERED: METOCLOPRAMIDE 5 MG/ML, 2ML ONE (11:43)
--- NOTE | 2019-10-18 11:50 | NUR ---
MED REQUESTED FROM PHARMACY
[2019-10-18] MEDS ORDERED: METOCLOPRAMIDE 5 MG/ML, 2ML IVPush ONE (12:00)
--- NOTE | 2019-10-18 12:01 | NUR ---
PIV PLACED, LABS DRAWN AND COLLECTED BY ZIPPER SEWING MACHINE OPERATOR. ALGORITHM DESIGN ENGINEER PER APR. PT CONNECTED TO MONITORING. CALL LIGHT IN REACH. KENAN.
[2019-10-18 12:17] LABS: MEAN CORPUSCULAR HEMOGLOBIN 14.3 pg (27.0-34.8); MEAN CORPUSCULAR VOLUME 53.8 fL (80-100); MEAN PLATELET VOLUME 9.7 fL (7.4-10.4); PLATELET COUNT 446 x10^3/uL (130-400); RED BLOOD COUNT 3.06 x10^6/uL (3.82-5.3)
[2019-10-18 12:18] LABS: MD YES
[2019-10-18 12:19] LABS: ALANINE AMINOTRANSFERASE 11 U/L (12-78); ALBUMIN 3.4 g/dL (3.4-5.0); ANION GAP 6 mmol/L (5-15); CALCIUM 8.7 mg/dL (8.5-10.1); CHLORIDE 106 mmol/L (98-107); CREATININE 0.78 mg/dL (0.55-1.02)
[2019-10-18 12:21] LABS: ALKALINE PHOSPHATASE 96 U/L (45-117); BILIRUBIN,TOTAL 0.3 mg/dL (0.2-1.0); TOTAL PROTEIN 7.4 g/dL (6.4-8.2)
[2019-10-18 12:24] LABS: BASOS#(MANUAL) 0.08 x10^3/uL (0-0.1); BASOS% (MANUAL) 1 % (0-1); EOS#(MANUAL) 0.24 x10^3/uL (0.0-0.4); EOS% (MANUAL) 3 % (1-7); INTERNATIONAL NORMALIZED RATIO 0.95 (0.93-1.1); LYMPH#(MANUAL) 2.43 x10^3/uL (1-3.4); LYMPHS% (MANUAL) 30 % (22-44); MONOS#(MANUAL) 0.41 x10^3/uL (0.3-2.7); MONOS% (MANUAL) 5 % (2-9); PROTHROMBIN TIME 9.8 Seconds (9.6-11.5); SEG#(MANUAL) 4.94 x10^3/uL (1.8-6.8); SEGS% (MANUAL) 61 % (42-75)
[2019-10-18 12:27] LABS: MEAN CORPUSCULAR HGB CONC 26.6 g/dL (32.4-35.8)
[2019-10-18 12:31] LABS: ANISOCYTOSIS 2+; HYPOCHROMIA 3+; MICROCYTOSIS 3+; OVALOCYTES 1+
[2019-10-18 12:32] LABS: <PLATELET ESTIMATE> INCREASED; LARGE PLATELETS 1+; TEAR DROPS 1+
[2019-10-18 12:33] LABS: POLYCHROMASIA 1+
[2019-10-18] MEDS ORDERED: TEMAZEPAM 15 MG CAPSULE PO PRN (13:30)
[2019-10-18] MEDS ORDERED: ONDANSETRON 2MG/ML, 2ML IVPush PRN (13:30)
[2019-10-18] MEDS ORDERED: ONDANSETRON ODT 4 MG PO PRN (13:30)
--- NOTE | 2019-10-18 13:30 | NUR ---
BLOOD STARTED AND VERIFIED WITH SECOND RN. VSS AFTER FIRST 15 MIN. PT DENIES S/SX ADVERSE REACTION.
--- NOTE | 2019-10-18 13:35 | NUR ---
PER DR DAVIS, OK TO CANCEL H&H SCHEDULED FOR NOW. CONTINUE Q6HR ORDERED. LAB NOTIFIED
[2019-10-18] MEDS: PANTOPRAZOLE 80 MG in SODIUM CHLORIDE 0.9% 100 ML IV SCH ×2 (14:12→23:00)
--- NOTE | 2019-10-18 14:30 | NUR ---
REPORT GIVEN TO BAILEY ANAND. BLOOD STILL INFUSING.
[2019-10-18] MEDS ORDERED: ALBUTEROL SULFATE 200 PUFFS/8.5 GR INH INH PRN (16:00)
--- NOTE | 2019-10-18 16:07 | NUR ---
LATE NOTE: THIS TECH TRANSPORTED PT
[2019-10-18] MEDS ORDERED: OLANZAPINE 5 MG TABLET PO SCH (21:00)
[2019-10-19] VITALS (9 sets, daily range): BP systolic 100–115; BP diastolic 63–70
[2019-10-19 07:14] LABS: ALANINE AMINOTRANSFERASE 14 U/L (12-78); ALBUMIN 2.9 g/dL (3.4-5.0); ANION GAP 5 mmol/L (5-15); CALCIUM 8.1 mg/dL (8.5-10.1); CHLORIDE 108 mmol/L (98-107)
[2019-10-19 07:17] LABS: ALKALINE PHOSPHATASE 84 U/L (45-117); BILIRUBIN,TOTAL 1.3 mg/dL (0.2-1.0); TOTAL PROTEIN 6.2 g/dL (6.4-8.2)
[2019-10-19] MEDS ORDERED: METHADONE 10 MG TABLET ONE (07:22)
[2019-10-19] MEDS ORDERED: PROPRANOLOL 10 MG TABLET PO SCH (09:00)
[2019-10-19] MEDS ORDERED: METHADONE INTENSOL 10 MG/ML ORAL CONC PO SCH (09:00)
== END 2019-10-19 08:09 | disposition left against medical advice (07) | DRG 378 ==
LOC: ED 11:58 → SUATTDRO 13:00 → EDIP 13:09 → 4WST 13:45 → EDIP 13:46 → 4WST 14:43
PROVIDERS: ADMIT Family Medicine; ATTEND Internal Medicine
PROC: 30233N1 Transfusion of Nonautologous Red Blood Cells into Peripheral Vein, Percutaneous Approach (ICD-10-PCS; principal; 2019-10-18)
DX: K92.2 Gastrointestinal hemorrhage, unspecified (principal); F11.20 Opioid dependence, uncomplicated; D50.0 Iron deficiency anemia secondary to blood loss (chronic); I10 Essential (primary) hypertension; J44.9 Chronic obstructive pulmonary disease, unspecified; F99 Mental disorder, not otherwise specified; Z86.19 Personal history of other infectious and parasitic diseases; Z87.11 Personal history of peptic ulcer disease; Z90.710 Acquired absence of both cervix and uterus; Z90.49 Acquired absence of other specified parts of digestive tract; Z91.19 Patient's noncompliance with other medical treatment and regimen; Z03.818 Encounter for observation for suspected exposure to other biological agents ruled out; Z83.3 Family history of diabetes mellitus; Z82.49 Family history of ischemic heart disease and other diseases of the circulatory system
CPT/HCPCS: 36415; 80053; 83690; 85018; 85025; 85610; 85730; 86850; 86900; 86923; 87635; 93005; G0378; J2270; C9113; J2765; P9016

== ENCOUNTER 2019-12-24 11:19 | Inpatient (IN) | payer MEDICAID ==
[2019-12-23 20:53] VITALS: BP 110/76
[~2019-12-24] VITALS: Ht 157.5 cm; Wt 80.5 kg
[2019-12-24] VITALS (10 sets, daily range): BP systolic 98–124; BP diastolic 51–76
[2019-12-24] MEDS ORDERED: LIDOCAINE-MPF 1%, 5ML INFIL ONE (12:00)
[2019-12-24 12:40] LABS: BASOPHILS % (AUTO) 1 % (0-1); EOSINOPHILS % (AUTO) 1 % (1-7); LYMPHOCYTES % (AUTO) 13 % (22-44); MEAN CORPUSCULAR HEMOGLOBIN 15.4 pg (27.0-34.8); MONOCYTES % (AUTO) 7 % (2-9); NEUTROPHILS % (AUTO) 78 % (42-75); PLATELET COUNT 344 x10^3/uL (130-400); RED BLOOD COUNT 3.27 x10^6/uL (3.82-5.3); RED CELL DISTRIBUTION WIDTH 22.1 % (9.6-15.2)
[2019-12-24 12:41] LABS: MEAN CORPUSCULAR HGB CONC 27.8 g/dL (32.4-35.8)
[2019-12-24 12:52] LABS: ANISOCYTOSIS 2+; HYPOCHROMIA 2+; MD MORPH REVIEW ONLY; MICROCYTOSIS 2+; OVALOCYTES 1+; POLYCHROMASIA 1+; TEAR DROPS 1+
[2019-12-24 12:53] LABS: <PLATELET ESTIMATE> ADEQUATE; LARGE PLATELETS 1+; SCHISTOCYTES 1+
[2019-12-24 12:58] LABS: ANION GAP 6 mmol/L (5-15); CALCIUM 8.2 mg/dL (8.5-10.1); CHLORIDE 104 mmol/L (98-107)
[2019-12-24 12:59] LABS: ALANINE AMINOTRANSFERASE 13 U/L (12-78); ALKALINE PHOSPHATASE 101 U/L (45-117); BILIRUBIN,TOTAL 0.3 mg/dL (0.2-1.0); TOTAL PROTEIN 7.4 g/dL (6.4-8.2)
[2019-12-24] MEDS ORDERED: PIPERACILLIN/TAZO/PMX 4.5GM 100 ML IVPB ONE (13:30)
[2019-12-24] MEDS ORDERED: VANCOMYCIN PER PHARMACY MC ONE (13:30)
[2019-12-24] MEDS ORDERED: MORPHINE SULFATE 4 MG/ML, 1ML IVPush PRN (13:30)
[2019-12-24] MEDS ORDERED: ONDANSETRON 2MG/ML, 2ML IVPush ONE (13:30)
[2019-12-24] MEDS ORDERED: LIDOCAINE-MPF 1%, 5ML ONE (13:45)
[2019-12-24] MEDS ORDERED: ONDANSETRON 2MG/ML, 2ML ONE (13:46)
[2019-12-24] MEDS ORDERED: MORPHINE SULFATE 4 MG/ML, 1ML ONE (13:46)
[2019-12-24] MEDS ORDERED: VANCOMYCIN 1,800 MG in SODIUM CHLORIDE 0.9% 250 ML IV ONE (14:00)
[2019-12-24] MEDS ORDERED: SODIUM CHLORIDE FLUSH 10ML SYR IVF PRN (14:30)
--- NOTE | 2019-12-24 15:25 | NUR ---
attempted to call report 3 times. placed on extended hold 2 times and asked for line crew supervisor the third. was told by that line crew supervisor states nurse will call back for report.
[2019-12-24] MEDS ORDERED: ALBUTEROL SULFATE PO PRN (17:30)
[2019-12-24] MEDS ORDERED: MELATONIN 5 MG TABLET PO PRN (17:30)
[2019-12-24] MEDS ORDERED: ONDANSETRON 2MG/ML, 2ML IVPush PRN (17:30)
[2019-12-24] MEDS ORDERED: ACETAMINOPHEN 325 MG TABLET PO PRN (17:30)
[2019-12-24 19:57] LABS: D-DIMER 0.44 ug/mlFEU (0.00-0.52); INTERNATIONAL NORMALIZED RATIO 0.98 (0.93-1.1); PROTHROMBIN TIME 10.4 Seconds (9.6-11.5)
[2019-12-24 20:28] LABS: FREE T4 (FREE THYROXINE) 1.33 ng/dL (0.76-1.46)
[2019-12-24 20:31] LABS: HCT (SEDRATE) 26.9 % (34.6-47.8)
[2019-12-24] MEDS: LINEZOLID 600 MG TABLET PO SCH (20:47)
[2019-12-24] MEDS: NICOTINE 21 MG/24 HR PATCH.TD24 TD SCH (21:00)
[2019-12-24] MEDS: OLANZAPINE 2.5 MG TABLET PO SCH (21:00)
[2019-12-24] MEDS ORDERED: OLANZAPINE 5 MG TABLET ONE (21:12)
[2019-12-25] MEDS: PIPERACILLIN/TAZO/PMX 3.375GM 50 ML IV SCH ×5 (00:02→23:53)
[2019-12-25] MEDS: morphine SULFATE 10 MG/ML, 1ML IVPush PRN ×3 (00:03→20:27)
[2019-12-25] MEDS: ALBUTEROL HFA 90 MCG/SPRAY INH PRN ×3 (00:08→22:57)
[2019-12-25] MEDS ORDERED: OMNIPAQUE 350 MG/ML, 100ML BOTTLE ONE (00:21)
[2019-12-25] MEDS: LACTATED RINGERS 1,000 ML IV SCH ×2 (00:46→14:50)
[2019-12-25 02:24] VITALS: BP 98/61
[2019-12-25] MEDS ORDERED: METHADONE 10 MG TABLET ONE (05:41)
[2019-12-25] MEDS: PANTOPRAZOLE 40MG TABLET PO SCH (05:46)
[2019-12-25 06:08] LABS: MEAN CORPUSCULAR HEMOGLOBIN 20.8 pg (27.0-34.8); MEAN CORPUSCULAR HGB CONC 30.7 g/dL (32.4-35.8); MEAN PLATELET VOLUME 8.8 fL (7.4-10.4); PLATELET COUNT 279 x10^3/uL (130-400); RED CELL DISTRIBUTION WIDTH 34.5 % (9.6-15.2)
[2019-12-25 06:24] LABS: ANION GAP 5 mmol/L (5-15); CALCIUM 7.8 mg/dL (8.5-10.1); CHLORIDE 110 mmol/L (98-107)
[2019-12-25 06:48] LABS: MD YES
[2019-12-25 06:49] LABS: LYMPHS% (MANUAL) 16 % (22-44); MONOS#(MANUAL) 0.63 x10^3/uL (0.3-2.7); MONOS% (MANUAL) 5 % (2-9); SEG#(MANUAL) 9.88 x10^3/uL (1.8-6.8); SEGS% (MANUAL) 79 % (42-75)
[2019-12-25 06:50] LABS: ANISOCYTOSIS 2+; MICROCYTOSIS 2+; OVALOCYTES 1+; POLYCHROMASIA 1+; TEAR DROPS 1+
[2019-12-25 06:51] LABS: <PLATELET ESTIMATE> ADEQUATE; <PLT MORPHOLOGY> NORMAL PLT MORPH; HYPOCHROMIA 3+
[2019-12-25 07:25] VITALS: BP 101/65
[2019-12-25] MEDS ORDERED: METHADONE 10 MG TABLET PO SCH (09:00)
[2019-12-25] MEDS: NICOTINE 21 MG/24 HR PATCH.TD24 TD SCH (09:46)
[2019-12-25] MEDS: IRON SUCROSE COMPLEX 100MG/5ML IV SCH (09:47)
[2019-12-25] MEDS: LINEZOLID 600 MG TABLET PO SCH ×2 (09:48→20:27)
[2019-12-25 13:59] VITALS: BP 103/68
[2019-12-25 18:53] VITALS: BP 123/78
[2019-12-25] MEDS: OLANZAPINE 2.5 MG TABLET PO SCH (20:27)
[2019-12-26 00:32] VITALS: BP 123/80
[2019-12-26] MEDS: LACTATED RINGERS 1,000 ML IV SCH ×3 (01:20→23:20)
[2019-12-26] MEDS: morphine SULFATE 10 MG/ML, 1ML IVPush PRN ×5 (05:10→20:55)
[2019-12-26] MEDS: PANTOPRAZOLE 40MG TABLET PO SCH (05:58)
[2019-12-26] MEDS: PIPERACILLIN/TAZO/PMX 3.375GM 50 ML IV SCH ×2 (05:58→12:07)
[2019-12-26] MEDS: METHADONE 10 MG TABLET PO SCH (05:58)
[2019-12-26 08:16] LABS: BASOPHILS % (AUTO) 1 % (0-1); EOSINOPHILS % (AUTO) 4 % (1-7); LYMPHOCYTES % (AUTO) 16 % (22-44); MEAN CORPUSCULAR HEMOGLOBIN 20.8 pg (27.0-34.8); MEAN CORPUSCULAR HGB CONC 30.3 g/dL (32.4-35.8); MEAN PLATELET VOLUME 9.3 fL (7.4-10.4); MONOCYTES % (AUTO) 9 % (2-9); NEUTROPHILS % (AUTO) 71 % (42-75); PLATELET COUNT 310 x10^3/uL (130-400); RED BLOOD COUNT 4.29 x10^6/uL (3.82-5.3)
[2019-12-26 08:28] LABS: ALANINE AMINOTRANSFERASE 12 U/L (12-78); ALBUMIN 2.3 g/dL (3.4-5.0); ANION GAP 5 mmol/L (5-15); CALCIUM 8.1 mg/dL (8.5-10.1); CHLORIDE 114 mmol/L (98-107); CREATININE 0.82 mg/dL (0.55-1.02)
[2019-12-26 08:30] LABS: ALKALINE PHOSPHATASE 70 U/L (45-117); BILIRUBIN,TOTAL 0.8 mg/dL (0.2-1.0); TOTAL PROTEIN 6.2 g/dL (6.4-8.2)
[2019-12-26] MEDS: IRON SUCROSE COMPLEX 100MG/5ML IV SCH (08:46)
[2019-12-26] MEDS: LINEZOLID 600 MG TABLET PO SCH (08:46)
[2019-12-26] MEDS: NICOTINE 21 MG/24 HR PATCH.TD24 TD SCH (08:47)
[2019-12-26 08:54] LABS: MD SCAN
[2019-12-26] MEDS: ALBUTEROL HFA 90 MCG/SPRAY INH PRN ×3 (09:06→21:32)
[2019-12-26 09:50] VITALS: BP 134/82
[2019-12-26 14:02] VITALS: BP 127/86
[2019-12-26] MEDS: CEFAZOLIN PMX 1GM/50ML 50 ML IV SCH ×2 (16:14→23:20)
[2019-12-26 18:35] VITALS: BP 151/88
[2019-12-26] MEDS: OLANZAPINE 2.5 MG TABLET PO SCH (23:13)
[2019-12-27] MEDS: morphine SULFATE 10 MG/ML, 1ML IVPush PRN ×7 (00:03→23:34)
[2019-12-27 01:08] VITALS: BP 143/90
[2019-12-27] MEDS: ALBUTEROL HFA 90 MCG/SPRAY INH PRN (03:34)
[2019-12-27] MEDS: METHADONE 10 MG TABLET PO SCH (05:57)
[2019-12-27] MEDS: PANTOPRAZOLE 40MG TABLET PO SCH (05:57)
[2019-12-27 07:03] VITALS: BP 143/88
[2019-12-27] MEDS: LACTATED RINGERS 1,000 ML IV SCH ×2 (08:09→19:38)
[2019-12-27] MEDS: IRON SUCROSE COMPLEX 100MG/5ML IV SCH (08:10)
[2019-12-27] MEDS: CEFAZOLIN PMX 1GM/50ML 50 ML IV SCH ×3 (08:10→23:34)
[2019-12-27] MEDS: NICOTINE 21 MG/24 HR PATCH.TD24 TD SCH (08:10)
[2019-12-27 12:28] VITALS: BP 158/94
[2019-12-27] MEDS: OLANZAPINE 2.5 MG TABLET PO SCH (19:38)
[2019-12-27 19:57] VITALS: BP 127/82
[2019-12-28 03:47] VITALS: BP 167/76
[2019-12-28 05:32] LABS: BASOPHILS % (AUTO) 1 % (0-1); EOSINOPHILS % (AUTO) 3 % (1-7); LYMPHOCYTES % (AUTO) 26 % (22-44); MEAN CORPUSCULAR HEMOGLOBIN 21.5 pg (27.0-34.8); MEAN CORPUSCULAR HGB CONC 31.3 g/dL (32.4-35.8); MEAN PLATELET VOLUME 8.7 fL (7.4-10.4); MONOCYTES % (AUTO) 7 % (2-9); NEUTROPHILS % (AUTO) 63 % (42-75); PLATELET COUNT 366 x10^3/uL (130-400); RED BLOOD COUNT 4.49 x10^6/uL (3.82-5.3); RED CELL DISTRIBUTION WIDTH 37.3 % (9.6-15.2)
[2019-12-28] MEDS: METHADONE 10 MG TABLET PO SCH (05:33)
[2019-12-28] MEDS: PANTOPRAZOLE 40MG TABLET PO SCH (05:33)
[2019-12-28] MEDS: morphine SULFATE 10 MG/ML, 1ML IVPush PRN ×5 (05:34→23:25)
[2019-12-28 05:38] LABS: ALANINE AMINOTRANSFERASE 28 U/L (12-78); ALBUMIN 2.5 g/dL (3.4-5.0); ANION GAP 7 mmol/L (5-15); CALCIUM 8.5 mg/dL (8.5-10.1); CHLORIDE 108 mmol/L (98-107)
[2019-12-28 05:43] LABS: ALKALINE PHOSPHATASE 74 U/L (45-117); BILIRUBIN,TOTAL 0.5 mg/dL (0.2-1.0); TOTAL PROTEIN 6.8 g/dL (6.4-8.2)
[2019-12-28 06:23] LABS: MD SCAN
[2019-12-28] MEDS ORDERED: hydrALAzine 20 MG/ML, 1ML IV PRN (06:30)
[2019-12-28] MEDS ORDERED: POTASSIUM CHLORIDE 20 MEQ TAB.ER.PRT PO ONE (07:00)
[2019-12-28 07:03] VITALS: BP 131/81
[2019-12-28] MEDS: NICOTINE 21 MG/24 HR PATCH.TD24 TD SCH (08:30)
[2019-12-28] MEDS: IRON SUCROSE COMPLEX 100MG/5ML IV SCH (08:30)
[2019-12-28] MEDS: CEFAZOLIN PMX 1GM/50ML 50 ML IV SCH ×3 (08:31→23:24)
[2019-12-28] MEDS: LACTATED RINGERS 1,000 ML IV SCH ×2 (09:00→21:35)
[2019-12-28 14:20] VITALS: BP 137/93
[2019-12-28 20:05] VITALS: BP 128/88
[2019-12-28] MEDS: OLANZAPINE 2.5 MG TABLET PO SCH (20:18)
[2019-12-29 01:05] VITALS: BP 118/79
[2019-12-29] MEDS: morphine SULFATE 10 MG/ML, 1ML IVPush PRN ×3 (04:03→12:39)
[2019-12-29] MEDS: METHADONE 10 MG TABLET PO SCH (05:22)
[2019-12-29] MEDS: PANTOPRAZOLE 40MG TABLET PO SCH (05:22)
[2019-12-29 06:43] LABS: BASOPHILS % (AUTO) 1 % (0-1); EOSINOPHILS % (AUTO) 3 % (1-7); LYMPHOCYTES % (AUTO) 34 % (22-44); MEAN CORPUSCULAR HEMOGLOBIN 21.7 pg (27.0-34.8); MEAN CORPUSCULAR HGB CONC 30.6 g/dL (32.4-35.8); MEAN PLATELET VOLUME 8.7 fL (7.4-10.4); MONOCYTES % (AUTO) 9 % (2-9); NEUTROPHILS % (AUTO) 53 % (42-75); PLATELET COUNT 364 x10^3/uL (130-400); RED BLOOD COUNT 4.25 x10^6/uL (3.82-5.3); RED CELL DISTRIBUTION WIDTH 37.9 % (9.6-15.2)
[2019-12-29 06:47] LABS: ALBUMIN 2.5 g/dL (3.4-5.0); ANION GAP 6 mmol/L (5-15); CALCIUM 8.1 mg/dL (8.5-10.1); CHLORIDE 109 mmol/L (98-107)
[2019-12-29 06:50] LABS: ALANINE AMINOTRANSFERASE 35 U/L (12-78); ALKALINE PHOSPHATASE 75 U/L (45-117); BILIRUBIN,TOTAL 0.2 mg/dL (0.2-1.0); CREATININE 0.88 mg/dL (0.55-1.02); TOTAL PROTEIN 6.6 g/dL (6.4-8.2)
[2019-12-29 07:11] VITALS: BP 125/80
[2019-12-29] MEDS: CEFAZOLIN PMX 1GM/50ML 50 ML IV SCH (07:17)
[2019-12-29] MEDS: IRON SUCROSE COMPLEX 100MG/5ML IV SCH (07:46)
[2019-12-29] MEDS: NICOTINE 21 MG/24 HR PATCH.TD24 TD SCH (07:47)
[2019-12-29] MEDS ORDERED: AMOX1TAB64 PO (09:04)
[2019-12-29] MEDS ORDERED: ACID1TAB3 PO (09:04)
[2019-12-29] MEDS ORDERED: FERR-51 PO (09:04)
[2019-12-29 10:26] LABS: MD SCAN
== END 2019-12-29 13:27 | disposition home or self-care (01) | DRG 872 ==
LOC: ED 14:39 → 3N 15:53 → ED 16:20 → EDIP 16:21 → 3N 16:58 → DCLOUNGE 12-29 13:19
PROVIDERS: ADMIT Family Medicine; ATTEND Family Medicine
PROC: 0Y9C0ZZ Drainage of Right Upper Leg, Open Approach (ICD-10-PCS; principal; 2019-12-24)
PROC: 30233N1 Transfusion of Nonautologous Red Blood Cells into Peripheral Vein, Percutaneous Approach (ICD-10-PCS; 2019-12-24)
DX: A41.9 Sepsis, unspecified organism (principal); L02.416 Cutaneous abscess of left lower limb; L03.116 Cellulitis of left lower limb; D63.8 Anemia in other chronic diseases classified elsewhere; E87.6 Hypokalemia; F11.10 Opioid abuse, uncomplicated; F17.210 Nicotine dependence, cigarettes, uncomplicated; F41.1 Generalized anxiety disorder; I10 Essential (primary) hypertension; J44.9 Chronic obstructive pulmonary disease, unspecified; Z63.8 Other specified problems related to primary support group; Z87.11 Personal history of peptic ulcer disease; Z90.710 Acquired absence of both cervix and uterus; Z88.8 Allergy status to other drugs, medicaments and biological substances
CPT/HCPCS: 10060; 36415; 71045; 80048; 80053; 82550; 82728; 83010; 83605; 83615; 83735; 84100; 84439; 84443; 85014; 85025; 85379; 85610; 85651; 86850; 86900; 86923; 87040; 87070; 87077; 87147; 87186; 87205; 93005; 93306; 96365; 96367; 96375; 99285; G0378; J0690; J1756; J2405; J2543; J3370; Q9967; J2270; J7050; J7120; P9016

== ENCOUNTER 2020-03-11 11:32 | Emergency (ER) | payer MEDICAID ==
[~2020-03-11] VITALS: Ht 157.5 cm; Wt 65.3 kg
[~2020-03-11 11:32] MED LIST changes: +ACID1TAB3 PO; -CLIN300C8 PO; +CLIN300C9 PO; -NICO-487 TD; +NICO-587 TD
[2020-03-11 12:32] LABS: BASOPHILS % (AUTO) 1 % (0-1); EOSINOPHILS % (AUTO) 4 % (1-7); LYMPHOCYTES % (AUTO) 38 % (22-44); MEAN CORPUSCULAR HEMOGLOBIN 18.5 pg (27.0-34.8); MEAN PLATELET VOLUME 8.6 fL (7.4-10.4); MONOCYTES % (AUTO) 10 % (2-9); NEUTROPHILS % (AUTO) 47 % (42-75); PLATELET COUNT 282 x10^3/uL (130-400); RED BLOOD COUNT 3.58 x10^6/uL (3.82-5.3); RED CELL DISTRIBUTION WIDTH 24.1 % (9.6-15.2)
[2020-03-11 13:02] LABS: MEAN CORPUSCULAR HGB CONC 29.7 g/dL (32.4-35.8)
[2020-03-11 13:05] LABS: MD MORPH REVIEW ONLY
[2020-03-11 13:06] LABS: ANISOCYTOSIS 2+; HYPOCHROMIA 2+; MICROCYTOSIS 2+; OVALOCYTES 1+
[2020-03-11 13:07] LABS: <PLATELET ESTIMATE> ADEQUATE; <PLT MORPHOLOGY> NORMAL PLT MORPH; TEAR DROPS 1+
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
--- NOTE | 2020-03-11 15:40 | NUR ---
pt pulled her iv out, another started.
[2020-03-11 15:43] VITALS: BP 142/54
--- NOTE | 2020-03-11 15:43 | NUR ---
pt yelling that she wants to go home, educated pt that after her blood is done she can go home
--- NOTE | 2020-03-11 15:56 | NUR ---
checked blood with Mita ANAND
[2020-03-11 16:09] VITALS: BP 124/74
--- NOTE | 2020-03-11 16:09 | NUR ---
MD ANGUIANO IN ROOM TO TALK TO PT, PT AGREES TO STAY
[2020-03-11 16:17] VITALS: BP 126/88
[2020-03-11 17:01] VITALS: BP 124/54
[2020-03-11 17:06] VITALS: BP 124/74
== END 2020-03-11 17:12 | disposition home or self-care (01) ==
LOC: ED 11:57
DX: S00.83XA Contusion of other part of head, initial encounter (principal); D50.0 Iron deficiency anemia secondary to blood loss (chronic); F15.129 Other stimulant abuse with intoxication, unspecified; F11.129 Opioid abuse with intoxication, unspecified; R42 Dizziness and giddiness; I10 Essential (primary) hypertension; J44.9 Chronic obstructive pulmonary disease, unspecified; G43.909 Migraine, unspecified, not intractable, without status migrainosus; F17.200 Nicotine dependence, unspecified, uncomplicated; Z90.49 Acquired absence of other specified parts of digestive tract; Z90.710 Acquired absence of both cervix and uterus; Z90.89 Acquired absence of other organs; Y04.0XXA Assault by unarmed brawl or fight, initial encounter; Y93.89 Activity, other specified; Y92.098 Other place in other non-institutional residence as the place of occurrence of the external cause; Y99.8 Other external cause status
CPT/HCPCS: 36415; 36430; 70450; 85025; 86850; 86900; 86923; 99284; P9016

== ENCOUNTER 2020-03-30 13:01 | Emergency (ER) | payer MEDICAID ==
[~2020-03-30] VITALS: Ht 157.5 cm; Wt 67.6 kg
--- NOTE | 2020-03-30 13:42 | NUR ---
THIS IS A 49 YO F W/ C/O LLE SWELLING STARTING THIS MORNING. PT DENIES PAIN/C/P/SOB/DIZZINESS. PT REPORTS LAST HEROIN USE X2 DAYS, DENIES INJECTING IN LEGS. PT REPORTS HX COPD AND FREQUENT BLOOD TRANSFUSIONS FOR GI BLEEDING R/T ULCERS. PT RESTING ON GURNEY W/ CALL LIGHTI N REACH. RESP EVEN AND UNLABORED, NADN. AWAITING ED EVAL.
--- NOTE | 2020-03-30 14:40 | NUR ---
US AT BEDSIDE
[2020-03-30 14:45] VITALS: BP 106/80
--- NOTE | 2020-03-30 15:41 | NUR ---
Patient/Caregiver given discharge instructions and they have confirmed that they understand the instructions. Patient ambulatory with steady gait. Taxi voucher provided.
== END 2020-03-30 15:45 | disposition home or self-care (01) ==
LOC: ED 15:35
DX: R60.0 Localized edema (principal); F11.129 Opioid abuse with intoxication, unspecified; I10 Essential (primary) hypertension; J44.9 Chronic obstructive pulmonary disease, unspecified; G43.909 Migraine, unspecified, not intractable, without status migrainosus
CPT/HCPCS: 99284

== ENCOUNTER 2020-06-16 12:53 | Inpatient (IN) | payer MEDICAID ==
[~2020-06-16] VITALS: Ht 157.5 cm; Wt 71.4 kg
[~2020-06-16 12:53] MED LIST changes: +SULF-23 PO; -SULF1TAB24 PO
[2020-06-16] MEDS ORDERED: SODIUM CHLORIDE FLUSH 10ML SYR IVF ONE (13:30)
--- NOTE | 2020-06-16 13:38 | NUR ---
TASK RN: PT WC'D TO ROOM 19 W/ C/O MID ABD PAIN AND FEELING LETHARGIC AND "LIKE I'M GOING TO PASS OUT". PT NOTED T BE PALE AND DIAPHORETIC. PT AOX4 BUT NOTED TO BE LETHARGIC. STATES SHE RECENTLY QUIT DOING HEROIN AND TOOK HER METHADONE TODAY. PT RESTING ON GURNEY. PLACED ON 2L NC SATING 97%. INITAL O2 WAS 88% RA. MONITORS APPLIED. VSS. REPORT TO KIRK, PRIMARY RN'S.
[2020-06-16 13:41] LABS: MICROSCOPIC NOT IND
[2020-06-16 13:42] LABS: BASOPHILS % (AUTO) 2 % (0-1); EOSINOPHILS % (AUTO) 3 % (1-7); LYMPHOCYTES % (AUTO) 30 % (22-44); MEAN PLATELET VOLUME 9.1 fL (7.4-10.4); MONOCYTES % (AUTO) 6 % (2-9); NEUTROPHILS % (AUTO) 59 % (42-75); PLATELET COUNT 333 x10^3/uL (130-400); RED BLOOD COUNT 3.48 x10^6/uL (3.82-5.3); RED CELL DISTRIBUTION WIDTH 19.5 % (9.6-15.2)
[2020-06-16 13:52] LABS: ALANINE AMINOTRANSFERASE 16 U/L (12-78); ALBUMIN 3.3 g/dL (3.4-5.0); ANION GAP 4 mmol/L (5-15); CALCIUM 8.1 mg/dL (8.5-10.1); CHLORIDE 109 mmol/L (98-107); CREATININE 0.78 mg/dL (0.55-1.02)
--- NOTE | 2020-06-16 13:52 | NUR ---
PT RESTING IN BED, ALL MONITORS ATTACHED, NSR, VSS. PT STATES 8/10 PAIN. PT A&O BUT LETHARGIC, RESPS EVEN AND UNLABORED, SKIN PALE AND CLAMMY. CRITICAL LAB VALUES DOCUMENTED, ORDERS RECEIEVED.
[2020-06-16 13:59] LABS: MEAN CORPUSCULAR HGB CONC 28.4 g/dL (32.4-35.8)
[2020-06-16 14:00] LABS: ALKALINE PHOSPHATASE 82 U/L (45-117); BILIRUBIN,TOTAL 0.3 mg/dL (0.2-1.0); TOTAL PROTEIN 7.3 g/dL (6.4-8.2); TROPONIN I < 0.015 ng/mL (0.000-0.045)
[2020-06-16 14:17] LABS: MD MORPH REVIEW ONLY
[2020-06-16 14:19] LABS: ANISOCYTOSIS 2+; HYPOCHROMIA 2+; MICROCYTOSIS 2+; OVALOCYTES 1+; POLYCHROMASIA 1+
[2020-06-16 14:22] LABS: <PLATELET ESTIMATE> ADEQUATE; LARGE PLATELETS 1+; TEAR DROPS 1+
--- NOTE | 2020-06-16 14:24 | NUR ---
BLOOD REQUESTED FROM BLOOD BANK
[2020-06-16 14:52] VITALS: BP 107/77
--- NOTE | 2020-06-16 15:01 | NUR ---
PRECEPTOR RN NOTE: BLOOD TRANSFUSION INITIATED, REPORT GIVEN TO BREAK CHENG MCKNIGHT WHO IS MONITORING THE PT AT BEDSIDE FOR FIRST 15 MIN PER POLICY. PT DROWSY, ORIENTED, RESPS EVEN AND UNLABORED. KENAN.
[2020-06-16 15:06] VITALS: BP 96/60
--- NOTE | 2020-06-16 15:24 | NUR ---
PT RESTING IN BED. VSS. NO TRANSFUSION REACTION NOTED
--- NOTE | 2020-06-16 15:48 | NUR ---
REPORT GIVEN TO RECEIVING CHENG GARCIA
--- NOTE | 2020-06-16 15:58 | NUR ---
PT A&O, RESPS EVEN AND UNLABORED 16-18, BLOOD INFUSING, TRANSFERRED UP TO FLOOR WITH TECH AND O2
[2020-06-16] MEDS ORDERED: BISACODYL 10 MG SUPP PR PRN (16:00)
[2020-06-16] MEDS ORDERED: hydrALAzine 20 MG/ML, 1ML IVPush PRN (16:00)
[2020-06-16] MEDS ORDERED: TEMAZEPAM 15 MG CAPSULE PO PRN (16:00)
[2020-06-16] MEDS ORDERED: MELATONIN 5 MG TABLET PO PRN (16:00)
[2020-06-16] MEDS ORDERED: ONDANSETRON 2MG/ML, 2ML IVPush PRN (16:00)
[2020-06-16] MEDS ORDERED: LORazepam 2 MG/ML, 1ML IVPush PRN (16:00)
[2020-06-16] MEDS ORDERED: POLYETHYLENE GLYCOL 17 GM PACKET PO PRN (16:00)
[2020-06-16] MEDS ORDERED: OXYcodone IR 5MG TABLET PO PRN (16:00)
[2020-06-16] MEDS ORDERED: ACETAMINOPHEN 325 MG TABLET PO PRN (16:00)
[2020-06-16] MEDS ORDERED: DOCUSATE 100 MG CAPSULE PO PRN (16:00)
[2020-06-16 16:18] VITALS: BP 100/68
[2020-06-16] MEDS ORDERED: ALBUTEROL NEBULIZER INH (16:54)
[2020-06-16] MEDS ORDERED: ALBUTEROL INHALER INH (16:54)
[2020-06-16] MEDS ORDERED: SYMBICORT INH (16:56)
[2020-06-16] MEDS ORDERED: OMEP-110 PO (16:56)
[2020-06-16] MEDS ORDERED: CLON-364 PO (16:56)
--- NOTE | 2020-06-16 16:56 | NUR ---
PRECEPTOR RN NOTE PT CANNOT RECALL HOME MEDS/DOSES, VERIFIED PHARMACY IS [facility] [address]. PHARMACY CALLED, MED REC COMPLETED PER SCENE PAINTER. SCENE PAINTER STATES PT HAS NO RECORD OF METHADONE PRESCRIBED EVER. RECEIVING RN NOTIFIED.
[2020-06-16] MEDS ORDERED: PANTOPRAZOLE 40 MG IV IVPush SCH (17:00)
[2020-06-16] MEDS ORDERED: ASCORBIC ACID 500 MG TABLET PO SCH (17:00)
[2020-06-16] MEDS ORDERED: FERROUS SULFATE 325 MG TABLET PO SCH (17:00)
[2020-06-16 17:58] VITALS: BP 82/49
[2020-06-16] MEDS ORDERED: ALBUTEROL HFA 90 MCG/SPRAY INH PRN (18:30)
[2020-06-16 18:32] VITALS: BP 100/66
[2020-06-16] MEDS ORDERED: FAMOTIDINE 20 MG TABLET PO SCH (21:00)
[2020-06-17] MEDS ORDERED: SYMBICORT INH SCH (09:00)
[2020-06-17] MEDS ORDERED: PROPRANOLOL 10 MG TABLET PO SCH (09:00)
== END 2020-06-16 18:45 | disposition left against medical advice (07) | DRG 392 ==
LOC: ED 15:20 → 4NW 15:25
PROVIDERS: ADMIT Family Medicine; ATTEND Family Medicine
DX: R10.9 Unspecified abdominal pain (principal); F17.200 Nicotine dependence, unspecified, uncomplicated; F41.1 Generalized anxiety disorder; I10 Essential (primary) hypertension; J44.9 Chronic obstructive pulmonary disease, unspecified; R09.02 Hypoxemia; D50.0 Iron deficiency anemia secondary to blood loss (chronic); K44.9 Diaphragmatic hernia without obstruction or gangrene; G43.909 Migraine, unspecified, not intractable, without status migrainosus; Z53.29 Procedure and treatment not carried out because of patient's decision for other reasons; Z87.11 Personal history of peptic ulcer disease
CPT/HCPCS: 36415; 36430; 71045; 80053; 81003; 83690; 84484; 85025; 86850; 86900; 86923; 93005; 99285; G0378; P9016

== ENCOUNTER 2020-06-17 13:01 | Emergency (ER) | payer MEDICAID ==
[~2020-06-17] VITALS: Ht 157.5 cm; Wt 73.8 kg
[~2020-06-17 13:01] MED LIST changes: +ALBUTEROL INHALER INH; +ALBUTEROL NEBULIZER INH; +SYMBICORT INH
[2020-06-17] MEDS ORDERED: NALOXONE 0.4 MG/ML, 1ML ONE (14:14)
[2020-06-17 14:18] LABS: BASOPHILS % (AUTO) 2 % (0-1); EOSINOPHILS % (AUTO) 5 % (1-7); LYMPHOCYTES % (AUTO) 37 % (22-44); MEAN CORPUSCULAR HEMOGLOBIN 17.6 pg (27.0-34.8); MEAN PLATELET VOLUME 8.7 fL (7.4-10.4); MONOCYTES % (AUTO) 6 % (2-9); NEUTROPHILS % (AUTO) 50 % (42-75); PLATELET COUNT 309 x10^3/uL (130-400); RED BLOOD COUNT 3.91 x10^6/uL (3.82-5.3)
--- NOTE | 2020-06-17 14:18 | NUR ---
Pt came back fromthe restroom after 35 min and became altered, low spo2. MD Merlos notified. 0.4mg intrnasal given per .
[2020-06-17 14:20] LABS: MEAN CORPUSCULAR HGB CONC 29.3 g/dL (32.4-35.8)
--- NOTE | 2020-06-17 14:20 | NUR ---
BREAK RN: FIRST ENCOUNTER WITH PT. PT FALLING ASLEEPING WHILE SITTING ON GURNEY, BUT WILL ANSWER QUESTIONS ACCORDINGLY WHEN ASKED. MAKI RN AT BEDSIDE FOR NARCAN ADMIN. PT CONNECTED TO MONITORING. CALL LIGHT IN REACH.
[2020-06-17 14:23] LABS: MD NO
--- NOTE | 2020-06-17 14:23 | NUR ---
CONVICT GUARD. LAB CALLED CRITICAL HGB OF 6.9. PROVIDER MADE AWARE. PT HAD ELOPED PRIOR TO CALL. PRIMARY AND MD AWARE.
[2020-06-17] MEDS ORDERED: NALOXONE 0.4 MG/ML, 1ML IVPush ONE (14:30)
[2020-06-17 14:31] LABS: ALANINE AMINOTRANSFERASE 19 U/L (12-78); ALBUMIN 3.2 g/dL (3.4-5.0); CALCIUM 8.3 mg/dL (8.5-10.1); CHLORIDE 106 mmol/L (98-107); CREATININE 0.72 mg/dL (0.55-1.02)
[2020-06-17 14:37] LABS: ALKALINE PHOSPHATASE 84 U/L (45-117); ANION GAP 3 mmol/L (5-15); BILIRUBIN,TOTAL 0.3 mg/dL (0.2-1.0); TOTAL PROTEIN 6.9 g/dL (6.4-8.2)
--- NOTE | 2020-06-17 14:41 | NUR ---
1421 Pt alert, ambulated with a steady gait and eloped
== END 2020-06-17 14:26 | disposition left against medical advice (07) ==
LOC: ED 14:13
DX: R42 Dizziness and giddiness (principal); R53.1 Weakness; F11.10 Opioid abuse, uncomplicated; D50.0 Iron deficiency anemia secondary to blood loss (chronic); J44.9 Chronic obstructive pulmonary disease, unspecified; I10 Essential (primary) hypertension; G43.909 Migraine, unspecified, not intractable, without status migrainosus
CPT/HCPCS: 36415; 80053; 83690; 85025; 86850; 86900; 99283

== ENCOUNTER 2020-06-30 09:48 | Emergency (ER) | payer MEDICAID ==
[~2020-06-30] VITALS: Ht 157.5 cm; Wt 71.8 kg
[2020-06-30 09:57] VITALS: BP 126/86
--- NOTE | 2020-06-30 11:02 | NUR ---
DC EDUCATION PROVIDED, PT DEMONSTRATES UNDERSTANDING. PT AMBULATED STEADILY TO DC WITH RN
== END 2020-06-30 11:04 | disposition home or self-care (01) ==
LOC: ED 10:11
DX: L03.116 Cellulitis of left lower limb (principal); I10 Essential (primary) hypertension; J44.9 Chronic obstructive pulmonary disease, unspecified; Z76.0 Encounter for issue of repeat prescription
CPT/HCPCS: 99283

== ENCOUNTER 2020-07-10 19:41 | Emergency (ER) | payer MEDICAID ==
[~2020-07-10] VITALS: Ht 157.5 cm; Wt 70.1 kg
--- NOTE | 2020-07-10 20:10 | NUR ---
PT PRESENTS TO ER FOR SOB, PT HAS AUDIBLE EXPIRATORY WHEEZING, PT STARTED ON 4 LPM NASAL CANULE TO KEEP OXYGENATION ABOUT 92%
[2020-07-10] MEDS ORDERED: methylPREDNISolone SOD SUCC 125 MG/2 ML ONE (20:25)
[2020-07-10] MEDS ORDERED: ALBUTEROL/IPRATROPIUM 2.5MG/0.5MG, 3 ML ONE (20:25)
[2020-07-10] MEDS ORDERED: SODIUM CHLORIDE FLUSH 10ML SYR IVF ONE (20:30)
[2020-07-10] MEDS ORDERED: ALBUTEROL/IPRATROPIUM 2.5MG/0.5MG, 3 ML NPPB PRN (20:30)
[2020-07-10] MEDS ORDERED: methylPREDNISolone SOD SUCC 125 MG/2 ML IV ONE (20:30)
[2020-07-10 20:56] LABS: MEAN CORPUSCULAR HEMOGLOBIN 24.3 pg (27.0-34.8); MEAN CORPUSCULAR HGB CONC 31.1 g/dL (32.4-35.8); MEAN PLATELET VOLUME 8.9 fL (7.4-10.4); PLATELET COUNT 527 x10^3/uL (130-400); RED BLOOD COUNT 4.26 x10^6/uL (3.82-5.3); RED CELL DISTRIBUTION WIDTH 39.1 % (9.6-15.2)
[2020-07-10 21:05] LABS: ALANINE AMINOTRANSFERASE 24 U/L (12-78); ALBUMIN 3.1 g/dL (3.4-5.0); ANION GAP 4 mmol/L (5-15); CALCIUM 8.2 mg/dL (8.5-10.1); CHLORIDE 110 mmol/L (98-107); CREATININE 0.69 mg/dL (0.55-1.02)
[2020-07-10 21:10] LABS: ALKALINE PHOSPHATASE 70 U/L (45-117); BILIRUBIN,TOTAL 0.1 mg/dL (0.2-1.0); TOTAL PROTEIN 6.8 g/dL (6.4-8.2); TROPONIN I < 0.015 ng/mL (0.000-0.045)
[2020-07-10 21:27] LABS: MD YES
[2020-07-10 21:28] LABS: ANISOCYTOSIS 2+; BAND#(MANUAL) 0.21 x10^3/uL; BANDS%(MANUAL) 3 % (0-7); BASOS#(MANUAL) 0.07 x10^3/uL (0-0.1); BASOS% (MANUAL) 1 % (0-1); EOS#(MANUAL) 1.38 x10^3/uL (0.0-0.4); EOS% (MANUAL) 20 % (1-7); HYPOCHROMIA 2+; LYMPH#(MANUAL) 1.59 x10^3/uL (1-3.4); LYMPHS% (MANUAL) 23 % (22-44); MICROCYTOSIS 2+; MONOS#(MANUAL) 0.41 x10^3/uL (0.3-2.7); MONOS% (MANUAL) 6 % (2-9); POLYCHROMASIA 1+; SEG#(MANUAL) 3.24 x10^3/uL (1.8-6.8); SEGS% (MANUAL) 47 % (42-75)
[2020-07-10 21:29] LABS: OVALOCYTES 1+; TARGET CELLS 1+; TEAR DROPS 1+
[2020-07-10 21:31] LABS: <PLATELET ESTIMATE> INCREASED; LARGE PLATELETS 1+
[2020-07-10 22:28] VITALS: BP 109/79
--- NOTE | 2020-07-10 22:29 | NUR ---
PT LEFT AMA, PT WANTED TO GO HOME AND MAKE SURE HER ALCOHOLIC DAUGHTER DID NOT LET HER DOG OUT OF THE HOUSE, THIS RN ALONG WITH ED DOCTOR WENT INTO PTS ROOM TO CONVINCE HER TO STAY BUT PT WAS ADAMANT ON LEAVING TO GO HOME TO HER DOG, PT SIGNED AMA FORM AND WAS DISCHARGED WITH SCRIPTS
== END 2020-07-10 22:31 | disposition home or self-care (01) ==
LOC: ED 20:55
DX: J45.51 Severe persistent asthma with (acute) exacerbation (principal); R09.02 Hypoxemia; I10 Essential (primary) hypertension; J44.9 Chronic obstructive pulmonary disease, unspecified; F17.200 Nicotine dependence, unspecified, uncomplicated
CPT/HCPCS: 36415; 71045; 80053; 83605; 83735; 83880; 84145; 84484; 85025; 87040; 93005; 96374; 99285; J2930

== ENCOUNTER 2020-09-02 13:39 | Inpatient (IN) | payer MEDICAID ==
[~2020-09-02] VITALS: Ht 157.5 cm; Wt 76.0 kg
[~2020-09-02 13:39] MED LIST changes: -OLAN7.5T5 PO; +[UNRECOGNIZED DRUG - CODE] PO
[2020-09-02] MEDS ORDERED: METHADONE PO (13:56)
--- NOTE | 2020-09-02 14:16 | NUR ---
RT AT BEDSIDE FOR ASSESSMENT AND BREATHING TX.
[2020-09-02] MEDS ORDERED: ALBUTEROL/IPRATROPIUM 2.5MG/0.5MG, 3 ML ONE (14:18)
[2020-09-02] MEDS ORDERED: SODIUM CHLORIDE FLUSH 10ML SYR IVF ONE (14:30)
[2020-09-02] MEDS ORDERED: ALBUTEROL/IPRATROPIUM 2.5MG/0.5MG, 3 ML NPPB ONE (14:30)
[2020-09-02 15:05] LABS: MEAN CORPUSCULAR HEMOGLOBIN 24.2 pg (27.0-34.8); MEAN PLATELET VOLUME 8.6 fL (7.4-10.4); PLATELET COUNT 339 x10^3/uL (130-400); RED BLOOD COUNT 4.74 x10^6/uL (3.82-5.3); RED CELL DISTRIBUTION WIDTH 19.3 % (9.6-15.2)
--- NOTE | 2020-09-02 15:05 | NUR ---
PT RESTING IN BED, RESPIRATIONS SLIGHTLY LABORED, NAD NOTED AT THIS TIME. SIDE RAILS UP, CALL LIGHT IN REACH. LABS DRAWN AND SENT.
[2020-09-02 15:17] LABS: ALBUMIN 3.1 g/dL (3.4-5.0); ANION GAP 3 mmol/L (5-15); CALCIUM 8.7 mg/dL (8.5-10.1); CHLORIDE 101 mmol/L (98-107)
[2020-09-02 15:53] LABS: EOS#(MANUAL) 1.53 x10^3/uL (0.0-0.4); EOS% (MANUAL) 14 % (1-7); LYMPHS% (MANUAL) 22 % (22-44)
[2020-09-02 15:54] LABS: MONOS#(MANUAL) 0.33 x10^3/uL (0.3-2.7); MONOS% (MANUAL) 3 % (2-9); SEG#(MANUAL) 6.65 x10^3/uL (1.8-6.8); SEGS% (MANUAL) 61 % (42-75)
[2020-09-02 15:56] LABS: ANISOCYTOSIS 1+; HYPOCHROMIA 1+; MICROCYTOSIS 1+; OVALOCYTES 1+
[2020-09-02 15:57] LABS: <PLATELET ESTIMATE> ADEQUATE; <PLT MORPHOLOGY> NORMAL PLT MORPH; POLYCHROMASIA 1+; TARGET CELLS 1+
--- NOTE | 2020-09-02 16:02 | NUR ---
PT AMBULATES WELL TO BATHROOM INDEPENDENTLY WITHOUT O2 AND BACK TO ROOM WITHOUT DIFFICULTY. PT BACK ON NC O2. NAD NOTED AT THIS TIME.
[2020-09-02] MEDS ORDERED: BACLOFEN 10 MG TABLET PO PRN (16:30)
[2020-09-02] MEDS ORDERED: ACETAMINOPHEN 325 MG TABLET PO PRN (16:30)
[2020-09-02] MEDS ORDERED: BUTALB/APAP/CAFFEINE 50MG/325MG/40MG PO PRN ×2 (16:30)
[2020-09-02] MEDS ORDERED: ONDANSETRON 2MG/ML, 2ML IVPush PRN (16:30)
[2020-09-02] MEDS ORDERED: HYDROcodone/APAP 5/325 TABLET PO PRN (16:30)
[2020-09-02] MEDS ORDERED: ENALAPRILAT 1.25 MG/ML, 2ML IVPush PRN (16:30)
[2020-09-02] MEDS ORDERED: GUAIFENESIN/DM 200-20MG, 10ML UDC PO PRN (16:30)
[2020-09-02] MEDS ORDERED: ONDANSETRON ODT 4 MG PO PRN (16:30)
[2020-09-02] MEDS ORDERED: hydrALAzine 20 MG/ML, 1ML IVPush PRN (16:30)
--- NOTE | 2020-09-02 16:35 | NUR ---
DIET TRAY ORDERED.
[2020-09-02] MEDS ORDERED: methylPREDNISolone SOD SUCC 125 MG/2 ML ONE (16:39)
[2020-09-02] MEDS ORDERED: ENOXAPARIN 40 MG/0.4 ML ONE (16:39)
[2020-09-02] MEDS: methylPREDNISolone SOD SUCC 125 MG/2 ML IVPush SCH (16:41)
[2020-09-02] MEDS: ENOXAPARIN 40 MG/0.4 ML SQ SCH (16:42)
[2020-09-02] MEDS ORDERED: ALBUTEROL/IPRATROPIUM 2.5MG/0.5MG, 3 ML NPPB PRN (17:00)
--- NOTE | 2020-09-02 17:02 | NUR ---
FIRST ATTEMPT TO CALL REPORT.
--- NOTE | 2020-09-02 17:03 | NUR ---
RN UNABLE TO RECIEVE REPORT AT THIS TIME. PT SITTING UP IN BED, ASKING ABOUT DINNER. AWAITING TRAY IN ED. NAD NOTED AT THIS TIME.
--- NOTE | 2020-09-02 17:23 | NUR ---
Second attempt to call report.
[2020-09-02] MEDS: ALBUTEROL/IPRATROPIUM 2.5MG/0.5MG, 3 ML NPPB SCH ×2 (18:00→23:02)
--- NOTE | 2020-09-02 18:00 | NUR ---
REPORT GIVEN TO CHENG GUZMAN.
--- NOTE | 2020-09-02 18:05 | NUR ---
PT RESTING WITH EYES CLOSED IN BED. NAD NOTED AT THIS TIME. RESPIRATIONS EVEN AND UNLABORED ON NC.
[2020-09-02 21:13] VITALS: BP 102/71
[2020-09-02] MEDS: MELATONIN 5 MG TABLET PO SCH (21:27)
[2020-09-02] MEDS: DOXYCYCLINE 100MG TABLET PO SCH (21:27)
[2020-09-03 00:43] VITALS: BP 107/65
[2020-09-03] MEDS: methylPREDNISolone SOD SUCC 125 MG/2 ML IVPush SCH ×3 (00:54→20:42)
[2020-09-03 01:13] VITALS: BP 102/71
[2020-09-03] MEDS: METHADONE 10 MG TABLET PO SCH ×2 (05:57→09:00)
[2020-09-03 06:00] LABS: MEAN CORPUSCULAR HEMOGLOBIN 23.8 pg (27.0-34.8); MEAN CORPUSCULAR HGB CONC 30.8 g/dL (32.4-35.8); MEAN PLATELET VOLUME 9.1 fL (7.4-10.4); PLATELET COUNT 316 x10^3/uL (130-400); RED BLOOD COUNT 4.33 x10^6/uL (3.82-5.3); RED CELL DISTRIBUTION WIDTH 20.2 % (9.6-15.2)
[2020-09-03 06:08] LABS: CHLORIDE 102 mmol/L (98-107)
[2020-09-03 06:17] LABS: ALANINE AMINOTRANSFERASE 16 U/L (12-78); ALBUMIN 2.7 g/dL (3.4-5.0); ALKALINE PHOSPHATASE 78 U/L (45-117); ANION GAP 6 mmol/L (5-15); BILIRUBIN,TOTAL 0.1 mg/dL (0.2-1.0); CALCIUM 8.9 mg/dL (8.5-10.1); CREATININE 0.73 mg/dL (0.55-1.02); TOTAL PROTEIN 6.5 g/dL (6.4-8.2)
[2020-09-03 06:41] LABS: BAND#(MANUAL) 0.07 x10^3/uL; BANDS%(MANUAL) 1 % (0-7); LYMPH#(MANUAL) 0.33 x10^3/uL (1-3.4); LYMPHS% (MANUAL) 5 % (22-44); MONOS#(MANUAL) 0.07 x10^3/uL (0.3-2.7); MONOS% (MANUAL) 1 % (2-9); SEG#(MANUAL) 6.14 x10^3/uL (1.8-6.8); SEGS% (MANUAL) 93 % (42-75)
[2020-09-03 06:42] LABS: ANISOCYTOSIS 1+; HYPOCHROMIA 1+; MICROCYTOSIS 1+; OVALOCYTES 1+; POLYCHROMASIA 1+
[2020-09-03 06:43] LABS: <PLATELET ESTIMATE> ADEQUATE; <PLT MORPHOLOGY> NORMAL PLT MORPH
[2020-09-03] MEDS: ALBUTEROL/IPRATROPIUM 2.5MG/0.5MG, 3 ML NPPB SCH ×4 (06:43→20:00)
[2020-09-03 07:29] VITALS: BP 116/69
[2020-09-03] MEDS ORDERED: METHADONE 10 MG TABLET PO SCH (09:00)
[2020-09-03] MEDS: OMEPRAZOLE 20 MG CAPSULE.DR PO SCH (11:05)
[2020-09-03] MEDS: SENNA/DOCUSATE TABLET PO SCH (11:05)
[2020-09-03] MEDS: DOXYCYCLINE 100MG TABLET PO SCH ×2 (11:06→20:10)
[2020-09-03 13:08] VITALS: BP 100/61
[2020-09-03] MEDS ORDERED: POTASSIUM PHOSPHATE 44 MEQ in SODIUM CHLORIDE 0.9% 500 ML IV ONE (16:00)
[2020-09-03] MEDS: ENOXAPARIN 40 MG/0.4 ML SQ SCH (16:43)
[2020-09-03 18:57] VITALS: BP 130/80
[2020-09-03] MEDS: MELATONIN 5 MG TABLET PO SCH (20:10)
[2020-09-04 01:38] VITALS: BP 119/79
[2020-09-04] MEDS: methylPREDNISolone SOD SUCC 125 MG/2 ML IVPush SCH (05:16)
[2020-09-04] MEDS ORDERED: METHADONE 10 MG TABLET PO SCH (06:00)
[2020-09-04] MEDS ORDERED: ALBUTEROL/IPRATROPIUM 2.5MG/0.5MG, 3 ML NPPB SCH (07:00)
[2020-09-04 07:20] VITALS: BP 103/66
[2020-09-04] MEDS ORDERED: PRED20TA PO (08:21)
[2020-09-04] MEDS ORDERED: DOXY100T PO (08:21)
[2020-09-04] MEDS: SENNA/DOCUSATE TABLET PO SCH (08:39)
[2020-09-04] MEDS: OMEPRAZOLE 20 MG CAPSULE.DR PO SCH (08:39)
[2020-09-04] MEDS: DOXYCYCLINE 100MG TABLET PO SCH (08:39)
[2020-09-04] MEDS ORDERED: METH40TA3 PO (11:49)
== END 2020-09-04 13:45 | disposition home or self-care (01) | DRG 189 ==
LOC: ED 13:50 → EDIP 16:26 → 3N 18:23
PROVIDERS: ADMIT Internal Medicine; ATTEND Internal Medicine
DX: J96.01 Acute respiratory failure with hypoxia (principal); J44.1 Chronic obstructive pulmonary disease with (acute) exacerbation; E83.39 Other disorders of phosphorus metabolism; F11.90 Opioid use, unspecified, uncomplicated; F17.200 Nicotine dependence, unspecified, uncomplicated; F41.1 Generalized anxiety disorder; I10 Essential (primary) hypertension; Z90.710 Acquired absence of both cervix and uterus; Z90.49 Acquired absence of other specified parts of digestive tract; Z82.49 Family history of ischemic heart disease and other diseases of the circulatory system; Z83.3 Family history of diabetes mellitus
CPT/HCPCS: 36415; 71045; 80048; 80053; 82040; 83735; 84100; 85025; 93005; 94640; 96374; G0378; J1650; J2930; J7040; J7512

== ENCOUNTER 2020-10-24 05:11 | Inpatient (IN) | payer MEDICAID ==
[~2020-10-24] VITALS: Ht 157.5 cm; Wt 74.7 kg
[2020-10-24] VITALS (7 sets, daily range): BP systolic 101–146; BP diastolic 65–72
[~2020-10-24 05:11] MED LIST changes: -DOXY100C2 PO; +DOXY100C5 PO; +METHADONE PO
[2020-10-24] MEDS ORDERED: ALBUTEROL/IPRATROPIUM 2.5MG/0.5MG, 3 ML NPPB ONE (06:00)
[2020-10-24 07:23] LABS: ALBUMIN 2.7 g/dL (3.4-5.0); ANION GAP 6 mmol/L (5-15); CALCIUM 7.8 mg/dL (8.5-10.1); CHLORIDE 107 mmol/L (98-107); CREATININE 0.62 mg/dL (0.55-1.02)
--- NOTE | 2020-10-24 09:09 | NUR ---
musical instrument maker note: Pt to room from lobby.
--- NOTE | 2020-10-24 09:24 | NUR ---
PT PLACED ON ALL ROOM MONITORING. PT STATES NO RECTAL BLEEDING OR BLOOD IN STOOL. PT FEELS SOB, WHEEZING SLIGHTLY AND THINKS HER BLOOD COUNT LOW AND HER COPD "ACTING UP". PT ASKING FOR METHADONE, MISSED HER 0600 DOSE. LAB RESULTS REVIEWED AND CBC NEEDS REDRAW. VSS/UPDATED IN COMPUTER. WARM BLANKET PROVIDED, CALL LIGHT WITHIN REACH. RESP ISO SIGN AT DOORWAY.
--- NOTE | 2020-10-24 09:29 | NUR ---
LAB IN TO REDRAW.
[2020-10-24 10:40] LABS: MEAN CORPUSCULAR HEMOGLOBIN 19.8 pg (27.0-34.8); MEAN CORPUSCULAR HGB CONC 30.2 g/dL (32.4-35.8); MEAN PLATELET VOLUME 9.1 fL (7.4-10.4); PLATELET COUNT 282 x10^3/uL (130-400); RED BLOOD COUNT 3.12 x10^6/uL (3.82-5.3); RED CELL DISTRIBUTION WIDTH 22.3 % (9.6-15.2)
[2020-10-24 11:04] LABS: EOS#(MANUAL) 0.36 x10^3/uL (0.0-0.4); EOS% (MANUAL) 4 % (1-7); LYMPH#(MANUAL) 2.46 x10^3/uL (1-3.4); LYMPHS% (MANUAL) 27 % (22-44); MONOS% (MANUAL) 11 % (2-9); SEG#(MANUAL) 5.28 x10^3/uL (1.8-6.8); SEGS% (MANUAL) 58 % (42-75)
[2020-10-24 11:05] LABS: ANISOCYTOSIS 1+; MICROCYTOSIS 2+; OVALOCYTES 1+
[2020-10-24 11:07] LABS: HYPOCHROMIA 2+
[2020-10-24 11:08] LABS: <PLATELET ESTIMATE> ADEQUATE; <PLT MORPHOLOGY> NORMAL PLT MORPH; TEAR DROPS 1+
--- NOTE | 2020-10-24 11:52 | NUR ---
MULTIPLE ATTEMPTS FOR IV WITH US. ASSIST ERP WITH RECTAL EXAM, GUIAC POSITIVE.
--- NOTE | 2020-10-24 12:07 | NUR ---
PT STATING SHE WANTS TO LEAVE ER AND GO HOME IF SHE DOESN'T GET HER METHADONE. PT STATES SHE TAKES 60 MG METHADONE A DAY. CALL TO PHARMACY TO VERIFY IF METHADONE CAN BE OBTAINED. ERP EXPLAINED RISKS OF LEAVING AMA. AWAITING FURTHER ORDERS FROM ERP. PT SLEEPING AT THIS TIME. CALL LIGHT WITHIN REACH.
[2020-10-24] MEDS ORDERED: METHADONE 40 MG TABLET.SOL PO ONE ×2 (12:30)
--- NOTE | 2020-10-24 12:35 | NUR ---
METHADONE 60 MG PO ORDERED. CONTINUE AWAIT IV PLACEMENT.
[2020-10-24] MEDS ORDERED: SODIUM CHLORIDE FLUSH 10ML SYR IVF PRN (13:00)
[2020-10-24] MEDS ORDERED: ALBUTEROL-IPRATROPIUM MDI INH INH PRN (13:00)
[2020-10-24] MEDS: METHADONE 10 MG TABLET PO SCH (14:52)
[2020-10-24] MEDS: PANTOPRAZOLE 40 MG IV IVPush SCH ×2 (14:52→21:05)
--- NOTE | 2020-10-24 14:55 | NUR ---
METHADONE OBTAINED FROM PHARMACY AND GIVEN. REPORT TO JAQUELIN ANAND WHO WILL START BLOOD TRANSFUSION ON ARRIVAL TO FLOOR. PT READY FOR TRANSPORT.
[2020-10-24] MEDS ORDERED: ALBUTEROL/IPRATROPIUM 2.5MG/0.5MG, 3 ML ONE (14:58)
[2020-10-24] MEDS ORDERED: PANTOPRAZOLE 40 MG IV ONE (14:58)
[2020-10-24] MEDS ORDERED: FUROSEMIDE 20 MG/2 ML IVPush ONE (15:00)
[2020-10-24] MEDS ORDERED: ONDANSETRON 2MG/ML, 2ML IV PRN (15:00)
[2020-10-24] MEDS ORDERED: ACETAMINOPHEN 650 MG SUPP PR PRN (15:00)
[2020-10-24] MEDS: ALBUTEROL-IPRATROPIUM MDI INH INH SCH ×2 (16:03→21:07)
[2020-10-25] VITALS: BP 112/65
[2020-10-25] MEDS: PANTOPRAZOLE 40 MG IV IVPush SCH (02:01)
[2020-10-25] MEDS: ALBUTEROL HFA 90 MCG/SPRAY INH PRN ×2 (06:33→14:37)
[2020-10-25] MEDS: METHADONE 10 MG TABLET PO SCH (06:34)
[2020-10-25] MEDS ORDERED: IRON DEXTRAN IV PER PHARMACY IV SCH (09:30)
[2020-10-25] MEDS ORDERED: IRON DEXTRAN COMPLEX 25 MG in SODIUM CHLORIDE 0.9% 50 ML IV ONE (09:30)
[2020-10-25] MEDS ORDERED: EPINEPHRINE 1 MG/ML, 1ML IV PRN (09:30)
[2020-10-25] MEDS: ALBUTEROL-IPRATROPIUM MDI INH INH SCH (09:39)
[2020-10-25 09:50] VITALS: BP 112/74
[2020-10-25] MEDS ORDERED: IRON DEXTRAN COMPLEX 1,400 MG in SODIUM CHLORIDE 0.9% 250 ML IV ONE (10:00)
[2020-10-25 14:22] VITALS: BP 132/88
[2020-10-25 15:14] VITALS: BP 109/71
== END 2020-10-25 16:32 | disposition left against medical advice (07) | DRG 812 ==
LOC: ED 09:30 → SUATTDRO 12:16 → EDIP 12:37 → 3N 15:35
PROVIDERS: ADMIT Hospitalist; ATTEND Hospitalist
PROC: 30233N1 Transfusion of Nonautologous Red Blood Cells into Peripheral Vein, Percutaneous Approach (ICD-10-PCS; 2020-10-23)
PROC: 02HV33Z Insertion of Infusion Device into Superior Vena Cava, Percutaneous Approach (ICD-10-PCS; principal; 2020-10-25)
PROC: B5181ZA Fluoroscopy of Superior Vena Cava using Low Osmolar Contrast, Guidance (ICD-10-PCS; 2020-10-25)
DX: D62 Acute posthemorrhagic anemia (principal); F11.20 Opioid dependence, uncomplicated; F17.200 Nicotine dependence, unspecified, uncomplicated; I10 Essential (primary) hypertension; Z53.29 Procedure and treatment not carried out because of patient's decision for other reasons; J44.9 Chronic obstructive pulmonary disease, unspecified; Z87.11 Personal history of peptic ulcer disease; Z90.710 Acquired absence of both cervix and uterus; Z91.19 Patient's noncompliance with other medical treatment and regimen; Z79.899 Other long term (current) drug therapy
CPT/HCPCS: 36415; 36573; 80048; 82040; 82728; 83540; 83550; 85014; 85018; 85025; 86850; 86900; 86923; 93005; 99285; G0378; J1750; C1751; C9113; J1940; J7050; P9016